=== PATIENT | female | born 1935 | race Caucasian/White ===

== ENCOUNTER → 2018-03-09 10:43 | Outpatient (CLI) | payer MEDICARE, SELFPAY ==
--- NOTE | 2018-03-09 11:34 | VDUE_ITS ---
Reason For Study: placement for dialysis Right Arm Left Arm Right cephalic vein is compressible. Left cephalic vein is compressible. Right Cephalic Vein at the shoulder Left Cephalic Vein at the shoulder measures .329 x .325 cm. measures .238 x .256 cm. Right Cephalic Vein mid bicep measures .266 Left Cephalic Vein at mid bicep x .283 cm. measures .242 x .246 cm. Right Cephalic Vein above antecub Left Cephalic Vein above antecub measures .216 x .229 cm. measures .224 x .212 cm. Right Cephalic Vein below antecub Left Cephalic Vein below antecub measures .304 x .312 cm. measures .116 x .100 cm. Right Cephalic Vein in the forearm Left Cephalic Vein in the forearm measures .233 x .245 cm. measures .104 x .100 cm. Right Cephalic Vein at the wrist Left Cephalic Vein at the wrist measures .133 x .141 cm. measures .104 x .100 cm. Right basilic vein is compressible. Left basilic vein is compressible. Right Basilic Vein at the origin Basilic vein at origin measures .254 x .237 measures .212 x .220 cm. cm. Right Basilic Vein above antecub Basilic vein above antecub measures .158 measures .224 x .241 cm. x .146 cm. Right Basilic Vein below antecub Basilic vein below antecub measures .104 measures .137 x .150 cm. x .100 cm. Right Basilic Vein in the forearm Basilic vein in the forearm measures .087 measures .129 x .150 cm. x .075 cm. Right Basilic Vein at the wrist Basilic V is too small to assess below this measures .104 x .096 cm. level. Brachial A 97.9 cm/s Brachial A 77.4 cm/s Brachial A .358 x .354 cm. Brachial A .316 x .341 cm. Radial A 69.2 cm/s Radial A 79.2 cm/s Radial A.154 x .158 cm. Radial A.141 x .133 cm. Interpretation Summary Patent and compressible bilateral upper extremity cephalic and basilic veins with dimensions as noted. Small left forearm cephalic vein throughout Small bilateral radial arteries Adequate bilateral brachial arteries Basilic veins are unusally small in the upper arms. Ordering Physician: Otf Blanco Performed By: Arnoldo Newsome RVT ???
== END ==
PROVIDERS: Family Provider Internal Medicine; PCP Internal Medicine; Referring Provider Internal Medicine Nephrology; Visit Provider Internal Medicine Nephrology
DX: Z01.818 Encounter for other preprocedural examination (principal); N18.6 End stage renal disease
CPT/HCPCS: G0365; 93970; 93971

== ENCOUNTER 2018-04-12 05:26 | Day surgery (SDC) | payer MEDICARE, SELFPAY ==
--- NOTE | 2018-04-07 08:52 | NURSING ---
TALKED WITH DAUGHTER OF PT. REQUESTS LAB TO BE DONE, CBC, AT [facility] TODAY. ORDER FAXED TO [facility]
[2018-04-12] VITALS (7 sets, daily range): BP systolic 120–143; BP diastolic 58–72; PULSE 65–72; RESP 14–16; TEMP 36.6–37.1; O2SAT 96–99; BMI 41.1
[2018-04-12 06:16] LABS: Bedside Glucose 87 mg/dL (70-110)
--- NOTE | 2018-04-12 07:01 | PCM.DC.FIST ---
Discharge Diet: Renal Diet Discharge Activity: May Not Drive - for 2-3 days or while taking narcotic pain medications., May Shower, May Take a Tub Bath - in 5 days. Lifting Restrictions: 5 pounds Keep extremity elevated above heart level: - - Keep arm elevated above the heart level for 3 days. Additional Activity Instructions:: Exercise hand vigorously with a stress ball. Call your doctor if your incision/area has: Continuous Slow Oozing, Sudden Increased Bleeding - apply pressure and call your doctor., Increased Pain/ Swelling, Increased Redness, Foul Smelling Discharge Call your doctor if you observe: Fever of 101 or Higher Suture Line Care: Avoid Pulling/Pushing, Avoid Pinching/Bending Cleanse incision/area with: Keep Dressing Clean & Dry Additional Dressing/Incision Instructions:: Change or remove dressing in one day. May protect with a gauze bandaid. Allergies/Adverse Reactions: Allergies Penicillins Allergy (Mild, Verified 04/06/18 10:32) Unknown Medications to take at Discharge carvedilol 3.125 mg tablet 3.125 mg PO BID 03/30/18 ergocalciferol (vitamin D2) 50,000 unit capsule 50,000 unit PO QWEEK 03/30/18 levothyroxine 100 mcg capsule 100 mcg PO DAILY 03/30/18 nateglinide 60 mg tablet 60 mg PO TID 03/30/18 paroxetine 40 mg tablet 40 mg PO DAILY 03/30/18 sevelamer carbonate 800 mg tablet 800 mg PO QPC 03/30/18 Aspirin [Aspir-Low] 81 mg PO DAILY 04/06/18 B Complex W-C No.20/Folic Acid [Nephrocaps Softgel] 1 mg PO DAILY 04/06/18 Cyanocobalamin (Vitamin B-12) [Cyanocobalamin Injection] 1,000 mcg IM QMONTH 04/06/18 Omeprazole [Prilosec] 20 mg PO PRN PRN 04/06/18 Rosuvastatin Calcium [Crestor] 40 mg PO QHS 04/06/18 Hydrocodone Bitart/Apap 5-325 [[place] 5MG-325MG] 1 tablet PO Q6H PRN PRN 2 Days #5 tablet 04/12/18 The following prescriptions were given: Hydrocodone Bitart/Apap 5-325 [[place] 5MG-325MG] 1 tablet PO Q6H PRN PRN 2 Days #5 tablet PRN Reason: Pain Primary Care Physician: Warren Cisse [Primary Care Provider] - Test Results: Test results from this visit will be discussed in further detail at your follow-up appointment, if applicable. Please Follow Up With: Francesco Quarles MD - [phone] When: Call to make an appointment for suture removal and follow up in 1 week.
[2018-04-12] MEDS: Heparin Injection (Vial) 5,000 UNIT/ML VIAL 5000 UNIT (08:15)
[2018-04-12] MEDS: Bupivacaine Mpf 0.5% 30 ML VIAL (08:20)
--- NOTE | 2018-04-12 08:36 | PCM.OPRPT ---
Problem List (1) Chronic renal failure, stage 5 Status: Acute Report of Operation Date of Procedure: 04/12/18 Pre-Operative Diagnosis: Stage V chronic renal failure in need of long-term hemodialysis access Post-Operative Diagnosis: Same Surgery/Procedure Performed:: Right upper extremity brachiocephalic arteriovenous fistula creation Description of Surgical Findings:: Timeout and informed consent was obtained. 82-year-old female was taken the operating placement table underwent monitored anesthesia care. 1% lidocaine mixed 50-50 with 0.5% Marcaine was used as local anesthetic. A total of 5 cc was used. Ultrasound been used to identify the course of the cephalic vein at the antecubital space. Local was instilled. A slightly oblique incision was created sharply dissection was used to harvest the cephalic vein side branches were secured with hemoclips and was dissected proximally distally to an adequate length would allow for then transposition over the brachial artery. Sharp blunt dissection was used to identify the brachial artery circumferential control was obtained. The patient received 6000 units of heparin intravenously. Peripheral vascular clamps were placed on the brachial artery 11 blade was used to make the arteriotomy was extended with Capps scissors the vein was ligated distally with 3-0 Vicryl it was spatulated and an end-to-side anastomosis was created with a running 7-0 Prolene. Prior to completion it appeared to be good antegrade and retrograde flow. The anastomosis was completed hemostasis was intact there was a Doppler audible bruit. Skin prep Steri-Strips Telfa tape dressings applied. The hand appeared to be viable. There was audible although lessened Doppler signals at the wrist. Hand appeared to be warm appeared to be viable decision was made to allow the patient to awake and monitor her for signs of a steal rather than immediately placing a restricting cuff on the vein which did not appear to be overly generous. The wound was closed with interrupted 3-0 Vicryl subdermal stitches and a running septic or 4-0 Monocryl. Steri-Strips Telfa tape dressings had been applied. Sponge instrument and needle counts reported the surgery were correct. Blood loss was minimal. She tolerated the procedure well was taken to the recovery area in satisfactory condition without apparent complication. Specimens none drains none blood loss minimal Francesco Quarles M.D., F.A.C.S. Type of Anesthesia:: Local MAC Anesthesiologist: Mauricio Broussard
== END 2018-04-12 10:21 | disposition home or self-care (01) ==
LOC: SDC 05:27 → AC 05:28
PROVIDERS: Family Provider Internal Medicine; PCP Internal Medicine; Referring Provider Surgery; Visit Provider Surgery
PROC: (CPT 36821; principal; 2018-04-12 07:00)
DX: Z45.2 Encounter for adjustment and management of vascular access device (principal); I13.11 Hypertensive heart and chronic kidney disease without heart failure, with stage 5 chronic kidney disease, or end stage renal disease; E11.22 Type 2 diabetes mellitus with diabetic chronic kidney disease; N18.5 Chronic kidney disease, stage 5; D63.1 Anemia in chronic kidney disease; E78.00 Pure hypercholesterolemia, unspecified; K21.9 Gastro-esophageal reflux disease without esophagitis; E06.9 Thyroiditis, unspecified; Z99.2 Dependence on renal dialysis; Z79.84 Long term (current) use of oral hypoglycemic drugs; Z79.82 Long term (current) use of aspirin; Z79.899 Other long term (current) drug therapy
CPT/HCPCS: 01844; 36821; 82962

== ENCOUNTER 2018-12-23 09:10 | Day surgery (SDC) | payer MEDICARE, SELFPAY ==
[2018-11-30 14:27] VITALS: BMI 41.1
--- NOTE | 2018-12-09 03:13 | HP_ITS ---
Intake Vital Signs 11/30/18 Body Mass Index (BMI) 41.1 11/30/18 Height 5 ft 1 in 11/30/18 Weight: 140 lb 11/30/18 Body Mass Index (BMI) 26.4 11/30/18 Blood Pressure 128/71 H 11/30/18 Blood Pressure Location Rt brachial 11/30/18 Respiratory Rate 18 11/30/18 Pulse Rate 66 11/30/18 Pulse Source Monitor 11/30/18 Temperature 98.5 F 11/30/18 Pulse Ox 97 11/30/18 Oxygen Delivery Method room air Intake Visit Reasons: NEEDS FISTULOGRAM/HI VEINOUS PRESSURES Chief Complaint: problem with AV Fistula Cancer Program Consultant Required: No Is patient in pain?: No Allergies Penicillins Allergy (Mild, Verified 11/30/18 14:26) Unknown Medications carvedilol 3.125 mg tablet 3.125 mg PO BID 03/30/18 [History Confirmed 11/30/18] ergocalciferol (vitamin D2) 50,000 unit capsule 50,000 unit PO QWEEK 03/30/18 [History Confirmed 11/30/18] levothyroxine 100 mcg capsule 100 mcg PO DAILY 03/30/18 [History Confirmed 11/30/18] nateglinide 60 mg tablet 60 mg PO TID 03/30/18 [History Confirmed 11/30/18] paroxetine 40 mg tablet 40 mg PO DAILY 03/30/18 [History Confirmed 11/30/18] sevelamer carbonate 800 mg tablet 800 mg PO QPC 03/30/18 [History Confirmed 11/30/18] Aspirin [Aspir-Low] 81 mg PO DAILY 04/06/18 [History Confirmed 11/30/18] B Complex W-C No.20/Folic Acid [Nephrocaps Softgel] 1 mg PO DAILY 04/06/18 [History Confirmed 11/30/18] Cyanocobalamin (Vitamin B-12) [Cyanocobalamin Injection] 1,000 mcg IM QMONTH 04/06/18 [History Confirmed 11/30/18] Omeprazole [Prilosec] 20 mg PO PRN PRN 04/06/18 [History Confirmed 11/30/18] Rosuvastatin Calcium [Crestor] 40 mg PO QHS 04/06/18 [History Confirmed 11/30/18] PFSH Medical History Problem with dialysis access (Acute) Chronic renal failure, stage 5 (Acute) Diabetes (Acute) Heart disease (Acute) Renal failure (Acute) hypercholesterolemia (Acute) HTN (hypertension) (Chronic) Surgical History (Updated 04/19/18 @ 15:00 by Yoselin Gresham) S/P appendectomy (Acute) S/P hysterectomy (Acute) dialysis cath placement (Acute) s/p right a-v fistula (Acute ~04/12/18) Family History Brother Cancer Heart disease Mother Breast cancer Father CVA (cerebral vascular accident) Social History (Updated 12/09/18 @ 15:12 by Janene Munoz PA-C) Smoking Status: Never smoker alcohol intake: never substance use type: does not use HPI HPI HPI: CARINE HODGE, is a 83 F who presents to the office today for HPI HPI Surgical H&P: Yes HPI: CARINE HODGE, is a 83 F who presents to the office today for difficulty with cannulation, decreased flows. Patient has a right upper extremity brachiocephalic arteriovenous fistula creation on 04/12/18. Patient states she started having difficult access approximately 3 weeks ago. She has also noted blood clots have been removed following treatments. Patient has never had a fistulogram previously. ROS General General: No weight change, appetite, fatigue, colon cancer, breast cancer or weakness HEENT HEENT: No difficulty swallowing, eye injury, eye surgery, swollen glands or hoarseness Endo Endocrine: Yes thyroid disease and diabetes mellitus; no thyroid cancer, Hair loss, heat intolerance or cold intolerance Skin Skin: No rash or changing moles Breast Breast: No left breast lump, right breast lump, nipple discharge, breast pain, abnormal mammogram, abnormal US or breast enlargement Musc Musculoskeletal: No back problems, arthritis, rheumatoid arthritis, gout or joint pain Cardio Cardiovascular: No murmur, pacemaker, heart disease, atrial fibrillation, high blood pressure, heart attack, heart stent, palpitations, shortness of breat with exertion or chest pain Psych Psychiatric: Yes depression; no anxiety or hearing voices Resp Respiratory: No shortness of breath, No sleep apnea, No cough, No COPD, No asthma, No emphysema, No wheezing Gastro Gastrointestinal: No abdominal pain, No nausea or vomiting, No diarrhea, No constipation, No blood in stool, No acid reflux, No hemorrhoids, No ulcers, No gallbladder problem, No black,tarry stools Hilario Hematologic: No blood thinners, No blood disorders, No bleeding, No anemia, No blood clots Neuro Neurologic: No system reviewed and no additional complaints, except as docu, No as per HPI, No abnormal walking, No abnormal hearing, No abnormal movements, No abnormal speech, No behavioral changes, No burning sensations, No confusion, No seizure-like activity, No unsteadiness, No dizziness, No localized weakness, No frequent falls, No headache(s), No lack of coordination, No loss of vision, No memory loss, No numbness, No other visual disturbances, No radiating pain, No restless legs, No sensory deficit, No fainting, No tingling, No tremor(s), No weakness, No other Exam Const General: cooperative, healthy appearing, comfortable, no acute distress HENMT Head: normal to inspection Eyes General: appearance normal, both eyes and all related structures Neck Neck: normal visual inspection Neck mass: No Chest Breast Palpation: No nipple discharge Resp Effort & Inspection: normal respiratory effort Cardio Rate: regular rate Rhythm: regular rhythm Heart Sounds: no murmurs GI Inspection: normal to inspection Palpation: soft Auscultation: normal bowel sounds Skin General: no rashes or lesions noted Neuro General: no focal motor deficits, CN's II-XI intact bilaterally Extrem Other: right upper extremity- good pulse, diminished bruit and thrill Psych Appearance: grossly normal Affect: normal affect Assessment & Plan Problems 1. Problem with dialysis access, initial encounter [id number] Plan Dr. Quarles will plan to perform a right upper extremity fistulogram with possible intervention. Procedure details, risks and benefits have been explained. Patient and her daughter have had the opportunity to ask and have questions answered. Patient may continue her daily aspirin. Coding Level of Care Code Off vis,est,level 4 Diagnoses Problem with dialysis access, initial encounter T82.997Q ??Encounter type: initial encounter 12/09/18 1510 <Electronically signed by Janene qiu PA-C> Date _ Janene Munoz PA-C I have re-examined the patient. There are no clinical changes since date of exam.
[2018-12-23 09:33] VITALS: BMI 36.8
--- NOTE | 2018-12-23 11:35 | OP.PCM_ITS ---
Problem List (1) Problem with dialysis access Status: Acute Qualifiers: Encounter type: initial encounter Report of Operation Date of Procedure: 12/23/18 Pre-Operative Diagnosis: Problem with dialysis access with easy bleeding Post-Operative Diagnosis: High-grade mid fistula venous stenosis Surgery/Procedure Performed:: Right upper extremity fistulogram with 7 x 4 [employer] angioplasty Description of Surgical Findings:: Timeout and informed consent was obtained. 83-year-old female was taken to the special procedure lab placed upon the table. The right upper extremity was sterilely prepped and draped. She received 50 mcg of fentanyl and 1/2 mg Versed is intravenous sedation. Under ultrasound guidance close to the antecubital space 2% lidocaine was instilled and a micropuncture needle was inserted antegrade with flow. 6 Croatian short sheath was inserted. Using Isovue contrast a fistulogram was obtained of the upper arm. This demonstrated excellent upper arm and central venous outflow. In the proximal third to mid third of the fistula there is an diffuse area of stenosis with an area of high-grade 90% stenosis. I was able to get an 035 angled Glidewire past this area. I utilized a 7 x 4 conquest balloon. At 2 separate locations making the total distance of the stricturing 7 cm long balloon angioplasty was performed up to 30 tata of p ressure. 2 separate insufflations at each site needed to be performed. During that I did a retrograde view demonstrating wide open patency of the anastomosis and very proximal portion of the fistula. Final fistulogram now demonstrated significant improvement in the areas of high- grade stenosis. There is nice antegrade flow. The sheath was removed and a U suture of 409 was placed. There was a good pulse and thrill and bruit Fistulogram demonstrates a right upper extremity brachiocephalic AV fistula. In the mid to proximal third of the fistula there is a approximately 7 cm area of stenosis with a focal area of 90% high-grade stenosis. Subsequent to the angioplasty there is resolution. There is good central venous outflow. Specimen none. Drains none. Blood loss minimal. Francesco Quarles M.D., F.A.C.S. Type of Anesthesia:: IV Sedation, Local
== END 2018-12-23 12:30 | disposition home or self-care (01) ==
PROVIDERS: Family Provider Internal Medicine; PCP Internal Medicine; Visit Provider Surgery
DX: T82.858A Stenosis of other vascular prosthetic devices, implants and grafts, initial encounter (principal); I13.11 Hypertensive heart and chronic kidney disease without heart failure, with stage 5 chronic kidney disease, or end stage renal disease; E11.22 Type 2 diabetes mellitus with diabetic chronic kidney disease; N18.5 Chronic kidney disease, stage 5; E78.00 Pure hypercholesterolemia, unspecified; Z79.82 Long term (current) use of aspirin; Z79.84 Long term (current) use of oral hypoglycemic drugs; Z79.899 Other long term (current) drug therapy
CPT/HCPCS: 36902; 76937; 99152; 99153; Q9967; C1725; C1769

== ENCOUNTER 2019-05-09 07:31 | Day surgery (SDC) | payer MEDICARE, SELFPAY ==
[2019-04-21 08:34] VITALS: BMI 36.8
[2019-05-09 08:05] VITALS: BP 128/61; PULSE 67; RESP 16; TEMP 36.9; O2SAT 94; BMI 28.7
[2019-05-09 08:05] LABS: Bedside Glucose 96 mg/dL (70-110)
--- NOTE | 2019-05-09 08:52 | PCM.HP.BLA ---
Problem List (1) Problem with dialysis access Status: Acute Qualifiers: Encounter type: initial encounter Qualified Code(s): T82.898A - Other specified complication of vascular prosthetic devices, implants and grafts, initial encounter History and Physical Date of Admission: 05/09/19 MR#:[id number] Name: CARINE HODGE Rep #: [id number] : 1935 Provider: Francesco Quarles MD Age/Sex: 83/F Location: [facility] Status: Signed with Addenda ADDENDUM by Francesco Quarles MD on 04/28/19 at 1528 Addendum entered and electronically signed by Francesco Quarles MD 04/28/19 15:28: April 28, 2019 I have obtained a copy of the patient's fistulogram that was performed April 12, [address] Filipe Slade at the vascular access center [facility]. This demonstrates occlusion of the cephalic vein seemingly from the mid upper arm proximally. There does appear to be generous collateral flow to the right upper arm basilic vein with otherwise good basilic vein central outflow. I believe that it would be a shame not to utilize this vein and possibly consider a transposition up to the cephalic vein which is already currently being utilized. It would likely be hameed to try to avoid PTFE if possible. Depending upon the surgical procedure however I may need to place tunneled dialysis catheters. We will instruct the patient as to how we would like to proceed. Some of the decisions will need to be made intraoperatively pending how the transposition proceeds and the amount of usable fistula at the completion of the procedure. Ultrasound would need to be utilized to help map the basilic vein prior to proceeding with a transposition and revision of the fistula. Francesco Quarles M.D., F.A.C.S. Intake Chief Complaint: problem with AV Fistula Allergies Penicillins Allergy (Mild, Verified 04/21/19 08:33) Unknown Medications carvedilol 3.125 mg tablet 3.125 mg PO BID 03/30/18 [History Confirmed 04/21/19] ergocalciferol (vitamin D2) 50,000 unit capsule 50,000 unit PO QWEEK 03/30/18 [History Confirmed 04/21/19] nateglinide 60 mg tablet 60 mg PO TID 03/30/18 [History Confirmed 04/21/19] paroxetine 40 mg tablet 40 mg PO DAILY 03/30/18 [History Confirmed 04/21/19] sevelamer carbonate 800 mg tablet 800 mg PO QPC 03/30/18 [History Confirmed 04/21/19] Aspirin [Aspir-Low] 81 mg PO DAILY 04/06/18 [History Confirmed 04/21/19] B Complex W-C No.20/Folic Acid [Nephrocaps Softgel] 1 mg PO DAILY 04/06/18 [History Confirmed 04/21/19] Cyanocobalamin (Vitamin B-12) [Cyanocobalamin Injection] 1,000 mcg IM QMONTH 04/06/18 [History Confirmed 04/21/19] Omeprazole [Prilosec] 20 mg PO PRN PRN 04/06/18 [History Confirmed 04/21/19] Rosuvastatin Calcium [Crestor] 40 mg PO QHS 04/06/18 [History Confirmed 04/21/19] cinacalcet 30 mg tablet 30 mg PO DAILY 04/21/19 [History Confirmed 04/21/19] levothyroxine 100 mcg capsule 112 mcg PO DAILY cap 04/21/19 [History Confirmed 04/21/19] Assessment & Plan Problems 1. Problem with dialysis access, initial encounter T82.583F Plan - Francesco Quarles MD 83-year-old female with right upper extremity brachiocephalic AV fistula problems with findings suggesting more proximal upper arm cephalic vein stenosis. She might be a candidate for partial transposition of the basilic vein as a means of salvage and revision. This would then required placement at the same setting tunneled dialysis catheters. She might be a candidate for placement of a immediate access graft as part of her dialysis access. This would ideally then avoid the need for tunneled catheters. The patient presents with her daughter today. I have discussed these issues and findings with them. We will tentatively set a surgery date and we will attempt to obtain the imaging required to proceed. I appreciate the ongoing opportunity of assisting with her surgical care. If her basilic vein is patent then in the perfect world I would utilize this to help revise her current AV fistula. The patient and daughter however are aware that this then will require tunneled dialysis catheters for period of time. CC:Dr Rupesh Quarles M.D., F.A.C.S. 04/28/19 1528 <Electronically signed by Francesco Quarles MD> Date Francesco Quarles MD cc: Shala Goddard MD; Warren Cisse ~* Signed Intake Vital Signs 04/21/19 Body Mass Index (BMI) 36.8 04/21/19 Height 4 ft 5 in 04/21/19 Weight: 140 lb 04/21/19 Body Mass Index (BMI) 35.0 04/21/19 Blood Pressure 110/72 04/21/19 Blood Pressure Location Lt brachial Intake Visit Reasons: recheck fistula/discuss revision Chief Complaint: problem with AV Fistula Griddle Attendant Required: No Is patient in pain?: No Allergies Penicillins Allergy (Mild, Verified 04/21/19 08:33) Unknown Medications carvedilol 3.125 mg tablet 3.125 mg PO BID 03/30/18 [History Confirmed 04/21/19] ergocalciferol (vitamin D2) 50,000 unit capsule 50,000 unit PO QWEEK 03/30/18 [History Confirmed 04/21/19] nateglinide 60 mg tablet 60 mg PO TID 03/30/18 [History Confirmed 04/21/19] paroxetine 40 mg tablet 40 mg PO DAILY 03/30/18 [History Confirmed 04/21/19] sevelamer carbonate 800 mg tablet 800 mg PO QPC 03/30/18 [History Confirmed 04/21/19] Aspirin [Aspir-Low] 81 mg PO DAILY 04/06/18 [History Confirmed 04/21/19] B Complex W-C No.20/Folic Acid [Nephrocaps Softgel] 1 mg PO DAILY 04/06/18 [History Confirmed 04/21/19] Cyanocobalamin (Vitamin B-12) [Cyanocobalamin Injection] 1,000 mcg IM QMONTH 04/06/18 [History Confirmed 04/21/19] Omeprazole [Prilosec] 20 mg PO PRN PRN 04/06/18 [History Confirmed 04/21/19] Rosuvastatin Calcium [Crestor] 40 mg PO QHS 04/06/18 [History Confirmed 04/21/19] cinacalcet 30 mg tablet 30 mg PO DAILY 04/21/19 [History Confirmed 04/21/19] levothyroxine 100 mcg capsule 112 mcg PO DAILY cap 04/21/19 [History Confirmed 04/21/19] [facility] Medical History Problem with dialysis access (Acute) Chronic renal failure, stage 5 (Acute) Diabetes (Acute) Heart disease (Acute) Renal failure (Acute) hypercholesterolemia (Acute) HTN (hypertension) (Chronic) Surgical History S/P appendectomy (Acute) S/P hysterectomy (Acute) dialysis cath placement (Acute) s/p right a-v fistula (Acute ~04/12/18) Family History Brother Cancer Heart disease Mother Breast cancer Father CVA (cerebral vascular accident) Social History (Updated 04/21/19 @ 09:52 by Francesco Quarles MD) Smoking Status: Never smoker alcohol intake: never substance use type: does not use HPI HPI HPI: CARINE HODGE, is a 83 F who presents to the office today for surgical consultation regarding revision of a right upper extremity brachial cephalic arteriovenous hemodialysis fistula. She had her fistulogram performed at the vascular access center in [facility] on April 12, 2019 and we do not have a disc of images available to us at this time. It is of note that scheduling was very tight locally which prompted her referral. My most recent intervention with her was December 23, 2018. I did a right upper extremity fistulogram which demonstrated high-grade mid fistula venous stenosis and I performed a 7 x 4 conquest angioplasty. The stricturing was 7 cm long. There was good results. Apparently at the current fistulogram the degree of stenosis was felt to be near complete occlusion with collateral flow. No intervention was pursued. The patient is felt to require revision. The type and means of revision however not clear obviously being left to me. However from the information available it appears that the more central cephalic vein is either tightly stenotic or occluded. HPI HPI HPI: CARINE HODGE, is a 83 F who presents to the office today for ROS General General: No weight change, appetite, fatigue, colon cancer, breast cancer or weakness HEENT HEENT: No difficulty swallowing, eye injury, eye surgery, swollen glands or hoarseness Endo Endocrine: Yes thyroid disease and diabetes mellitus; no thyroid cancer, Hair loss, heat intolerance or cold intolerance Skin Skin: No rash or changing moles Breast Breast: No left breast lump, right breast lump, nipple discharge, breast pain, abnormal mammogram, abnormal US or breast enlargement Musc Musculoskeletal: No back problems, arthritis, rheumatoid arthritis, gout or joint pain Cardio Cardiovascular: No murmur, pacemaker, heart disease, atrial fibrillation, high blood pressure, heart attack, heart stent, palpitations, shortness of breat with exertion or chest pain Psych Psychiatric: Yes depression; no anxiety or hearing voices Resp Respiratory: No shortness of breath, No sleep apnea, No cough, No COPD, No asthma, No emphysema, No wheezing Gastro Gastrointestinal: No abdominal pain, No nausea or vomiting, No diarrhea, No constipation, No blood in stool, No acid reflux, No hemorrhoids, No ulcers, No gallbladder problem, No black,tarry stools Hilario Hematologic: No blood thinners, No blood disorders, No bleeding, No anemia, No blood clots Neuro Neurologic: No weakness Exam Const General: cooperative, comfortable, no acute distress Nutritional Appearance: average body habitus Orientation: alert, awake Chest Chest palpation & inspection: normal inspection of the chest Rhythm: regular rhythm Heart Sounds: no murmurs GI Palpation: soft, no hepatosplenomegaly Auscultation: normal bowel sounds Skin General: no rashes or lesions noted Neuro Cognition: normal cognition Extrem General: no calf tenderness bilaterally Psych Affect: normal affect Assessment & Plan Problems 1. Problem with dialysis access, initial encounter T82.710S Plan 83-year-old female with right upper extremity brachiocephalic AV fistula problems with findings suggesting more proximal upper arm cephalic vein stenosis. She might be a candidate for partial transposition of the basilic vein as a means of salvage and revision. This would then required placement at the same setting tunneled dialysis catheters. She might be a candidate for placement of a immediate access graft as part of her dialysis access. This would ideally then avoid the need for tunneled catheters. The patient presents with her daughter today. I have discussed these issues and findings with them. We will tentatively set a surgery date and we will attempt to obtain the imaging required to proceed. I appreciate the ongoing opportunity of assisting with her surgical care. If her basilic vein is patent then in the perfect world I would utilize this to help revise her current AV fistula. The patient and daughter however are aware that this then will require tunneled dialysis catheters for period of time. CC:Dr Rupesh Quarles M.D., F.A.C.S. Coding Level of Care Code Off vis,est,level 3 Diagnoses Problem with dialysis access, initial encounter T82.898A ??Encounter type: initial encounter 04/21/19 0953 <Electronically signed by Francesco Quarles MD> Date Francesco Quarles MD Cosigner Signature: Date (if applicable) CC: Shala Goddard MD; Warren Cisse ~ I have re-examined the patient. There are no clinical changes since date of exam.
--- NOTE | 2019-05-09 09:15 | DCINST_ITS ---
Discharge Diet: Renal Diet Discharge Activity: May Not Drive - for 2-3 days or while taking narcotic pain medications., May Not Shower, May Take a Tub Bath - in 5 days. Lifting Restrictions: 5 pounds Keep extremity elevated above heart level: - - Keep arm elevated above the heart level for 3 days. Additional Activity Instructions:: Exercise hand vigorously with a stress ball. Call your doctor if your incision/area has: Continuous Slow Oozing, Sudden Increased Bleeding - apply pressure and call your doctor., Increased Pain/ Swelling, Increased Redness, Foul Smelling Discharge Call your doctor if you observe: Fever of 101 or Higher Suture Line Care: Avoid Pulling/Pushing, Avoid Pinching/Bending Cleanse incision/area with: Keep Dressing Clean & Dry Additional Dressing/Incision Instructions:: Elevate your right arm for comfort. You may apply ice for swelling. Please keep the incision clean and dry for 3 days. You will need to keep your chest catheter site clean and dry throughout its duration. You may remove your arm dressings in 2 days. Allergies/Adverse Reactions: Allergies Penicillins Allergy (Mild, Verified 05/09/19 08:13) Unknown Medications to take at Discharge carvedilol 3.125 mg tablet 3.125 mg PO BID 03/30/18 ergocalciferol (vitamin D2) 50,000 unit capsule 50,000 unit PO .QOWEEK 03/30/18 nateglinide 60 mg tablet 60 mg PO TID 03/30/18 paroxetine HCl 40 mg tablet 40 mg PO DAILY 03/30/18 sevelamer carbonate 800 mg tablet 800 mg PO QPC 03/30/18 Cyanocobalamin (Vitamin B-12) [Cyanocobalamin Injection] 1,000 mcg IM QMONTH 04/06/18 Rosuvastatin Calcium [Crestor] 40 mg PO QHS 04/06/18 cinacalcet 30 mg tablet 30 mg PO DAILY 04/21/19 levothyroxine 100 mcg capsule 112 mcg PO DAILY cap 04/21/19 Folic Acid/Vit B Complex and C [Renal-Tri Tablet] 0.8 mg PO DAILY 05/03/19 Primary Care Physician: Warren Cisse [Primary Care Provider] - Test Results: Test results from this visit will be discussed in further detail at your follow- up appointment, if applicable. Please Follow Up With: Francesco Quarles MD - [phone] When: Call to make an appointment for suture removal and follow up in 10 days.
[2019-05-09] MEDS: Heparin Injection (Vial) 5,000 UNIT/ML VIAL 5000 UNIT (11:08)
[2019-05-09] MEDS: Bupivacaine 0.5% PF 10 ML VIAL (11:58)
[2019-05-09] MEDS: Heparin 10,000 UNITS/10 ML Vial 10000 UNITS (12:04)
--- NOTE | 2019-05-09 12:13 | RAD_ITS ---
STUDY: X-RAY CHEST REASON FOR EXAM: Female, 83 years old. Line placement verification. TECHNIQUE: Single frontal view of the chest. COMPARISON: None. FINDINGS: Right internal jugular catheter present with the tip projected over the mid-SVC. Diffuse interstitial pattern. There is no demonstrated pleural abnormality. Moderate cardiomegaly. Normal mediastinum and rey. Normal visualized pulmonary arteries. Aortic tortuosity with calcification. Normal visualized thoracic spine. Normal visualized ribs, clavicles, and shoulders. There is no demonstrated abnormality of the visualized soft tissue structures of the upper abdomen. RAD/CXR for Line Placement IMPRESSION: Cardiomegaly with diffuse interstitial pattern compatible with mild interstitial edema/congestive failure. Placement of right internal jugular catheter with the tip projected over the mid-SVC. Electronically Signed: Josse Whittaker MD at 12:59 EST , Service support ,
--- NOTE | 2019-05-09 12:15 | OP.PCM_ITS ---
Problem List (1) Problem with dialysis access Status: Acute Qualifiers: Encounter type: initial encounter Qualified Code(s): T82.898A - Other specified complication of vascular prosthetic devices, implants and grafts, initial encounter Report of Operation Date of Procedure: 05/09/19 Pre-Operative Diagnosis: Diffuse stenosis proximal right upper arm cephalic vein complicating brachiocephalic arteriovenous fistula venous outflow Post-Operative Diagnosis: Same Surgery/Procedure Performed:: Transposition right upper arm basilic vein to proximal fistula cephalic vein re-creation of arteriovenous fistula. Right internal jugular tunneled pre-curved 19 cm palindrome catheters. Lot #[id number]. Expiry date 12/14/2023. Reference #[id number] Description of Surgical Findings:: Timeout and informed consent was obtained. 83-year-old female was taken to the operating placed on the table. Because of the complexity of anticipated procedure she underwent general anesthesia. Clindamycin 900 mg was given intravenously preoperatively. The right upper extremity was sterilely prepped and draped. Throughout the procedure 1% lidocaine mixed 50-50 with 0.5% Marcaine was used as a local anesthetic and additional local was used 0.5% lidocaine. I initially used ultrasound to identify the course of the basilic vein. I mapped that out. I then used ultrasound to identify the course of the patent right upper arm cephalic vein in the very proximal portion of the fistula close to the arterial anastomosis. I then instilled local at that area made a longitudinal incision directly over the cephalic vein where it was still patent did sharp and blunt dissection to circumferentially gain access around that portion of the fistula. Having done that then I serially made a longitudinal incision up the medial aspect of the distal left upper arm to identify the basilic vein. Side branches were secured with 3-0 Vicryl ligatures and hemoclips were indicated. I then tunneled a spot between the basilic vein and the mid upper arm cephalic vein. I ligated the basilic vein distally with hemoclips and then I spatulated it at a branch point. I tunneled that vein after marking it from the basilic position and over to the cephalic visit position. Patient received 7000 Hz of heparin. Put peripheral vascular clamps on the cephalic vein made a longitudinal arteriotomy only to find that there was sick significant amount of internal debris which I evacuated. I then transected the cephalic vein in half and secured the more distal stenotic portion with a running 2-0 Vicryl. I spatulated the inflow area and also spatulated the vein and I performed a end-to-end anastomosis with a running 7-0 Prolene. I felt that I had good anastomosis clamps were released there was no leak blood flow was excellent there was a pulse thrill and bruit. The basilic vein appeared to have a good positional lie as it then traveled under the subcutaneous tissue from the cephalic location over into the normal basilic position. The patient now received 20 mg of protamine as reversal. The wounds were closed with deep layers of interrupted 3-0 Vicryl and then running septic or 4-0 Monocryl. Steri-Strips Telfa ABD soft roll Beto wrap applied. The hand was mildly cool but essentially this is reestablishing her previous fistula. [place] that I was able to hear Doppler signals there was capillary refill although mildly diminished. This point I elected to leave the reconstruction as is then taking a conservative approach to her clinical progress. Gowns gloves were changed and radiation garments were applied. The right neck and chest were sterilely prepped and draped. Ultrasound was used to identify the right internal jugular vein it again local was instilled under ultrasound guidance. Under ultrasound guidance a micropuncture needle was inserted into the right internal jugular vein followed by Seldinger wire advancement. Microp uncture sheath was inserted. The 19 cm pre-curved palindrome catheter was tunneled from an appropriate place in the right chest to the neck site. An 035 J-wire was placed through the micropuncture sheath. Serial dilatation was performed. Then the sheath dilator was inserted and the 19 cm catheter was inserted. The sheath was split the catheter appeared to be in excellent position. There is easy aspiration through the catheter and the catheter was then irrigated with 2 cc of heparin solution per channel. The neck site was closed with interrupted 5-0 Vicryl subdermal stitch. Steri- Strip Telfa OpSite dressing applied. Silver impregnated dressing was applied to the catheter exit site and OpSite dressing. This is after 3-0 nylon securement. Sponge and instrument and needle counts reported the surgeon be correct. Blood loss throughout the procedure was approximately 100 cc. There were no apparent complication she was taken to the recovery area in satisfactory condition. Stat portable chest x-ray is pending. Specimens none. Drains none. Blood loss 100 cc Francesco Quarles M.D., F.A.C.S. Type of Anesthesia:: General Anesthesiologist: Alanna Stewart
[2019-05-09 12:18] VITALS: BP 128/61; BP 93/52; PULSE 75; RESP 16; TEMP 36.8; O2SAT 88
[2019-05-09 12:30] VITALS: BP 128/61; BP 89/61; PULSE 72; RESP 16; O2SAT 100
[2019-05-09 12:45] VITALS: BP 103/75; BP 128/61; PULSE 73; RESP 16; O2SAT 93
[2019-05-09 13:00] VITALS: BP 128/61; BP 98/62; PULSE 71; RESP 16; TEMP 36.9; O2SAT 92
[2019-05-09 13:01] LABS: Bedside Glucose 92 mg/dL (70-110)
[2019-05-09] MEDS: Acetaminophen 325 MG Tablet 650 MG PO (14:02)
[2019-05-09 14:05] VITALS: BP 107/51; BP 128/61; PULSE 73; RESP 16; TEMP 37; O2SAT 90
== END 2019-05-09 14:37 | disposition home or self-care (01) ==
LOC: SDC 07:32 → AC 07:34
PROVIDERS: Family Provider Internal Medicine; PCP Internal Medicine; Referring Provider Surgery; Visit Provider Surgery
PROC: (CPT 36558; principal; 2019-05-09 09:15)
DX: T82.858A Stenosis of other vascular prosthetic devices, implants and grafts, initial encounter (principal); I12.0 Hypertensive chronic kidney disease with stage 5 chronic kidney disease or end stage renal disease; E11.22 Type 2 diabetes mellitus with diabetic chronic kidney disease; N18.6 End stage renal disease; Z99.2 Dependence on renal dialysis; E78.00 Pure hypercholesterolemia, unspecified; E07.9 Disorder of thyroid, unspecified; K21.9 Gastro-esophageal reflux disease without esophagitis; F32.9 Major depressive disorder, single episode, unspecified; Z78.0 Asymptomatic menopausal state; Z88.0 Allergy status to penicillin; Z79.82 Long term (current) use of aspirin; Z79.899 Other long term (current) drug therapy; Z86.718 Personal history of other venous thrombosis and embolism
CPT/HCPCS: 01844; 36558; 36819; 76937; 71045; 76000; 82962; C1750; C1757; J2405

== ENCOUNTER → 2019-09-28 14:36 | Outpatient (CLI) | payer MEDICARE, SELFPAY ==
[2019-09-28 13:37] VITALS: BMI 26.4
[2019-09-28 15:07] LABS: Absolute Lymphocyte Count 1.09 X10^3/uL (0.83-4.51); Absolute Neutrophil Count 6.5 X10^3/uL (2.0-7.7); Basophil# 0.09 X10^3/uL; Eosinophil# 0.12 X10^3/uL; Eosinophils% 1.4 % (0-5); Hematocrit 37.4 % (37-47); Hemoglobin 11.7 g/dL (12.0-15.0); Lymphocyte # 1.09 X10^3/ul (4.0); Lymphocyte % 12.7 % (19-41); Mean Corp Hgb Conc 31.3 g/dL (32-36); Mean Corpuscular Hgb 32.1 pg (27.0-32.0); Mean Corpuscular Volume 102.7 fL (81-99); Mean Platelet Vol. 11.2 fl (6.2-12.0); Monocyte# 0.77 X10^3/uL; NRBC Flagged by Analyzer 0 % (0-5); Neutrophil # 6.46 X10^3/uL (2.7-7.7); Neutrophil % 75.3 % (47-70); Platelet Count 201 K/mm3 (150-450); RBC Distribution Width CV 15.2 % (11.6-14.6); RBC Distribution Width SD 57.1 fl (35.1-43.9); Red Blood Count 3.64 M/mm3 (4.2-5.4); White Blood Count 8.6 K/mm3 (4.4-11.0)
[2019-09-28 15:24] LABS: Anion Gap 4 (5-15); BUN 11 mg/dL (7-18); BUN/Creat Ratio 4.2 RATIO (10-20); Calcium,Total 9.1 mg/dL (8.5-10.1); Chloride 103 mmol/L (98-107); EST Glomerular Filtration Rate 19 mL/min (>60); Est Glom Filt Rate - Afr Amer 23 mL/min (>60); Glucose 134 mg/dL (74-106); Potassium 3.5 mmol/L (3.5-5.1); Sodium Level 144 mmol/L (136-145)
[2019-09-28 22:54] LABS: Xtra Tube EP Lab EXTRA TUBE
== END ==
PROVIDERS: PCP Internal Medicine; Referring Provider Physician Assistant; Visit Provider Physician Assistant
DX: N18.5 Chronic kidney disease, stage 5 (principal); T82.898A Other specified complication of vascular prosthetic devices, implants and grafts, initial encounter
CPT/HCPCS: 36415; 80048; 85025

== ENCOUNTER 2019-10-06 08:49 | Day surgery (SDC) | payer MEDICARE, SELFPAY ==
--- NOTE | 2019-09-28 03:11 | HP_ITS ---
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 Is patient in pain?: No Allergies Penicillins Allergy (Mild, Verified 09/28/19 13:27) Unknown Medications carvedilol 3.125 mg tablet 3.125 mg PO BID 03/30/18 [History Confirmed 09/28/19] ergocalciferol (vitamin D2) 1,250 mcg (50,000 unit) capsule 50,000 unit PO .QOWEEK 03/30/18 [History Confirmed 09/28/19] nateglinide 60 mg tablet 60 mg PO TID 03/30/18 [History Confirmed 09/28/19] paroxetine HCl 40 mg tablet 40 mg PO DAILY 03/30/18 [History Confirmed 09/28/19] sevelamer carbonate 800 mg tablet 800 mg PO QPC 03/30/18 [History Confirmed 09/28/19] Cyanocobalamin (Vitamin B-12) [Cyanocobalamin Injection] 1,000 mcg IM QMONTH 04/06/18 [History Confirmed 09/28/19] Rosuvastatin Calcium [Crestor] 40 mg PO QHS 04/06/18 [History Confirmed 09/28/19] levothyroxine 100 mcg capsule 112 mcg PO DAILY cap 04/21/19 [History Confirmed 09/28/19] Folic Acid/Vit B Complex and C [Renal-Tri Tablet] 0.8 mg PO DAILY 05/03/19 [History Confirmed 09/28/19] [facility] Medical History Problem with dialysis access (Acute) Chronic renal failure, stage 5 (Acute) Diabetes (Acute) Heart disease (Acute) Renal failure (Acute) hypercholesterolemia (Acute) HTN (hypertension) (Chronic) Surgical History S/P appendectomy (Acute) S/P hysterectomy (Acute) dialysis cath placement (Acute) s/p right a-v fistula (Acute ~04/12/18) Family History Brother Cancer Heart disease Mother Breast cancer Father CVA (cerebral vascular accident) Social History (Updated 09/28/19 @ 15:22 by Janene Munoz PA-C) alcohol intake: never substance use type: does not use HPI HPI HPI: CARINE HODGE, is a 84 F who presents to the office today for HPI HPI Surgical H&P: Yes HPI: CARINE HODGE, is a 84 F who presents to the office today for increased venous and arterial pressures. Change in bruit and thrill. Patient has a right upper extremity brachiocephalic AV fistula. On 05/09/19, Dr. Quarles performed a transposition of her distal right upper arm basilic vein to her cephalic vein. Patient denies pain/discomfort of the fistula. She denies prolonged bleeding. She is currently on dialysis M, W, and F. Patient denies previous intervention of fistula. ROS General General: No weight change, appetite, fatigue, colon cancer, breast cancer or weakness HEENT HEENT: No difficulty swallowing, eye injury, eye surgery, swollen glands or hoarseness Endo Endocrine: Yes thyroid disease and diabetes mellitus; no thyroid cancer, Hair loss, heat intolerance or cold intolerance Skin Skin: No rash or changing moles Breast Breast: No left breast lump, right breast lump, nipple discharge, breast pain, abnormal mammogram, abnormal US or breast enlargement Musc Musculoskeletal: No back problems, arthritis, rheumatoid arthritis, gout or joint pain Cardio Cardiovascular: No murmur, pacemaker, heart disease, atrial fibrillation, high blood pressure, heart attack, heart stent, palpitations, shortness of breat with exertion or chest pain Psych Psychiatric: Yes depression; no anxiety or hearing voices Resp Respiratory: No shortness of breath, No sleep apnea, No cough, No COPD, No asthma, No emphysema, No wheezing Gastro Gastrointestinal: No abdominal pain, No nausea or vomiting, No diarrhea, No constipation, No blood in stool, No acid reflux, No hemorrhoids, No ulcers, No gallbladder problem, No black,tarry stools Hilario Hematologic: No blood thinners, No blood disorders, No bleeding, No anemia, No blood clots Neuro Neurologic: No weakness Exam Const General: cooperative, healthy appearing, comfortable, no acute distress HENMT Head: normal to inspection Eyes General: appearance normal, both eyes and all related structures Neck Neck: normal visual inspection Neck mass: No Chest Breast Palpation: No nipple discharge Resp Effort & Inspection: normal respiratory effort Auscultation: clear to auscultation bilaterally Cardio Rate: regular rate Rhythm: regular rhythm Heart Sounds: no murmurs GI Inspection: normal to inspection Palpation: soft Auscultation: normal bowel sounds Skin General: no rashes or lesions noted Neuro General: no focal motor deficits, CN's II-XI intact bilaterally Extrem General: normal to inspection Other: transposed right upper extremity AV fistula- good pulse. Diminished bruit and thrill. Psych Appearance: grossly normal Affect: normal affect Assessment & Plan Problems 1. Problem with dialysis access, initial encounter T82.898A Plan Dr. Quarles will plan to perform a right upper extremity fistulogram. Procedure details, risks and benefits have been explained. Patient is aware she will be needing COVID testing the day prior to the procedure. Patient will be obtaining labs today. Patient and her daughter have had the opportunity to ask and have questions answered. She is not currently on any blood thinners. Patient verbally understands and agrees with the plan. Orders Orders: Basic Metabolic Profile (BMP) Today N18.5 CBC W/Diff, Automated Today T82.898A CORONAVIRUS 19, GEOVANI Today Coding Level of Care Code Off vis,est,level 3 Diagnoses Problem with dialysis access, initial encounter T82.898A ??Encounter type: initial encounter 09/28/19 1522 <Electronically signed by Janene qiu PA-C> Date _ Janene Munoz PA-C
[2019-09-28 13:37] VITALS: BMI 26.4
[2019-10-05 11:00] VITALS: BMI 26.4
--- NOTE | 2019-10-06 10:19 | HP.PCM_ITS ---
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 Is patient in pain?: No Allergies Penicillins Allergy (Mild, Verified 09/28/19 13:27) Unknown Medications carvedilol 3.125 mg tablet 3.125 mg PO BID 03/30/18 [History Confirmed 09/28/19] ergocalciferol (vitamin D2) 1,250 mcg (50,000 unit) capsule 50,000 unit PO .QOWEEK 03/30/18 [History Confirmed 09/28/19] nateglinide 60 mg tablet 60 mg PO TID 03/30/18 [History Confirmed 09/28/19] paroxetine HCl 40 mg tablet 40 mg PO DAILY 03/30/18 [History Confirmed 09/28/19] sevelamer carbonate 800 mg tablet 800 mg PO QPC 03/30/18 [History Confirmed 09/28/19] Cyanocobalamin (Vitamin B-12) [Cyanocobalamin Injection] 1,000 mcg IM QMONTH 04/06/18 [History Confirmed 09/28/19] Rosuvastatin Calcium [Crestor] 40 mg PO QHS 04/06/18 [History Confirmed 09/28/19] levothyroxine 100 mcg capsule 112 mcg PO DAILY cap 04/21/19 [History Confirmed 09/28/19] Folic Acid/Vit B Complex and C [Renal-Tri Tablet] 0.8 mg PO DAILY 05/03/19 [History Confirmed 09/28/19] [facility] Medical History Problem with dialysis access (Acute) Chronic renal failure, stage 5 (Acute) Diabetes (Acute) Heart disease (Acute) Renal failure (Acute) hypercholesterolemia (Acute) HTN (hypertension) (Chronic) Surgical History S/P appendectomy (Acute) S/P hysterectomy (Acute) dialysis cath placement (Acute) s/p right a-v fistula (Acute ~04/12/18) Family History Brother Cancer Heart disease Mother Breast cancer Father CVA (cerebral vascular accident) Social History (Updated 09/28/19 @ 15:22 by Janene Munoz PA-C) alcohol intake: never substance use type: does not use HPI HPI HPI: CARINE HODGE is a 84 F who presents to the office today for HPI HPI Surgical H&P: Yes HPI: CARINE HODGE is a 84 F who presents to the office today for increased venous and arterial pressures. Change in bruit and thrill. Patient has a right upper extremity brachiocephalic AV fistula. On 05/09/19, Dr. Quarles performed a transposition of her distal right upper arm basilic vein to her cephalic vein. Patient denies pain/discomfort of the fistula. She denies prolonged bleeding. She is currently on dialysis M, W, and F. Patient denies previous intervention of fistula. ROS General General: No weight change, appetite, fatigue, colon cancer, breast cancer or weakness HEENT HEENT: No difficulty swallowing, eye injury, eye surgery, swollen glands or hoarseness Endo Endocrine: Yes thyroid disease and diabetes mellitus; no thyroid cancer, Hair loss, heat intolerance or cold intolerance Skin Skin: No rash or changing moles Breast Breast: No left breast lump, right breast lump, nipple discharge, breast pain, abnormal mammogram, abnormal US or breast enlargement Musc Musculoskeletal: No back problems, arthritis, rheumatoid arthritis, gout or joint pain Cardio Cardiovascular: No murmur, pacemaker, heart disease, atrial fibrillation, high blood pressure, heart attack, heart stent, palpitations, shortness of breat with exertion or chest pain Psych Psychiatric: Yes depression; no anxiety or hearing voices Resp Respiratory: No shortness of breath, No sleep apnea, No cough, No COPD, No asthma, No emphysema, No wheezing Gastro Gastrointestinal: No abdominal pain, No nausea or vomiting, No diarrhea, No constipation, No blood in stool, No acid reflux, No hemorrhoids, No ulcers, No gallbladder problem, No black,tarry stools Hilario Hematologic: No blood thinners, No blood disorders, No bleeding, No anemia, No blood clots Neuro Neurologic: No weakness Exam Const General: cooperative, healthy appearing, comfortable, no acute distress [facility] Head: normal to inspection Eyes General: appearance normal, both eyes and all related structures Neck Neck: normal visual inspection Neck mass: No Chest Breast Palpation: No nipple discharge Resp Effort & Inspection: normal respiratory effort Auscultation: clear to auscultation bilaterally Cardio Rate: regular rate Rhythm: regular rhythm Heart Sounds: no murmurs GI Inspection: normal to inspection Palpation: soft Auscultation: normal bowel sounds Skin General: no rashes or lesions noted Neuro General: no focal motor deficits, CN's II-XI intact bilaterally Extrem General: normal to inspection Other: transposed right upper extremity AV fistula- good pulse. Diminished bruit and thrill. Psych Appearance: grossly normal Affect: normal affect Assessment & Plan Problems 1. Problem with dialysis access, initial encounter T82.898A Plan Dr. Quarles will plan to perform a right upper extremity fistulogram. Procedure details, risks and benefits have been explained. Patient is aware she will be needing COVID testing the day prior to the procedure. Patient will be obtaining labs today. Patient and her daughter have had the opportunity to ask and have questions answered. She is not currently on any blood thinners. Patient verbally understands and agrees with the plan. Orders Orders: Basic Metabolic Profile (BMP) Today N18.5 CBC W/Diff, Automated Today T82.898A CORONAVIRUS 19, GEOVANI Today Coding Level of Care Code Off vis,est,level 3 Diagnoses Problem with dialysis access, initial encounter T82.898A ??Encounter type: initial encounter 09/28/19 8192 <Electronically signed by Janene qiu PA-C> Date _ Janene Munoz PA-C I have re-examined the patient. There are no clinical changes since date of exam. The patient is aware that there is a COVID-19 pandemic. She is aware that the [facility] administration suggests a low local incidence. It is felt appropriate to proceed with intervention on her AV fistula at this time Francesco Quarles M.D., F.A.C.S.
--- NOTE | 2019-10-06 11:58 | PCM.OPRPT ---
Problem List (1) Problem with dialysis access Status: Acute Qualifiers: Report of Operation Date of Procedure: 10/06/19 Pre-Operative Diagnosis: Problem with right upper extremity arteriovenous hemodialysis fistula bleeding Post-Operative Diagnosis: Right upper extremity transposed basilic vein to distal upper arm cephalic vein arteriovenous fistula with critical central subclavian vein stenosis Surgery/Procedure Performed:: Right upper extremity fistulogram with 10 x 4 Union angioplasty and 7 x 39 vbx Viabahn stent grafting over dilated with a 14 x 4 Head Waters balloon. [id number]. [id number] Description of Surgical Findings:: Timeout and informed consent was obtained. 84-year-old female was taken to the special procedure lab placed upon the table. The right upper extremity was sterilely prepped and draped. She received 1 mg of Versed is intravenous sedation. 2% lidocaine was instilled a local anesthetic at the antecubital space antegrade with flow at the right upper extremity fistula. The patient has a previous history of a right upper extremity brachial to cephalic AV fistula. The mid and proximal upper arm portions of the cephalic vein became stenotic associated transposition of the basilic vein to the distal right upper arm cephalic vein and a bypass. She now has increased bleeding. Local was instilled. Micropuncture needle inserted antegrade with flow. Micropuncture wire inserted. 6 Cymraes short sheath was inserted. Using Isovue contrast a fistulogram was attained of the upper arm and chest area. This demonstrated that the bypass appeared to be generally patent. There appeared to be critical venous stenosis at the subclavian vein jugular vein junction however the jugular vein did not appear to have backflow suggesting potential previous occlusion. I was able to advance an 035 Glidewire. I placed a 10 x 4 Union balloon performed balloon angioplasty of the venous stenosis centrally. I then used the balloon at very low pressure to gently treat the anastomotic area between the cephalic vein and the basilic vein in the transposition bypass. Follow-up fistulogram demonstrated no improvement in the central venous stenosis whatsoever. I re-balloon the area that did not resolve the issue there appeared to be residual tight stenosis. The fistula remained very pulsatile with high pressure. This point I elected to place a VBX Viabahn stent graft. We up sheath to a 7 Cymraes sheath. I placed the stent took several pictures inflated the stent it appeared to be absolutely midportion in the area of disease. I then had plan to over distend the stent however upon advancing the 10 x 4 Union the stent appeared to shift centrally. We then urgently prepped the right groin. Under ultrasound guidance 2% lidocaine was instilled the right groin. Under ultrasound guidance a singlewall needle was advanced in the right common femoral vein followed by Seldinger wire advancement. 7 Cymraes short sheath dilator was inserted. 035 J-wire was inserted rapidly into the superior vena cava. This was followed by a 14 x 4 Head Waters balloon. The balloon was partially inflated and the J-wire were exchanged out for an 035 angled Glidewire I was able to gain access through the stent. I was then able to use the Head Waters balloon to reposition the stent into correct positioning. From the arm I advanced the previous 7 x 39 mm balloon that had been used previously fix the stent and I again reinflated the stent using that balloon. Having then positioned it it was still evident that the stent wanted to shift so I advanced the Head Waters balloon from the groin into the stent. I was able to insufflate the Head Waters balloon to 8 tata of pressure. I then deflated the balloon and slightly repositioned it and insufflated it to 9 tata of pressure. I then took several fistulogram's from the arm. This demonstrated what appeared to be excellent positioning of the stent with complete and total wall apposition throughout. There appeared to be actually advancement of the stent slightly beyond the dawson normal diameter. We then spent approximately 20 minutes in observation. Grant took still film. Took a final follow-up fistulogram. This demonstrated absolutely no movement of the stent graft. The fistula had resumption of normal pulse and palpable thrill. The venous pressure had markedly diminished. After very careful inspection of the stent graft I felt that it was now well opposed and well positioned in correct position resolving the area of high-grade stenosis and resolving the high-pressure venous stenosis. Elected to complete the procedure at this time. Under inspection wires and balloons were removed. U suture of 4-0 nylon was placed in the arm. Direct pressure was held on the groin site. When I achieve the groin access the patient did receive an extra milligram of Versed. She did remain cardiovascular stable throughout. Preintervention she had some cardiac irregularity with slight episodes of mild tachycardia. This did not appear to be related to the wires or balloons. She will be observed postoperatively. I will obtain a portable chest x-ray. At this point I do not perceive that additional intervention is indicated or required. Specimens none. Drains none. Blood loss minimal. Francesco Quarles M.D., F.A.C.S. A cautionary note will be placed in her charting that no attempt through right internal jugular access should never be attempted. Type of Anesthesia:: IV Sedation, Local
--- NOTE | 2019-10-06 12:57 | RAD_ITS ---
STUDY: X-RAY CHEST REASON FOR EXAM: Female, 84 years old. right subclavian stent placement TECHNIQUE: Single AP portable view of the chest. COMPARISON: 05/09/2019. FINDINGS: Diffuse increased interstitial markings are noted in both lungs suggesting mild pulmonary edema or chronic interstitial lung disease. There has been no significant change since the previous study. There is no demonstrated pleural abnormality. There is moderate cardiac enlargement. Normal mediastinum and rey. Normal visualized pulmonary arteries. Normal visualized aortic arch and descending thoracic aorta. Normal visualized thoracic spine. There is degenerative osteoarthritis of the bilateral shoulders. There is no demonstrated abnormality of the visualized soft tissue structures of the upper abdomen. RAD/Chest 1 View (Portable) IMPRESSION: Diffuse increased interstitial markings are noted in both lungs suggesting mild pulmonary edema or chronic interstitial lung disease. There has been no significant change since the previous study. Electronically Signed: Pam Fu, at 13:26 EDT Tel , Service support ,
== END 2019-10-06 14:27 | disposition home or self-care (01) ==
PROVIDERS: PCP Internal Medicine; Referring Provider Surgery; Visit Provider Surgery
DX: T82.898A Other specified complication of vascular prosthetic devices, implants and grafts, initial encounter (principal); T82.858A Stenosis of other vascular prosthetic devices, implants and grafts, initial encounter; I13.11 Hypertensive heart and chronic kidney disease without heart failure, with stage 5 chronic kidney disease, or end stage renal disease; E11.22 Type 2 diabetes mellitus with diabetic chronic kidney disease; N18.5 Chronic kidney disease, stage 5; Z99.2 Dependence on renal dialysis; E78.00 Pure hypercholesterolemia, unspecified; Z79.84 Long term (current) use of oral hypoglycemic drugs; Z79.899 Other long term (current) drug therapy; Z11.59 Encounter for screening for other viral diseases
CPT/HCPCS: 36902; 36908; 71045; 76937; 87635; 99152; 99153; G2023; Q9967; C1725; C1769; C1874; C1894; U0004

== ENCOUNTER → 2019-10-11 17:03 | Outpatient (CLI) | payer MEDICARE, SELFPAY ==
[2019-10-05 11:00] VITALS: BMI 26.4
--- NOTE | 2019-10-11 17:10 | RAD_ITS ---
STUDY: X-RAY CHEST REASON FOR EXAM: Female, 84 years old. Stent placement in the right subclavian. TECHNIQUE: Single AP portable view of the chest. COMPARISON: October 06, 2019. FINDINGS: The lungs are clear and expanded. There is slight clearing of interstitial markings in the upper lobes There is no demonstrated pleural abnormality. There is borderline cardiomegaly. Normal mediastinum and rey. Normal visualized pulmonary arteries. There is atherosclerotic calcification of the aortic arch with tortuosity. Again seen is a stent overlying the left lung apex thought to lie within the expected position of the right innominate/central subclavian vein. This appears unchanged from previous examination. No visualized osseous changes. There is no demonstrated abnormality of the visualized soft tissue structures of the upper abdomen. RAD/Chest 1 View IMPRESSION: Mild clearing in the upper lobes without other interval change. Electronically Signed: Eric Lambert DO at 22:54 EDT Tel [phone], Service support ,
== END ==
PROVIDERS: PCP Internal Medicine; Visit Provider Surgery
DX: Z95.828 Presence of other vascular implants and grafts (principal)
CPT/HCPCS: 71045

== ENCOUNTER 2019-10-18 09:06 | Day surgery (SDC) | payer MEDICARE, SELFPAY ==
--- NOTE | 2019-09-28 03:11 | HP_ITS ---
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 Is patient in pain?: No Allergies Penicillins Allergy (Mild, Verified 09/28/19 13:27) Unknown Medications carvedilol 3.125 mg tablet 3.125 mg PO BID 03/30/18 [History Confirmed 09/28/19] ergocalciferol (vitamin D2) 1,250 mcg (50,000 unit) capsule 50,000 unit PO .QOWEEK 03/30/18 [History Confirmed 09/28/19] nateglinide 60 mg tablet 60 mg PO TID 03/30/18 [History Confirmed 09/28/19] paroxetine HCl 40 mg tablet 40 mg PO DAILY 03/30/18 [History Confirmed 09/28/19] sevelamer carbonate 800 mg tablet 800 mg PO QPC 03/30/18 [History Confirmed 09/28/19] Cyanocobalamin (Vitamin B-12) [Cyanocobalamin Injection] 1,000 mcg IM QMONTH 04/06/18 [History Confirmed 09/28/19] Rosuvastatin Calcium [Crestor] 40 mg PO QHS 04/06/18 [History Confirmed 09/28/19] levothyroxine 100 mcg capsule 112 mcg PO DAILY cap 04/21/19 [History Confirmed 09/28/19] Folic Acid/Vit B Complex and C [Renal-Tri Tablet] 0.8 mg PO DAILY 05/03/19 [History Confirmed 09/28/19] [facility] Medical History Problem with dialysis access (Acute) Chronic renal failure, stage 5 (Acute) Diabetes (Acute) Heart disease (Acute) Renal failure (Acute) hypercholesterolemia (Acute) HTN (hypertension) (Chronic) Surgical History S/P appendectomy (Acute) S/P hysterectomy (Acute) dialysis cath placement (Acute) s/p right a-v fistula (Acute ~04/12/18) Family History Brother Cancer Heart disease Mother Breast cancer Father CVA (cerebral vascular accident) Social History (Updated 09/28/19 @ 15:22 by Janene Munoz PA-C) alcohol intake: never substance use type: does not use HPI HPI HPI: CARINE HODGE, is a 84 F who presents to the office today for HPI HPI Surgical H&P: Yes HPI: CARINE HODGE, is a 84 F who presents to the office today for increased venous and arterial pressures. Change in bruit and thrill. Patient has a right upper extremity brachiocephalic AV fistula. On 05/09/19, Dr. Quarles performed a transposition of her distal right upper arm basilic vein to her cephalic vein. Patient denies pain/discomfort of the fistula. She denies prolonged bleeding. She is currently on dialysis M, W, and F. Patient denies previous intervention of fistula. ROS General General: No weight change, appetite, fatigue, colon cancer, breast cancer or weakness HEENT HEENT: No difficulty swallowing, eye injury, eye surgery, swollen glands or hoarseness Endo Endocrine: Yes thyroid disease and diabetes mellitus; no thyroid cancer, Hair loss, heat intolerance or cold intolerance Skin Skin: No rash or changing moles Breast Breast: No left breast lump, right breast lump, nipple discharge, breast pain, abnormal mammogram, abnormal US or breast enlargement Musc Musculoskeletal: No back problems, arthritis, rheumatoid arthritis, gout or joint pain Cardio Cardiovascular: No murmur, pacemaker, heart disease, atrial fibrillation, high blood pressure, heart attack, heart stent, palpitations, shortness of breat with exertion or chest pain Psych Psychiatric: Yes depression; no anxiety or hearing voices Resp Respiratory: No shortness of breath, No sleep apnea, No cough, No COPD, No asthma, No emphysema, No wheezing Gastro Gastrointestinal: No abdominal pain, No nausea or vomiting, No diarrhea, No constipation, No blood in stool, No acid reflux, No hemorrhoids, No ulcers, No gallbladder problem, No black,tarry stools Hilario Hematologic: No blood thinners, No blood disorders, No bleeding, No anemia, No blood clots Neuro Neurologic: No weakness Exam Const General: cooperative, healthy appearing, comfortable, no acute distress HENMT Head: normal to inspection Eyes General: appearance normal, both eyes and all related structures Neck Neck: normal visual inspection Neck mass: No Chest Breast Palpation: No nipple discharge Resp Effort & Inspection: normal respiratory effort Auscultation: clear to auscultation bilaterally Cardio Rate: regular rate Rhythm: regular rhythm Heart Sounds: no murmurs GI Inspection: normal to inspection Palpation: soft Auscultation: normal bowel sounds Skin General: no rashes or lesions noted Neuro General: no focal motor deficits, CN's II-XI intact bilaterally Extrem General: normal to inspection Other: transposed right upper extremity AV fistula- good pulse. Diminished bruit and thrill. Psych Appearance: grossly normal Affect: normal affect Assessment & Plan Problems 1. Problem with dialysis access, initial encounter T82.898A Plan Dr. Quarles will plan to perform a right upper extremity fistulogram. Procedure details, risks and benefits have been explained. Patient is aware she will be needing COVID testing the day prior to the procedure. Patient will be obtaining labs today. Patient and her daughter have had the opportunity to ask and have questions answered. She is not currently on any blood thinners. Patient verbally understands and agrees with the plan. Orders Orders: Basic Metabolic Profile (BMP) Today N18.5 CBC W/Diff, Automated Today T82.898A CORONAVIRUS 19, GEOVANI Today Coding Level of Care Code Off vis,est,level 3 Diagnoses Problem with dialysis access, initial encounter T82.898A ??Encounter type: initial encounter 09/28/19 1522 <Electronically signed by Janene qiu PA-C> Date _ Janene Munoz PA-C
[2019-10-05 11:00] VITALS: BMI 26.4
[2019-10-17 08:38] VITALS: BMI 26.4
--- NOTE | 2019-10-18 09:29 | HP.PCM_ITS ---
Problem List (1) Problem with dialysis access Status: Acute Qualifiers: Encounter type: subsequent encounter Qualified Code(s): T82.898D - Other specified complication of vascular prosthetic devices, implants and grafts, subsequent encounter History and Physical Date of Admission: 10/18/19 On 10/17/19 @ 06:41 Francesco Quarles Wrote To Francesco Quarles Problem List (1) Problem with dialysis access Status: Acute Qualifiers: History and Physical Date of Admission: 10/06/19 Intake Visit Reasons: Fistulagram/High Arterial & Venous Pressure Chief Complaint: recheck fistula Vice President Quality Assurance Required: No Is patient in pain?: No Allergies Penicillins Allergy (Mild, Verified 09/28/19 13:27) Unknown Medications carvedilol 3.125 mg tablet 3.125 mg PO BID 03/30/18 [History Confirmed 09/28/19] ergocalciferol (vitamin D2) 1,250 mcg (50,000 unit) capsule 50,000 unit PO .QOWEEK 03/30/18 [History Confirmed 09/28/19] nateglinide 60 mg tablet 60 mg PO TID 03/30/18 [History Confirmed 09/28/19] paroxetine HCl 40 mg tablet 40 mg PO DAILY 03/30/18 [History Confirmed 09/28/19] sevelamer carbonate 800 mg tablet 800 mg PO QPC 03/30/18 [History Confirmed 09/28/19] Cyanocobalamin (Vitamin B-12) [Cyanocobalamin Injection] 1,000 mcg IM QMONTH 04/06/18 [History Confirmed 09/28/19] Rosuvastatin Calcium [Crestor] 40 mg PO QHS 04/06/18 [History Confirmed 09/28/19] levothyroxine 100 mcg capsule 112 mcg PO DAILY cap 04/21/19 [History Confirmed 09/28/19] Folic Acid/Vit B Complex and C [Renal-Tri Tablet] 0.8 mg PO DAILY 05/03/19 [History Confirmed 09/28/19] [facility] Medical History Problem with dialysis access (Acute) Chronic renal failure, stage 5 (Acute) Diabetes (Acute) Heart disease (Acute) Renal failure (Acute) hypercholesterolemia (Acute) HTN (hypertension) (Chronic) Surgical History S/P appendectomy (Acute) S/P hysterectomy (Acute) dialysis cath placement (Acute) s/p right a-v fistula (Acute ~04/12/18) Family History Brother Cancer Heart disease Mother Breast cancer Father CVA (cerebral vascular accident) Social History (Updated 09/28/19 @ 15:22 by Janene Munoz PA-C) alcohol intake: never substance use type: does not use HPI HPI HPI: CARINE HODGE, is a 84 F who presents to the office today for HPI HPI Surgical H&P: Yes HPI: CARINE HODGE, is a 84 F who presents to the office today for increased venous and arterial pressures. Change in bruit and thrill. Patient has a right upper extremity brachiocephalic AV fistula. On 05/09/19, Dr. Quarles performed a transposition of her distal right upper arm basilic vein to her cephalic vein. Patient denies pain/discomfort of the fistula. She denies prolonged bleeding. She is currently on dialysis M, W, and F. Patient denies previous intervention of fistula. ROS General General: No weight change, appetite, fatigue, colon cancer, breast cancer or weakness HEENT HEENT: No difficulty swallowing, eye injury, eye surgery, swollen glands or hoarseness Endo Endocrine: Yes thyroid disease and diabetes mellitus; no thyroid cancer, Hair loss, heat intolerance or cold intolerance Skin Skin: No rash or changing moles Breast Breast: No left breast lump, right breast lump, nipple discharge, breast pain, abnormal mammogram, abnormal US or breast enlargement Musc Musculoskeletal: No back problems, arthritis, rheumatoid arthritis, gout or joint pain Cardio Cardiovascular: No murmur, pacemaker, heart disease, atrial fibrillation, high blood pressure, heart attack, heart stent, palpitations, shortness of breat with exertion or chest pain Psych Psychiatric: Yes depression; no anxiety or hearing voices Resp Respiratory: No shortness of breath, No sleep apnea, No cough, No COPD, No asthma, No emphysema, No wheezing Gastro Gastrointestinal: No abdominal pain, No nausea or vomiting, No diarrhea, No constipation, No blood in stool, No acid reflux, No hemorrhoids, No ulcers, No gallbladder problem, No black,tarry stools Hilario Hematologic: No blood thinners, No blood disorders, No bleeding, No anemia, No blood clots Neuro Neurologic: No weakness Exam Const General: cooperative, healthy appearing, comfortable, no acute distress HENKS Head: normal to inspection Eyes General: appearance normal, both eyes and all related structures Neck Neck: normal visual inspection Neck mass: No Chest Breast Palpation: No nipple discharge Resp Effort & Inspection: normal respiratory effort Auscultation: clear to auscultation bilaterally Cardio Rate: regular rate Rhythm: regular rhythm Heart Sounds: no murmurs GI Inspection: normal to inspection Palpation: soft Auscultation: normal bowel sounds Skin General: no rashes or lesions noted Neuro General: no focal motor deficits, CN's II-XI intact bilaterally Extrem General: normal to inspection Other: transposed right upper extremity AV fistula- good pulse. Diminished bruit and thrill. Psych Appearance: grossly normal Affect: normal affect Assessment & Plan Problems 1. Problem with dialysis access, initial encounter T82.898A Plan Dr. Quarles will plan to perform a right upper extremity fistulogram. Procedure details, risks and benefits have been explained. Patient is aware she will be needing COVID testing the day prior to the procedure. Patient will be obtaining labs today. Patient and her daughter have had the opportunity to ask and have questions answered. She is not currently on any blood thinners. Patient verbally understands and agrees with the plan. Orders Orders: Basic Metabolic Profile (BMP) Today N18.5 CBC W/Diff, Automated Today T82.898A CORONAVIRUS 19, GEOVANI Today Coding Level of Care Code Off vis,est,level 3 Diagnoses Problem with dialysis access, initial encounter T82.892T Encounter type: initial encounter 09/28/19 1522<Electronically signed by Janene Munoz PA-C> Date Janene Munoz PA-C I have re-examined the patient. There are no clinical changes since date of exam. The patient is aware that there is a COVID-19 pandemic. She is aware that the [facility] administration suggests a low local incidence. It is felt appropriate to proceed with intervention on her AV fistula at this time Francesco Quarles M.D., F.A.C.S. Subsequently on October 06, 2019 the patient underwent a right upper extremity fistulogram. A critically tight stenosis was identified at the subclavian vein jugular vein innominate junction. A balloon expandable Viabahn stent was placed. There was some shifting of the stent during placement requiring urgent right groin access to reposition the stent. There is currently concern on my part that the stent needs additional fixation especially in light that she might require further intervention through the right upper strongly which could accidentally dislodge the stent. It is for this reason that she is returning. We anticipate a right femoral vein approach. We anticipate placing a large diameter self expanding stent so as to cover and protect the current balloon expandable stent that is present. The patient is aware of this technique benefit risk complications. It will help protect her if she were to incidentally have future right internal jugular intervention which at this point is strongly discouraged and she is aware. This documentation has been placed throughout her charting and nephrology in the dialysis center has been notified as well. Francesco Quarles MD I have re-examined the patient. There are no clinical changes since date of exam. Procedure Criteria Procedure Type: Elective COVID Risk Discussion: The surgeon/proceduralist and patient have discussed in detail the risk of exposure to and/or potential harm posed by the COVID-19 virus with having a surgery/procedure at this time versus the risk of delaying the surgery/procedure. It is not possible to know either the risk of delaying the surgery or procedure or chance of getting an infection with perfect accuracy, but a joint decision was made between the patient and the surgeon/proceduralist to proceed at this time with the scheduled surgery/procedure as indicated on the consent form.
[2019-10-18 09:41] LABS: Anion Gap 8 (5-15); BUN 17 mg/dL (7-18); BUN/Creat Ratio 5.5 RATIO (10-20); Calcium,Total 9.3 mg/dL (8.5-10.1); Chloride 102 mmol/L (98-107); Creatinine, Serum 3.09 mg/dL (0.55-1.02); EST Glomerular Filtration Rate 15 mL/min (>60); Est Glom Filt Rate - Afr Amer 19 mL/min (>60); Estimated Creatinine Clearance 10.41 ml/min; Glucose 112 mg/dL (74-106); Potassium 4.4 mmol/L (3.5-5.1); Sodium Level 142 mmol/L (136-145)
--- NOTE | 2019-10-18 11:22 | OP.PCM_ITS ---
Problem List (1) Problem with dialysis access Status: Acute Qualifiers: Encounter type: subsequent encounter Qualified Code(s): T82.898D - Other specified complication of vascular prosthetic devices, implants and grafts, subsequent encounter Report of Operation Date of Procedure: 10/18/19 Pre-Operative Diagnosis: Proximal right subclavian vein stenosis Post-Operative Diagnosis: Same Surgery/Procedure Performed:: Right subclavian/innominate vein 14 x 60 mm Smart stent placement Description of Surgical Findings:: Timeout and informed consent was obtained. 84-year-old female was taken to the special procedures lab placed upon the table. 1 mg of Versed was given intravenously. The right groin was sterilely prepped draped. Ultrasound was used to identify the right common femoral vein. 2% lidocaine was instilled under ultrasound guidance. Micropuncture needle inserted in the right common femoral vein followed by Seldinger wire advancement. Micropuncture sheath inserted. 035 J-wire was inserted. A 7 [place] short sheath was inserted. An 035 J-wire was advanced using a 4 [place] glide cath into the subclavian vein proximal to a previously placed VBX Viabahn stent. A venous study was obtained with hand-injection of Isovue. This demonstrated the VBX to be foreshortened and appeared to have a reverse taper at the area of stenosis. After measurements I selected a 14 x 60 mm SMART stent. That was advanced over the J- wire. It was carefully deployed so as to completely and trap the Viabahn. I then seated in place with a 12 x 4 [place] balloon with 3 separate insufflations. There was previously a residual degree of in-stent stenosis just at the edge of the previous VBX stent. That now resolved with the repeat stenting. Delivery mechanism and wire and balloon carefully all removed in the appropriate stage. Venous sheath was removed the groin pressure was held for hemostasis no apparent complication she taught a procedure well was taken to the recovery area in satisfactory addition. Findings demonstrate that the patient has a previous Viabahn VBX stent deployed in the proximal right subclavian extending into the innominate vein. There is a reverse taper to it and residual stenosis in the subclavian portion. Subsequent to placement of the SMART stent and repeat balloon dilatation there is now excellent coverage of the VBX with the SMART stent and resolution of the venous stenosis. Specimens none. Drains none. Blood loss minimal. Francesco Quarles M.D., F.A.C.S. Type of Anesthesia:: IV Sedation, Local
== END 2019-10-18 12:55 | disposition home or self-care (01) ==
LOC: CLSP 09:07
PROVIDERS: PCP Internal Medicine; Referring Provider Internal Medicine; Visit Provider Surgery
DX: T82.858A Stenosis of other vascular prosthetic devices, implants and grafts, initial encounter (principal); I12.0 Hypertensive chronic kidney disease with stage 5 chronic kidney disease or end stage renal disease; E11.22 Type 2 diabetes mellitus with diabetic chronic kidney disease; N18.5 Chronic kidney disease, stage 5; E78.00 Pure hypercholesterolemia, unspecified; Z99.2 Dependence on renal dialysis; Z79.84 Long term (current) use of oral hypoglycemic drugs; Z79.899 Other long term (current) drug therapy
CPT/HCPCS: 36415; 37238; 76937; 80048; 99152; 99153; Q9967; C1769; C1876; C1894

== ENCOUNTER 2020-01-17 10:36 | Day surgery (SDC) | payer MEDICARE, SELFPAY ==
[2019-12-27 13:01] VITALS: BMI 26.4
[2020-01-16 13:40] VITALS: BMI 26.4
--- NOTE | 2020-01-17 12:09 | HP.PCM_ITS ---
Problem List (1) Problem with dialysis access Status: Acute Qualifiers: History and Physical Date of Admission: 01/17/20 Intake Visit Reasons: PROBLEMS WITH FISTULA Chief Complaint: recheck fistula Car Porter Required: No Is patient in pain?: No Allergies Penicillins Allergy (Mild, Verified 12/27/19 15:01) Unknown Medications carvedilol 3.125 mg tablet 3.125 mg PO BID 03/30/18 [History Confirmed 12/27/19] ergocalciferol (vitamin D2) 1,250 mcg (50,000 unit) capsule 50,000 unit PO .QOWEEK 03/30/18 [History Confirmed 12/27/19] nateglinide 60 mg tablet 60 mg PO TID 03/30/18 [History Confirmed 12/27/19] paroxetine HCl 40 mg tablet 40 mg PO DAILY 03/30/18 [History Confirmed 12/27/19] sevelamer carbonate 800 mg tablet 800 mg PO QPC 03/30/18 [History Confirmed 12/27/19] Cyanocobalamin (Vitamin B-12) [Cyanocobalamin Injection] 1,000 mcg IM QMONTH 04/06/18 [History Confirmed 12/27/19] Rosuvastatin Calcium [Crestor] 40 mg PO QHS 04/06/18 [History Confirmed 12/27/19] levothyroxine 100 mcg capsule 112 mcg PO DAILY cap 04/21/19 [History Confirmed 12/27/19] Folic Acid/Vit B Complex and C [Renal-Tri Tablet] 0.8 mg PO DAILY 05/03/19 [History Confirmed 12/27/19] Is last menstrual period known: No Post menopausal: Yes Patient : No [facility] Medical History Problem with dialysis access (Acute) Chronic renal failure, stage 5 (Acute) Diabetes (Acute) Heart disease (Acute) Renal failure (Acute) Viabahn Stent to Right Subclavian (Acute) hypercholesterolemia (Acute) HTN (hypertension) (Chronic) Surgical History S/P appendectomy (Acute) S/P hysterectomy (Acute) dialysis cath placement (Acute) s/p right a-v fistula (Acute ~04/12/18) Family History Brother Cancer Heart disease Mother Breast cancer Father CVA (cerebral vascular accident) Social History (Updated 12/27/19 @ 15:[address] Francesco Quarles MD) Smoking Status: Never smoker alcohol intake: never substance use type: does not use HPI HPI HPI: CARINE HODGE, is a 84 F who presents to the office today for surgical consultation regarding increased bleeding right upper extremity AV fistula. The patient has a jump fistula from her cephalic vein to the basilic vein because of proximal cephalic vein stenosis. She also had findings of proximal subclavian vein stenosis for which I placed a VBX Viabahn stent and then subsequently placed a 14 x 60 mm SMART stent. That most recent procedure was October 18, 2019. There now is concerns that she has increased bleeding from her fistula. Report of Operation Date of Procedure: 10/18/19 Pre-Operative Diagnosis: Proximal right subclavian vein stenosis Post-Operative Diagnosis: Same Surgery/Procedure Performed:: Right subclavian/innominate vein 14 x 60 mm Smart stent placement Description of Surgical Findings:: Timeout and informed consent was obtained. 84-year-old female was taken to the special procedures lab placed upon the table. 1 mg of Versed was given intravenously. The right groin was sterilely prepped draped. Ultrasound was used to identify the right common femoral vein. 2% lidocaine was instilled under ultrasound guidance. Micropuncture needle inserted in the right common fe moral vein followed by Seldinger wire advancement. Micropuncture sheath inserted. 035 J-wire was inserted. A 7 Swedish short sheath was inserted. An 035 J-wire was advanced using a 4 Swedish glide cath into the subclavian vein proximal to a previously placed VBX Viabahn stent. A venous study was obtained with hand-injection of Isovue. This demonstrated the VBX to be foreshortened and appeared to have a reverse taper at the area of stenosis. After measurements I selected a 14 x 60 mm SMART stent. That was advanced over the J- wire. It was carefully deployed so as to completely and trap the Viabahn. I then seated in place with a 12 x 4 [place] balloon with 3 separate insufflations. There was previously a residual degree of in-stent stenosis just at the edge of the previous VBX stent. That now resolved with the repeat stenting. Delivery mechanism and wire and balloon carefully all removed in the appropriate stage. Venous sheath was removed the groin pressure was held for hemostasis no apparent complication she taught a procedure well was taken to the recovery area in satisfactory addition. Findings demonstrate that the patient has a previous Viabahn VBX stent deployed in the proximal right subclavian extending into the innominate vein. There is a reverse taper to it and residual stenosis in the subclavian portion. Subsequent to placement of the SMART stent and repeat balloon dilatation there is now excellent coverage of the VBX with the SMART stent and resolution of the venous stenosis. Specimens none. Drains none. Blood loss minimal. Francesco Quarles M.D., F.A.C.S. Type of Anesthesia:: IV Sedation, Local 10/18/19 1126<Electronically signed by Francesco Quarles MD> Date Francesco Quarles MD HPI HPI HPI: CARINE HODGE, is a 84 F who presents to the office today for ROS General General: No weight change, appetite, fatigue, colon cancer, breast cancer or weakness HEENT HEENT: No difficulty swallowing, eye injury, eye surgery, swollen glands or hoarseness Endo Endocrine: Yes thyroid disease and diabetes mellitus; no thyroid cancer, Hair loss, heat intolerance or cold intolerance Skin Skin: No rash or changing moles Breast Breast: No left breast lump, right breast lump, nipple discharge, breast pain, abnormal mammogram, abnormal US or breast enlargement Musc Musculoskeletal: No back problems, arthritis, rheumatoid arthritis, gout or joint pain Cardio Cardiovascular: No murmur, pacemaker, heart disease, atrial fibrillation, high blood pressure, heart attack, heart stent, palpitations, shortness of breat with exertion or chest pain Psych Psychiatric: Yes depression; no anxiety or hearing voices Resp Respiratory: No shortness of breath, No sleep apnea, No cough, No COPD, No asthma, No emphysema, No wheezing Gastro Gastrointestinal: No abdominal pain, No nausea or vomiting, No diarrhea, No constipation, No blood in stool, No acid reflux, No hemorrhoids, No ulcers, No gallbladder problem, No black,tarry stools Hilario Hematologic: No blood thinners, No blood disorders, No bleeding, No anemia, No blood clots Neuro Neurologic: No weakness Exam Const General: comfortable, no acute distress Nutritional Appearance: average body habitus Orientation: alert HENMT Head: normal to inspection Chest Breast Palpation: No nipple discharge Resp Auscultation: clear to auscultation bilaterally Other: Diminished respiratory excursion Cardio Rate: regular rate Rhythm: regular rhythm Heart Sounds: no murmurs GI Palpation: soft Extrem Other: Right upper extremity has the initial part of the brachiocephalic fistula which is now diffusely aneurysmal then an area of relative narrowing prior to the basilic vein jump portion that takes it back to the basilic vein outflow. There is a higher pitch bruit in the middle of that arc. Assessment & Plan Problems 1. Problem with dialysis access, subsequent encounter T82.288D Plan Although her most recent intervention has been central intervention at the p roximal subclavian with placement of the Viabahn and then subsequent securement of that Viabahn with a SMART stent. I have a lesser degree of suspicion that she has recurrent central stenosis low of course she could I suspect however that she has stenosis close to where the basilic vein was used as a jump graft to the cephalic vein. I propose a right upper extremity fistulogram. I would access in the cephalic vein close to the arterial anastomosis antegrade with flow. I suspect that at the venous venous anastomosis are within that curvilinear arc between the cephalic vein and the basilic vein that recurrent stenosis will be identified at that location. Careful inspection of her central venous outflow will also be pursued. By this time the Viabahn and SMART stent should be well seated in place. Francesco Quarles M.D., F.A.C.S. Coding Level of Care Code Off vis,est,level 2 Diagnoses Problem with dialysis access, subsequent encounter T82.432D ??Encounter type: subsequent encounter I have re-examined the patient. There are no clinical changes since date of exam. Procedure Criteria Procedure Type: Elective COVID Risk Discussion: The surgeon/proceduralist and patient have discussed in detail the risk of exposure to and/or potential harm posed by the COVID-19 virus with having a surgery/procedure at this time versus the risk of delaying the surgery/procedure. It is not possible to know either the risk of delaying the surgery or procedure or chance of getting an infection with perfect accuracy, but a joint decision was made between the patient and the surgeon/proceduralist to proceed at this time with the scheduled surgery/procedure as indicated on the consent form.
--- NOTE | 2020-01-17 12:42 | OP.PCM_ITS ---
Problem List (1) Problem with dialysis access Status: Acute Qualifiers: Report of Operation Date of Procedure: 01/17/20 Pre-Operative Diagnosis: Bleeding right upper extremity transposed cephalic vein to basilic vein arteriovenous hemodialysis fistula Post-Operative Diagnosis: Distal right upper arm venous stenosis x2 Surgery/Procedure Performed:: Right upper extremity fistulogram with 6 x 2 [employer] angioplasty Description of Surgical Findings:: Timeout and informed consent was obtained. 84-year-old female was taken to the special procedures lab placed upon the table. The right upper extremity was sterilely prepped draped. Closer to the arterial anastomosis 2% lidocaine was instilled. Micropuncture needle inserted. Micropuncture wire inserted. A 6 Vincent[place] short sheath dilator inserted. A fistulogram was obtained using Isovue contrast of the right upper arm and central venous outflow. There is evidence of a previous Viabahn stent graft and a large self-expanding stent graft in the proximal right subclavian vein extending into the brachial cephalic vein. This is widely patent. The upper arm basilic vein is widely patent. There is evide nce of transposition of the distal right upper arm basilic vein that then is anastomosed to the right upper arm cephalic vein which then is anastomosed to the brachial artery. There is an S-curve present. At 2 spots within that S- curve there are 2 areas for high-grade venous stenosis. 1 is 80%. And that is closer to where the basilic vein occurs back into its nikolai position. The second area is within the anastomotic zone. A 6 x 2 [employer] balloon was inserted. Balloon angioplasty of both spots were performed twice both up to 3 minutes a time. At the completion final views demonstrated marked improvement at both sites. No extravasation. Clinically the fistula has resumption of a palpable thrill. Sheath was removed. A U suture of 4-0 nylon was placed. Images demonstrate a right upper extremity arteriovenous hemodialysis fistula. The previous cephalic vein to brachial artery anastomosis is widely patent as is the proximal about 8 cm of that fistula. Then there is evidence of the basilic vein that has been transposed and anastomosed to the cephalic vein. At the anastomosis and within the curvature of the basilic vein there were 2 areas of clinically significant gnosis. The remainder of the upper arm basilic vein is widely patent as is the central venous outflow. Subsequent to the angioplasty the areas of significant venous stenosis have resolved. Consideration for next intervention might be for a slightly larger [employer] balloon or consideration of a larger [place] Balloon. Francesco Quarles M.D., F.A.C.S. Type of Anesthesia:: Local
== END 2020-01-17 14:00 | disposition home or self-care (01) ==
LOC: CLSP 10:36
PROVIDERS: PCP Internal Medicine; Referring Provider Surgery; Visit Provider Surgery
DX: T82.858A Stenosis of other vascular prosthetic devices, implants and grafts, initial encounter (principal); I13.11 Hypertensive heart and chronic kidney disease without heart failure, with stage 5 chronic kidney disease, or end stage renal disease; E11.22 Type 2 diabetes mellitus with diabetic chronic kidney disease; N18.5 Chronic kidney disease, stage 5; E78.00 Pure hypercholesterolemia, unspecified; Z99.2 Dependence on renal dialysis; Z79.84 Long term (current) use of oral hypoglycemic drugs; Z79.899 Other long term (current) drug therapy
CPT/HCPCS: 36902; Q9967; C1725; C1769

== ENCOUNTER 2021-08-01 10:58 | Day surgery (SDC) | payer MEDICARE, SELFPAY ==
--- NOTE | 2021-08-01 11:11 | HP.PCM_ITS ---
HPI - General HPI Narrative CARINE HODGE, is a 85 F who presents for an urgent fistulogram. Patient recently had a fistulogram in [place] by Dr. Burks on 06/27/21. 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 About 20% stenosis of arterial limb of the fistula. There is approximately 80% stenosis proximal to the stent in the brac hial cephalic vein. Central stenosis was not addressed at the time of the procedure and recommended patient return to see Dr. Quarles. Patient is not currently maintained on anticoagulants. Patient was in [place] ED yesterday. She was sent by the dialysis center following a bleeding episode. The dialysis center was unable to stop the bleeding. A figure 8 suture was placed and the patient was wrapped with gauze, coban and twin wrap. Patient's daughter is present as patient has dementia. Patient's daughter notes she may have had some bleeding, however none that has been significant enough to send her to the ED. Patient's daughter also notes godfrey has been scheduling the patient 3 months to have images completed of the fistula to keep an eye on the fistula. Patient denies any pain today. Patient previous history per Dr. Quarles: CARINE HODGE, is a 84 F who presents to the office today for surgical consultation regarding increased bleeding right upper extremity AV fistula. The patient has a jump fistula from her cephalic vein to the basilic vein because of proximal cephalic vein stenosis. She also had findings of proximal subclavian vein stenosis for which I placed a VBX Viabahn stent and then subsequently placed a 14 x 60 mm SMART stent. That most recent procedure was October 18, 2019. There now is concerns that she has increased bleeding from her fistula. Report of Operation Date of Procedure: 10/18/19 Pre-Operative Diagnosis: Proximal right subclavian vein stenosis Post-Operative Diagnosis: Same Surgery/Procedure Performed:: Right subclavian/innominate vein 14 x 60 mm Smart stent placement Description of Surgical Findings:: Timeout and informed consent was obtained. 84-year-old female was taken to the special procedures lab placed upon the table. 1 mg of Versed was given intravenously. The right groin was sterilely prepped draped. Ultrasound was used to identify the right common femoral vein. 2% lidocaine was instilled under ultrasound guidance. Micropuncture needle inserted in the right common femoral vein followed by Seldinger wire advancement. Micropuncture sheath inserted. 035 J-wire was inserted. A 7 [place] short sheath was inserted. An 035 J-wire was advanced using a 4 [place] glide cath into the subclavian vein proximal to a previously placed VBX Viabahn stent. A venous study was obtained with hand-injection of Isovue. This demonstrated the VBX to be foreshortened and appeared to have a reverse taper at the area of stenosis. After measurements I selected a 14 x 60 mm SMART stent. That was advanced over the J- wire. It was carefully deployed so as to completely and trap the Viabahn. I then seated in place with a 12 x 4 [place] balloon with 3 separate insufflations. There was previously a residual degree of in-stent stenosis just at the edge of the previous VBX stent. That now resolved with the repeat stenting. Delivery mechanism and wire and balloon carefully all removed in the appropriate stage. Venous sheath was removed the groin pressure was held for hemostasis no apparent complication she taught a procedure well was taken to the recovery area in satisfactory addition. Findings demonstrate that the patient has a previous Viabahn VBX stent deployed in the proximal right subclavian extending into the innominate vein. There is a reverse taper to it and residual stenosis in the subclavian portion. Subsequent to placement of the SMART stent and repeat balloon dilatation there is now excellent coverage of the VBX with the SMART stent and resolution of the venous stenosis. Specimens none. Drains none. Blood loss minimal. Francesco Quarles M.D., F.A.C.S. Type of Anesthesia:: IV Sedation, Local 10/18/19 1126<Electronically signed by Francesco Quarles MD> Date Francesco Quarles MD [facility] Medical History (Updated 08/01/21 @ 11:17 by Janene RAMIREZ PA-C) Chronic renal failure, stage 5 Diabetes Heart disease HTN (hypertension) hypercholesterolemia Problem with dialysis access Renal failure Viabahn Stent to Right Subclavian Home Medications carvedilol 3.125 mg tablet 3.125 mg PO BID 03/30/18 [History Last Taken 05/09/19 06:00] ergocalciferol (vitamin D2) 1,250 mcg (50,000 unit) capsule 50,000 unit PO .QOWEEK 03/30/18 [History Last Taken Unknown] nateglinide 60 mg tablet 60 mg PO TID 03/30/18 [History Last Taken Unknown] paroxetine HCl 40 mg tablet 40 mg PO DAILY 03/30/18 [History Last Taken Unknown] sevelamer carbonate 800 mg tablet 800 mg PO QPC 03/30/18 [History Last Taken Unknown] Cyanocobalamin (Vitamin B-12) [Cyanocobalamin Injection] 1,000 mcg IM QMONTH 04/06/18 [History Last Taken Unknown] rosuvastatin 40 mg PO QHS 04/06/18 [History Last Taken Unknown] levothyroxine 100 mcg capsule 112 mcg PO DAILY cap 04/21/19 [History Last Taken 05/09/19 06:00] B complex-vitamin C-folic acid 0.8 mg PO DAILY 05/03/19 [History Last Taken Unknown] Allergy/AdvReac Type Severity Reaction Status Date / Time Penicillins Allergy Mild Unknown Verified 08/01/21 10:52 Family History Brother Cancer Heart disease Mother Breast cancer Father CVA (cerebral vascular accident) Surgical History dialysis cath placement S/P appendectomy S/P hysterectomy s/p right a-v fistula (~04/12/18) Social History (Updated 12/27/19 @ 15:[address] Francesco Quarles MD) Smoking Status: Never smoker alcohol intake: never substance use type: does not use ROS Constitutional Constitutional: Reports systems reviewed and no addt'l complaints, except as documented Eyes Eyes: Reports systems reviewed and no addt'l complaints, except as documented ENT HEENT: Reports systems reviewed and no addt'l complaints, except as documented Cardiovascular Cardiovascular: Reports systems reviewed and no addt'l complaints, except as documented Respiratory/Chest Respiratory/Chest: Reports systems reviewed and no addt'l complaints, except as documented Gastrointestinal Gastrointestinal: Reports systems reviewed and no addt'l complaints, except as documented Genitourinary Genitourinary: Reports systems reviewed and no addt'l complaints, except as documented Musculoskeletal Musculoskeletal: Reports systems reviewed and no addt'l complaints, except as documented Integumentary Integumentary: Reports systems reviewed and no addt'l complaints, except as documented Neurologic Neurologic: Reports systems reviewed and no addt'l complaints, except as documented Psychiatric Psychiatric: Reports systems reviewed and no addt'l complaints, except as documented Endocrine Endocrinology: Reports systems reviewed and no addt'l complaints, except as documented Hematologic/Lymphatic Hematologic/Lymphatic: Reports systems reviewed and no addt'l complaints, except as documented Allergic/Immunologic Allergic/Immunologic: Reports systems reviewed and no addt'l complaints, except as documented Physical Exam Const General Appearance: cooperative, comfortable and well kempt Orientation / Consciousness: confused HEENT normocephalic Eyes PERRL Neck General: normal visual inspection Lymph Lymphatic: no lymphadenopathy noted Chest inspection of chest normal Resp normal respiratory effort, normal air movement and clear to auscultation bilaterally Cardio Rate: regular rate Rhythm: regular rhythm Heart Sounds: murmur GI normal to inspection, nondistended, normoactive bowel sounds no CVA tenderness Back/Spine no CVA tenderness Extremity normal to inspection Extremity Narrative: Right upper extremity- good pulse, slightly diminished bruit and thrill. Figure 8 suture was noted. Dressing was removed. Gauze and coban was left in place. No active bleeding noted currently. Skin no rashes or lesions noted Neuro moves all extremities Psych Speech: normal speech Mood & Affect: euphoric Thought Process: disorganized Results Lab / Micro Data Result Diagrams: 08/01/21 11:02 08/01/21 11:02 Assessment & Plan Assessment/Plan (1) Problem with dialysis access: QUALIFIERS: Encounter type: sequela Qualified Code(s): T82.898S - Other specified complication of vascular prosthetic devices, implants and grafts, sequela PLAN: Dr. Quarles will plan to perform a right upper extremity fistulogram with access at the right antecubital or right common femoral vein. Procedure details, risks and benefits have been explained. Patient and daughter have had the opportunity to ask and have questions answered. Patient verbally understands and agrees with the plan. Charges/Coding Visit Charges Office Visits / Consults: 99049 OV L3 Est
[2021-08-01 11:29] VITALS: BMI 22.7
[2021-08-01 11:31] LABS: Hematocrit 40.2 % (37-47); Hemoglobin 12.4 g/dL (12.0-15.0); Mean Corp Hgb Conc 30.8 g/dL (32-36); Mean Corpuscular Hgb 31.5 pg (27.0-32.0); Platelet Count 264 K/mm3 (150-450); RBC Distribution Width CV 14.6 % (11.6-14.6); RBC Distribution Width SD 54.4 fl (35.1-43.9); Red Blood Count 3.94 M/mm3 (4.2-5.4); White Blood Count 6.4 K/mm3 (4.4-11.0)
[2021-08-01 11:54] LABS: Anion Gap 5 (5-15); BUN 31 mg/dL (7-18); BUN/Creat Ratio 8.7 RATIO (10-20); Calcium,Total 9.9 mg/dL (8.5-10.1); Chloride 100 mmol/L (98-107); Creatinine, Serum 3.55 mg/dL (0.55-1.02); EST Glomerular Filtration Rate 13 mL/min (>60); Est Glom Filt Rate - Afr Amer 16 mL/min (>60); Glucose 92 mg/dL (74-106); Sodium Level 139 mmol/L (136-145)
--- NOTE | 2021-08-01 13:21 | OP.PCM_ITS ---
Problems Associated Problem List Diagnoses (1) Problem with dialysis access: Report of Operation Date of Procedure: 08/01/21 Pre-Operative Diagnosis: Severe bleeding right upper extremity arteriovenous hemodialysis fistula with documented central venous stenosis Post-Operative Diagnosis: Right subclavian 14 x 6 mm SMART stent with in-stent stenosis and edge stenosis Surgery/Procedure Performed:: Right transfemoral fistulogram with 12 x 4 [place] angioplasty central venous stenosis Description of Surgical Findings:: Timeout informed consent was obtained. 85-year-old female was taken to the special procedures lab placed upon the table. In aliquots throughout the procedure she was total of 1 mg Versed is intravenous sedation. The right upper extremity and right groin were sterilely prepped and draped. Under ultrasound guidance 2% lidocaine was instilled in the right groin a total 10 cc. Then a micropuncture needle was inserted into the right common femoral vein micropuncture wire and then a micropuncture sheath an 035 J-wire and then a 45 cm 7 [place] sheath was inserted. Using an 035 angled glide wire access was gained through the brachiocephalic stent and a 4 [place] glide cath was placed into the subclavian vein distal to the stent. Using Isovue contrast fistulogram was obtained. This demonstrated edge stenosis at the subclavian edge of the 14 x 6 SMART stent and mid in-stent stenosis 2 separate areas. A 12 x 4 [place] balloon was placed in both areas was carefully treated with balloon angioplasty. The edge stent stenosis had to be treated twice. The mid in-stent stenosis had to be carefully treated because of the length of the balloon. It was best treated with access balloon toward the subclavian side and lesser amounts of balloon at the site of the critical stenosis. Final fistulogram was obtained through the balloon demonstrating resolution of the edge and mid in-stent stenosis. The fistula itself had markedly decreased pulsatility and return of a palpable thrill. The balloon and sheath were removed. Gentle pressure was held for hemostasis. The patient tolerated the procedure well no apparent complication. The patient has a VBX stent within the right brachiocephalic which is further secured in place by a 14 x 6 SMART stent. There was edge stenosis in the distal portion of the stent within the subclavian vein and there was mid in-stent stenosis. Both of these resolved with angioplasty. There is otherwise good central venous flow. Francesco Quarles M.D., F.A.C.S. Surgeon: Francesco Quarles Type of Anesthesia: IV Sedation and Local
== END 2021-08-01 23:59 | disposition home or self-care (01) ==
LOC: CLSP 10:59
PROVIDERS: PCP Internal Medicine; Visit Provider Surgery
DX: T82.898A Other specified complication of vascular prosthetic devices, implants and grafts, initial encounter (principal); F03.90 Unspecified dementia, unspecified severity, without behavioral disturbance, psychotic disturbance, mood disturbance, and anxiety; E11.59 Type 2 diabetes mellitus with other circulatory complications; E11.22 Type 2 diabetes mellitus with diabetic chronic kidney disease; I12.0 Hypertensive chronic kidney disease with stage 5 chronic kidney disease or end stage renal disease; N18.5 Chronic kidney disease, stage 5; X58.XXXA Exposure to other specified factors, initial encounter; I87.2 Venous insufficiency (chronic) (peripheral); E78.00 Pure hypercholesterolemia, unspecified; Z79.84 Long term (current) use of oral hypoglycemic drugs; Z79.899 Other long term (current) drug therapy
CPT/HCPCS: 36415; 36902; 76937; 80048; 85027; 93005; 99152; 99153; Q9967; C1725; C1769; C1894

== ENCOUNTER 2021-12-10 01:14 | Inpatient (IN) | payer MEDICARE, MEDICAID, SELFPAY ==
[2021-12-10] VITALS (56 sets, daily range): BP systolic 68–139; BP diastolic 39–119; PULSE 53–140; RESP 15–24; TEMP 36.2–36.7; O2SAT 88–118; BMI 21.1
--- NOTE | 2021-12-10 00:59 | HP.PCM_ITS ---
HPI - General General Date of Admission: 12/10/21 Date of Service: 12/10/21 Chief Complaint: C. difficile colitis, end-stage renal disease dialysis dependent HPI Narrative CARINE HODGE, is a 86 F who presents to the emergency room from dialysis where she had emesis x2. She became dizzy, confused after approximately 2 hours of dialysis. Patient has been treated for C. difficile with oral vancomycin 125 mg 4 times daily since last and has had improvement in her symptoms and has had about 2 bowel movements that are still loose daily. She has a history of dementia and her daughter is power of mergers and acquisitions attorney is here to give history and states that the patient wishes to be DNR Comfort [facility] at this time. She will be admitted to progressive care unit and managed for C. difficile colitis and consult nephrology for anticipated need for dialysis. [facility] Medical History (Updated 12/10/21 @ 01:[address] Braden Green MD) Chronic renal failure, stage 5 Diabetes Heart disease HTN (hypertension) hypercholesterolemia Problem with dialysis access Renal failure Viabahn Stent to Right Subclavian Home Medications carvedilol 3.125 mg tablet 3.125 mg PO BID BP 03/30/18 [History Last Taken 05/09/19 06:00] ergocalciferol (vitamin D2) 1,250 mcg (50,000 unit) capsule 50,000 unit PO .QOWEEK 03/30/18 [History Last Taken Unknown] nateglinide 60 mg tablet 60 mg PO TID DIABETES 03/30/18 [History Last Taken Unknown] paroxetine HCl 40 mg tablet (Paxil) 40 mg PO DAILY 03/30/18 [History Last Taken Unknown] sevelamer carbonate 800 mg tablet 800 mg PO QPC 03/30/18 [History Last Taken Unknown] Cyanocobalamin (Vitamin B-12) [Cyanocobalamin Injection] 1,000 mcg IM QMONTH 04/06/18 [History Last Taken Unknown] rosuvastatin 40 mg tablet 40 mg PO QHS CHOLESTEROL 04/06/18 [History Last Taken Unknown] levothyroxine 100 mcg capsule 112 mcg PO DAILY THYROID 04/21/19 [History Last Taken 05/09/19 06:00] vitamin B complex-vitamin C-folic acid 0.8 mg tablet 0.8 mg PO DAILY 05/03/19 [History Last Taken Unknown] Allergy/AdvReac Type Severity Reaction Status Date / Time Penicillins Allergy Mild Unknown Verified 08/01/21 10:52 Family History Brother Cancer Heart disease Mother Breast cancer Father CVA (cerebral vascular accident) Surgical History dialysis cath placement S/P appendectomy S/P hysterectomy s/p right a-v fistula (~04/12/18) Social History (Updated 12/27/19 @ 15:[address] Francesco Quarles MD) Smoking Status: Never smoker alcohol intake: never substance use type: does not use ROS Constitutional Constitutional: Reports malaise and weakness; Denies chills or fever(s) Eyes Eyes: Denies change in vision ENT HEENT: Denies abnormal hearing Cardiovascular Cardiovascular: Denies chest pain Respiratory/Chest Respiratory/Chest: Denies shortness of breath at rest Gastrointestinal Gastrointestinal: Reports diarrhea, nausea and vomiting Genitourinary Genitourinary: Denies dysuria Musculoskeletal Musculoskeletal: Denies back pain Integumentary Integumentary: Denies dry skin Neurologic Neurologic: Reports abnormal gait Psychiatric Psychiatric: Reports anxiety Physical Exam Const Orientation / Consciousness: confused HEENT normocephalic and head/scalp atraumatic Eyes PERRL Neck supple Resp normal respiratory effort and normal air movement Cardio regular rate, regular rhythm, S1 normal heart sound and S2 normal heart sound GI soft to palpation and non-tender Extremity no clubbing, cyanosis or edema Skin General Skin Exam: no breakdown Neuro no focal motor deficits and no sensory deficits noted Psych Attitude: agitated Mood & Affect: anxious Assessment & Plan Assessment/Plan (1) Chronic renal failure, stage 5: (2) Clostridioides difficile diarrhea: (3) Diabetes: (4) HTN (hypertension): (5) Heart disease: (6) Elevated troponin: PLAN: Plan 1. C. difficile infection?admit patient to progressive care unit, placed on isolation continue vancomycin 1.5 mg p.o. 4 times daily 2. Elevated troponin?cycle cardiac markers patient is not denies any chest pain at present time and it is felt the elevation is due to her renal disease 3. Hypertension?continue home medication 4. Diabetes?continue routine home medications 5. End-stage renal disease?consult nephrology for anticipated need for dialysis 6. DVT prophylaxis?SCDs In talking with patient's power of mergers and acquisitions attorney who is her daughter she wishes patient to be DNR [facility] Charges/Coding Visit Charges Inpatient E&M: 78076 Init Hosp L3
[2021-12-10 01:56] LABS: Absolute Lymphocyte Count 1.09 X10^3/uL (0.83-4.51); Absolute Neutrophil Count 14.7 X10^3/uL (2.0-7.7); Basophil# 0.07 X10^3/uL; Basophil% 0.4 % (0-1); Hematocrit 25.7 % (37-47); Hemoglobin 7.9 g/dL (12.0-15.0); Lymphocyte # 1.09 X10^3/ul (0.83-4.51); Lymphocyte % 6.1 % (19-41); Mean Corp Hgb Conc 30.7 g/dL (32-36); Mean Corpuscular Hgb 35.3 pg (27.0-32.0); Mean Corpuscular Volume 114.7 fL (81-99); Mean Platelet Vol. 10.2 fl (6.2-12.0); Monocyte# 1.88 X10^3/uL; Monocyte% 10.5 % (0-10); NRBC Flagged by Analyzer 0 % (0-5); Neutrophil # 14.71 X10^3/uL (2.7-7.7); Neutrophil % 82.2 % (47-70); POSITIVE DIFFERENTIAL YES; Platelet Count 325 K/mm3 (150-450); RBC Distribution Width CV 14.9 % (11.6-14.6); RBC Distribution Width SD 61.6 fl (35.1-43.9); Red Blood Count 2.24 M/mm3 (4.2-5.4); White Blood Count 17.9 K/mm3 (4.4-11.0)
[2021-12-10 01:58] LABS: Differential Indicated SCAN CRITERIA MET
[2021-12-10] MEDS: 0.9% Normal Saline 1,000 ML 75 ML IV (02:01)
[2021-12-10 02:14] LABS: ALB/GLOB Ratio 0.4 RATIO (0.9-2.4); AST(SGOT) 22 U/L (15-37); Alanine Aminotransfer ALT/SGPT 22 U/L (13-56); Albumin, Serum 1.8 g/dL (3.2-5.0); Alkaline Phosphatase 74 U/L (45-117); Anion Gap 6 (5-15); BUN 36 mg/dL (7-18); BUN/Creat Ratio 8.2 RATIO (10-20); Chloride 104 mmol/L (98-107); Creatinine, Serum 4.41 mg/dL (0.55-1.02); EST Glomerular Filtration Rate 10 mL/min (>60); Est Glom Filt Rate - Afr Amer 12 mL/min (>60); Estimated Creatinine Clearance 7.04 ml/min; Globulin 4.4 g/dL (2.2-4.2); Glucose 84 mg/dL (74-106); Magnesium 2.4 mg/dL (1.6-2.6); Potassium 4.2 mmol/L (3.5-5.1); Protein, Total 6.2 g/dL (6.4-8.2); Sodium Level 138 mmol/L (136-145)
[2021-12-10 02:21] LABS: Macrocytosis 3+
[2021-12-10 02:22] LABS: Anisocytosis 1+
[2021-12-10 02:28] LABS: Troponin-I HS 151 pg/mL (3.0-54.0)
--- NOTE | 2021-12-10 02:47 | EKG12_ITS ---
Test Reason : Rythm change Blood Pressure : / mmHG Vent. Rate : 121 BPM Atrial Rate : 000 BPM P-R Int : 000 ms QRS Dur : 104 ms QT Int : 304 ms P-R-T Axes : 000 037 043 degrees QTc Int : 431 ms Atrial fibrillation with rapid ventricular response Septal infarct , age undetermined Possible Lateral infarct , age undetermined Abnormal ECG When compared with ECG of 01-AUG-2021 11:26, MANUAL COMPARISON REQUIRED, DATA IS UNCONFIRMED Confirmed by CARYN RIZVI, SIN ([id number]), industrial editor NYA THAYER ([id number]) on 12/11/2021 12:49:25 PM Referred By: Norma Confirmed By:SIN RUBIN MD
--- NOTE | 2021-12-10 03:42 | NURSING ---
Patient sp02 88% on RA applied oxygen 2L spo2 100%.
--- NOTE | 2021-12-10 04:10 | NURSING ---
See VSA. Rapid response called. Dr. Huizar responded to patient's bedside. Verbal orders taken and read back during rapid response. Will continue to monitor patient here on PCU.
[2021-12-10] MEDS: 0.9% Normal Saline 1,000 ML 125 ML IV (04:18)
[2021-12-10] MEDS: Vancomycin 125 MG/5 ML Susp PO.SYRINGE PO ×4 (06:00→23:51)
[2021-12-10] MEDS: 0.9% Normal Saline 1,000 ML 999 ML IV (07:36)
--- NOTE | 2021-12-10 08:01 | ECHOD_ITS ---
Reason For Study: ATRIA FIB-FLUTTER Procedure This was a 2D Doppler, Color Flow transthoracic echocardiogram. The exam was of adequate technical quality. Exam performed in department. Left Ventricle Normal LV size. Left ventricular systolic function is normal. The estimated ejection fraction is 55 %. Unable to assess diastolic dysfunction. No regional wall motion abnormalities noted. Right Ventricle Normal RV size. Normal systolic function. Atria The left atrium is mildly enlarged. Normal right atrium. No doppler evidence for ASD. Mitral Valve There is moderate mitral annular calcification. Extension of the mitral annular calcification on the base the posterior mitral valve leaflet. Anterior leaflet diffuse mitral valve thickening. Mild focal mitral valve calcification of the anterior leaflet. Moderately severe (3+) eccentric mitral valve insufficiency. Tricuspid Valve Normal tricuspid valve. Moderately severe (3+) tricuspid valve insufficiency. Right ventricular systolic pressure estimated to be 97 mmHg. Severe pulmonary hypertension. Aortic Valve Trisinus/trileaflet aortic valve. Mild diffuse aortic valve thickening. Mild focal aortic valve calcification. Moderate aortic stenosis. Pulmonic Valve The pulmonic valve is not well visualized. Trivial pulmonic valve insufficiency. Great Vessels Normal sized aortic root. Pericardium/Pleural Small to moderate pericardial effusion. There are no echocardiographic indications of cardiac tamponade. MMode/2D Measurements & Calculations LVIDd: 3.9 cm IVSd: 1.2 cm LVOT diam: 1.9 cm LVIDs: 2.9 cm LVPWd: 1.6 cm LVOT area: 2.8 cm2 RVDd: 3.9 cm FS: 26.6 % Ao root diam: 3.2 cm LVAd ap4: 15.7 cm2 SV(MOD-sp4): 14.4 ml LVLd ap4: 5.8 cm EDV(MOD-sp4): 36.0 ml EDV(sp4-el): 35.9 ml LVAs ap4: 11.4 cm2 LVLs ap4: 5.2 cm ESV(MOD-sp4): 21.5 ml ESV(sp4-el): 21.3 ml EF(MOD-sp4): 40.1 % EF(sp4-el): 40.7 % SV(sp4-el): 14.6 ml LA dimension(2D): 4.2 cm RA A4 area: 14.6 cm2 Doppler Measurements & Calculations MV E max joe: 207.5 cm/sec MV V2 max: 216.1 cm/sec Ao V2 max: 245.9 cm/sec MV max P.7 mmHg Ao max P.7 mmHg MV V2 mean: 138.1 cm/sec Ao V2 mean: 178.0 cm/sec MV mean P.1 mmHg Ao mean P.4 mmHg MV V2 VTI: 32.9 cm Ao V2 VTI: 40.9 cm MVA(VTI): 1.4 cm2 ISIAH(I,D): 1.1 cm2 ISIAH(V,D): 0.95 cm2 AI max joe: 347.9 cm/sec LV V1 max: 82.5 cm/sec MR max joe: 580.4 cm/sec AI max P.5 mmHg LV V1 max P.7 mmHg MR max P.1 mmHg AI dec slope: 436.9 cm/sec2 LV V1 mean P.6 mmHg AI P1/2t: 233.2 msec LV V1 mean: 61.1 cm/sec LV V1 VTI: 16.5 cm SV(LVOT): 46.9 ml PA V2 max: 80.7 cm/sec TR max joe: 453.0 cm/sec TR max P.1 mmHg ECHO/Echo Complete Interpretation Summary Left ventricular systolic function is normal. The estimated ejection fraction is 55 %. The left atrium is mildly enlarged. There is moderate mitral annular calcification. Extension of the mitral annular calcification on the base the posterior mitral valve leaflet. Anterior leaflet diffuse mitral valve thickening. Mild focal mitral valve calcification of the anterior leaflet. Moderately severe (3+) eccentric mitral valve insufficiency. Moderately severe (3+) tricuspid valve insufficiency. Moderate aortic stenosis. Trivial pulmonic valve insufficiency. Small to moderate pericardial effusion. There are no echocardiographic indications of cardiac tamponade. Right ventricular systolic pressure estimated to be 97 mmHg. Severe pulmonary hypertension. Unable to assess diastolic dysfunction. Ordering Physician: Salma Barrett Performed By: Bela Ruiz RCS
[2021-12-10 08:20] LABS: Bedside Glucose 83 mg/dL (74-106)
--- NOTE | 2021-12-10 08:39 | NURSING ---
This RN called and gave report to DULSEROlamide.
--- NOTE | 2021-12-10 09:01 | CON.PCM.CA_ITS ---
Assessment & Plan Assessment/Plan (1) Elevated troponin: PLAN: The patient has an elevated high-sensitivity troponin I level. This may b e a type II event. The etiology may be multifactorial. There are concerns this could be related to her underlying chronic renal insufficiency as she is on chronic hemodialysis. There are concerns this could be related to an underlying infectious disease issue with respect to her C. difficile toxin and concerns of a sepsis syndrome. There are concerns this could be related to her underlying heart disease which is unclear with respect to the exact etiology based upon information from the patient and her daughter. There are concerns as to whether or not her atrial fibrillation may be exace rbating her underlying conditions. At the present time she does not have any acute changes on her ECG. She has hypotensive which may also be multifactorial between concerns of her underlying noncardiac and cardiac issues. Thus at the moment she is going to be transferred to the ICU for further ev aluation and care. She will have follow-up of her cardiac enzyme levels and ECGs. An echocardiogram has been requested to evaluate her ventricular size, wall motion, and systolic function. In the interim she has received IV volume support. She may also need IV vasopressor support. (2) Atrial fibrillation: PLAN: She was noted to be in sinus rhythm originally. She subsequently had alteration in atrial fibrillation with RVR. Her atrial fibrillation may be multifactorial in etiology. This can be based upon a combination of her age, history of hypertension, history of heart disease , as well as being exacerbated by her underlying infectious disease issues, etc. At the moment she will continue to be monitored. She will receive an attempt at rate limiting therapy with IV digitalis as she may not tolerate other agents such as beta-blockers or calcium channel a ntagonist based upon her low blood pressure. She can also receive an attempt at assisting with rate control and potentially regaining sinus rhythm with IV amiodarone. Depending upon her response and overall clinical condition she may or may not need to be considered for synchronized biphasic DC cardioversion. However, if her atrial dysrhythmia is being driven by her noncardiac issues including underlying infectious disease issues, it may be challenging to regain and maintain sinus rhythm until her noncardiac issues come under better control. She will also continue noninvasive cardiac evaluation at this time. (3) Hypotension: PLAN: Her blood pressure has been low. She has been receiving IV fluids. She will continue fluid resuscitation. She may also need IV vasopressor support. She will continue her cardiac evaluation as noted. Pulmonology/critical care medicine has also been consulted to assist in evaluating and caring for the patient. (4) Clostridioides difficile diarrhea: PLAN: The patient will need to continue her C. difficile precautions. She will continue antibiotic therapy as deemed appropriate. (5) Chronic renal failure, stage 5: PLAN: The patient has a long standing history of chronic renal failure. The etiology is unclear. She will need to continue to be followed by nephrology. (6) Hemodialysis status: PLAN: The patient was reported as being unable to complete her hemodialysis yesterday based upon concerns of her noncardiac issues. Nephrology will be needed to assist in her ongoing renal function, etc. Addt'l Comments The patient's case was discussed and reviewed with the patient, her daughter, and Dr. Barrett. This note was generated using a voice recognition system and there may be incorrect words, spelling or punctuation that were not noted when reviewing the office note prior to saving. HPI Consult Data Date of Consult: 12/10/21 HPI Narrative HPI Narrative: CARINE HODGE, is a 86 year old white female who presents for cardiovascular consultation based upon concerns of the development of atrial fibrillation with RVR superimposed upon ongoing hypotension, C. difficile colitis, end-stage renal disease on chronic hemodialysis, hyperlipidemia, hypertension, and a previous cardiac history-Per the patient's daughter-of a leaky valve and some form of intermittent elevated heart rate-all superimposed upon a diagnosis of dementia. According to the patient's daughter, the patient had been living alone caring for herself until recently. Recently she is demonstrated a decline in her overall mental status, has developed C. difficile colitis, and has been undergoing continued end-stage renal disease/chronic hemodialysis. The patient was unable to complete dialysis yesterday based upon a combination of issues potentially related to diminished volume status and hypotension. The patient's daughter requested that she be transferred to the [facility] for further evaluation and care as it is closer to her home. She states she has received previous care at [facility] in [place], [place] and cardiovascular care there as well as at [facility] in [place], [place]. According to the patient she denies any ongoing chest discomfort or difficulty breathing. She does not appear to sense her elevated heart rate. There has been no report of loss of consciousness. There has been no report of lower extremity peripheral pitting edema. The patient was brought to the [facility] and placed in the PCU. She was noted to be in sinus rhythm with an original ECG demonstrating sinus rhythm with concerns of LVH and a septal AK of indeterminate age cannot be excluded. She was noted to be hypotensive and was requiring IV fluid supplements. She was subsequently noted to develop atrial fibrillation with a rapid ventricular response. A follow-up ECG demonstrated atrial fibrillation with a rapid ventricular response with a continued septal AK pattern of indeterminate age. She continued to require IV fluid boluses. An CHECK SCALER was called based upon the above. The patient's case was discussed between the [facility] staff and the patient's daughter regarding her multiple medical issues and a previous request to be a DNR CC patient. After discussion the patient had a change in her DNR status to being a full code . Thus plans were then made to have the patient transferred to the ICU for further evaluation care with consults to cardiology and pulmonology/critical care medicine. As part of the patient's evaluation she has had cardiac enzymes performed. Her high-sensitivity troponin I level was elevated. Repeat levels are pending. The aforementioned ECGs are noted. There are no previous cardiovascular records available for review at this time. Dr. Barrett of the [facility] hospital staff has stated she has requested the outside cardiovascular records for continuity of care. [facility] Medical History (Updated 12/10/21 @ 11:[address] Braden Armas MD) Chronic renal failure, stage 5 Diabetes Heart disease HTN (hypertension) hypercholesterolemia Problem with dialysis access Renal failure Viabahn Stent to Right Subclavian Home Medications carvedilol 3.125 mg tablet 3.125 mg PO BID BP 03/30/18 [History Last Taken 12/09/21] ergocalciferol (vitamin D2) 1,250 mcg (50,000 unit) capsule 50,000 unit PO .QOWEEK Check with primary doctor 03/30/18 [History Last Taken 12/09/21] nateglinide 60 mg tablet 60 mg PO TID DIABETES 03/30/18 [History Last Taken 12/09/21] paroxetine HCl 40 mg tablet (Paxil) 40 mg PO DAILY Check with primary doctor 03/30/18 [History Last Taken 12/09/21] sevelamer carbonate 800 mg tablet 800 mg PO QPC Check with primary doctor 03/30/18 [History Last Taken 12/09/21] Cyanocobalamin (Vitamin B-12) [Cyanocobalamin Injection] 1,000 mcg IM QMONTH Check with primary doctor 04/06/18 [History Last Taken 12/09/21] rosuvastatin 40 mg tablet 40 mg PO QHS CHOLESTEROL 04/06/18 [History Last Taken 12/09/21] vitamin B complex-vitamin C-folic acid 0.8 mg tablet 0.8 mg PO DAILY 05/03/19 [History Last Taken Unknown] levothyroxine 112 mcg tablet (Synthroid) 112 mcg PO DAILY THYROID 12/10/21 [History Last Taken 12/09/21] Allergy/AdvReac Type Severity Reaction Status Date / Time Penicillins Allergy Mild Unknown Verified 08/01/21 10:52 Family History Brother Cancer Heart disease Mother Breast cancer Father CVA (cerebral vascular accident) Surgical History dialysis cath placement S/P appendectomy S/P hysterectomy s/p right a-v fistula (~04/12/18) Social History (Updated 12/27/19 @ 15:[address] Francesco Quarles MD) Smoking Status: Never smoker alcohol intake: never substance use type: does not use ROS Constitutional Constitutional: Reports as per HPI Eyes Eyes: Reports as per HPI ENT HEENT: Reports as per HPI Cardiovascular Cardiovascular: Reports as per HPI Respiratory/Chest Respiratory/Chest: Reports as per HPI Gastrointestinal Gastrointestinal: Reports as per HPI Genitourinary Genitourinary: Reports as per HPI Musculoskeletal Musculoskeletal: Reports as per HPI Integumentary Integumentary: Reports as per HPI Neurologic Neurologic: Reports as per HPI Psychiatric Psychiatric: Reports as per HPI Physical Exam Const no apparent distress Orientation / Consciousness: awake HEENT normocephalic, head/scalp atraumatic and hearing grossly normal bilaterally Eyes PERRL, EOMs intact bilaterally, conjunctivae normal and no scleral icterus Neck full ROM, supple and no JVD Carotids: normal carotid upstroke Resp normal respiratory effort and clear to auscultation bilaterally Cardio Rate: tachycardic Rhythm: abnormal rhythm irregularly irregular Heart Sounds: S1 normal and S2 normal GI normal to inspection, nondistended, normoactive bowel sounds Extremity no pedal edema Skin no rashes or lesions noted Risk Stratification Risk Stratification Applicable: Yes Age >/= 65: Yes >/= 3 CAD Risk Factors (HTN, HLD, DM, family hx of CAD, or current smoker): Yes Aspirin Use in the Past 7 Days: No Severe Angina (>/= episodes in 24 hours): No EKG ST Changes >/= 0.5mm: No Positive Cardiac Marker: Yes BONY Risk Stratification Score: 3 BONY % Risk: 13% Risk Procedure Criteria Type of Procedure Procedure Type: Elective Elective Risks - COVID COVID Risk Discussion: The surgeon/proceduralist and patient have discussed in detail the risk of exposure to and/or potential harm posed by the COVID-19 virus with having a surgery/procedure at this time versus the risk of delaying the surgery/procedure. It is not possible to know either the risk of delaying the surgery or procedure or chance of getting an infection with perfect accuracy, but a joint decision was made between the patient and the surgeon/proceduralist to proceed at this time with the scheduled surgery/procedure as indicated on the consent form. Objective Data Vital Signs: Vital Signs Temp Pulse Resp BP Pulse Ox O2 Del Method O2 Flow Rate 97.1 F L 112 H 18 96/68 118 Nasal Cannula 2 12/10/21 08:00 12/10/21 08:00 12/10/21 08:00 12/10/21 08:00 12/10/21 08:00 12/10/21 08:00 12/10/21 08:00 Oxygen Flow Rate (L/min) 2 Oxygen Delivery Method Nasal Cannula Weight: 111 lb 12.39 oz Body Mass Index (BMI) 21.1 Intake & Output: Intake and Output for Last 24 Hours 12/08/21 12/09/21 12/10/21 23:59 23:59 23:59 Intake Total 2427.5 / 2427.5 Balance 2427.5 / 2427.5 Lab / Micro Data Result Diagrams: 12/10/21 01:48 12/10/21 01:48 Labs: Laboratory Results - last 24 hr 12/10/21 01:48: Troponin I High Sens 151 H* 12/10/21 01:48: WBC 17.9 H, RBC 2.24 L, Hgb 7.9 L, Hct 25.7 L, MCV 114.7 H, MCH 35.3 H, MCHC 30.7 L, RDW Std Deviation 61.6 H, RDW Coeff of Keri 14.9 H, Plt Count 325, MPV 10.2, Immature Gran % (Auto) 0.800, Neut % (Auto) 82.2 H, Lymph % (Auto) 6.1 L, [place] % (Auto) 10.5 H, Eos % (Auto) 0.0, Baso % (Auto) 0.4, Absolute Neuts (auto) 14.7 H, Absolute Lymphs (auto) 1.09, Nucleated RBC % 0, Diff Path Review September, Anisocytosis 1+, Macrocytosis 3+ 12/10/21 01:48: Sodium 138, Potassium 4.2, Chloride 104, Carbon Dioxide 28.0, Anion Gap 6, BUN 36 H, Creatinine 4.41 H, Estim Creat Clear Calc 7.04, Est GFR (MDRD) Af Amer 12 L, Est GFR (MDRD) Non-Af 10 L, BUN/Creatinine Ratio 8.2 L, Glucose 84, Calcium 9.0, Magnesium 2.4, Total Bilirubin 1.00, AST 22, ALT 22, Alkaline Phosphatase 74, Total Protein 6.2 L, Albumin 1.8 L, Globulin 4.4 H, Albumin/Globulin Ratio 0.4 L 12/10/21 07:45: POC Glucose 83 Cardiology Labs/Tests 12/10/21 01:48: WBC 17.9 H, RBC 2.24 L, Hgb 7.9 L, Hct 25.7 L, MCV 114.7 H, MCH 35.3 H, MCHC 30.7 L, Plt Count 325, MPV 10.2, Immature Gran % (Auto) 0.800, Neut % (Auto) 82.2 H, Lymph % (Auto) 6.1 L, Lake % (Auto) 10.5 H, Eos % (Auto) 0.0, Baso % (Auto) 0.4, Absolute Neuts (auto) 14.7 H, Nucleated RBC % 0 12/10/21 01:48: Sodium 138, Potassium 4.2, Chloride 104, Carbon Dioxide 28.0, Anion Gap 6, BUN 36 H, Creatinine 4.41 H, Est GFR (MDRD) Af Amer 12 L, Est GFR (MDRD) Non-Af 10 L, BUN/Creatinine Ratio 8.2 L, Glucose 84, Calcium 9.0, Magnesium 2.4, Total Bilirubin 1.00 Rhythm: Atrial fibrillation EKG: As noted above
[2021-12-10] MEDS: Digoxin 250 MCG/ML Ampul 500 MCG IV (09:39)
[2021-12-10] MEDS: 0.9% Saline Lock 10 ML Syringe IV ×3 (09:39→21:22)
[2021-12-10 09:43] LABS: Troponin-I HS 103 pg/mL (3.0-54.0)
[2021-12-10] MEDS: Amiodarone 360 MG in Dextrose 5% Viaflo Bag 192.8 ML 33.3 MG CONT INF (09:44)
--- NOTE | 2021-12-10 09:47 | EX.PCM.CONCC ---
Documented by User: Dr. Lambert Pelayo, 12/10/21 14:50 Assessment & Plan Assessment/Plan (1) Paroxysmal atrial fibrillation with RVR: (2) ESRD (end stage renal disease) on dialysis: (3) Hypotension: PLAN: Plan RECOMMENDATIONS: 1. Stop continuous IV fluids. 2. Start Levophed to maintain a mean arterial pressure at or above 65 mmHg. 3. Obtain echocardiogram. 4. Continue amiodarone as ordered. 5. Check TSH and free T4. 6. Obtain nephrology consultation to assist with hemodialysis needs. 7. Send type and screen. IMPRESSIONS: 1. Hypovolemic versus distributive shock Likely secondary to GI losses in the setting of C. difficile colitis. Fluid management has been conservative in light of her hypoalbuminemia and end-stage renal disease. In light of her ongoing hypotension, recommend initiation of vasopressor support to maintain a mean arterial pressure at or above 65 mmHg. Continue p.o. vancomycin to address previously established diagnosis of C. difficile colitis. Obtain blood cultures as well along with plain film chest x-ray. The patient's atrial fibrillation with RVR is also likely contributing to her current hemodynamic status. Cardiology is following to assist with medical management. 2. Anemia of unclear etiology The patient presented to the hospital with a hemoglobin of 7.9 g/dL. Plan to send type and screen and transfuse if hemoglobin drops below 7 g/dL. The patient will be started on twice daily PPI therapy as well. Check stool for occult blood. 3. Troponin elevation/atrial fibrillation Likely secondary to demand ischemia. Cardiology is currently following. Echocardiogram is pending. Continue amiodarone as ordered. 4. End-stage renal disease on hemodialysis Nephrology consultation is pending to assist with ongoing hemodialysis needs. 5. Advanced age/dementia/hypothyroidism/hyperlipidemia Complicates care, management, recovery and prognosis. Continue home medications as indicated. Check TSH and free T4. TIME: 35 minutes of critical care time, independent of procedures, was spent addressing the patient's shock, anemia, troponin elevation, atrial fibrillation, review of all data and collaboration with the care team. HPI Consult Data Date of Consult: 12/10/21 HPI Narrative HPI Narrative: The patient is an 86-year-old female, with a history as outlined below, who presented as a transfer of care due to altered mentation and hypotension. The patient has been under treatment for C. difficile colitis with oral vancomycin. She has end-stage renal disease on hemodialysis. On presentation to the hospital, the patient was noted to be afebrile but was hypotensive with a blood pressure of 88/39 mmHg. Throughout the night, the patient became progressively tachycardic with persistent hypotension. She was initially treated by the overnight hospitalist with IV fluids, without any improvement in her hemodynamic status. During the senior solutions engineer hours of December 10, a rapid response team was called due to hemodynamic instability and continued altered mentation. That provider ordered hetastarch to be administered. Again, this did not correct the patient's hemodynamic instability. Ultimately, the patient had to be transferred to the medical intensive care unit to be started on vasopressor support. In addition to the aforementioned, the patient developed atrial fibrillation with RVR. Initial laboratory evaluation revealed an elevated white blood cell count to 18,000. Hemoglobin was noted to be 7.9 g/dL, down from 12.4 g/dL in July 2021. Chemistry profile was notable for a BUN of 36 and creatinine of 4.41. Total bilirubin was normal at 1.0. Troponins were increased at 151. [facility] Medical History (Updated 12/10/21 @ 14:[address] Salma Barrett MD) Chronic renal failure, stage 5 Diabetes Heart disease HTN (hypertension) hypercholesterolemia Problem with dialysis access Renal failure Viabahn Stent to Right Subclavian Home Medications carvedilol 3.125 mg tablet 3.125 mg PO BID BP 03/30/18 [History Last Taken 12/09/21] ergocalciferol (vitamin D2) 1,250 mcg (50,000 unit) capsule 50,000 unit PO .QOWEEK Check with primary doctor 03/30/18 [History Last Taken 12/09/21] nateglinide 60 mg tablet 60 mg PO TID DIABETES 03/30/18 [History Last Taken 12/09/21] paroxetine HCl 40 mg tablet (Paxil) 40 mg PO DAILY Check with primary doctor 03/30/18 [History Last Taken 12/09/21] sevelamer carbonate 800 mg tablet 800 mg PO QPC Check with primary doctor 03/30/18 [History Last Taken 12/09/21] Cyanocobalamin (Vitamin B-12) [Cyanocobalamin Injection] 1,000 mcg IM QMONTH Check with primary doctor 04/06/18 [History Last Taken 12/09/21] rosuvastatin 40 mg tablet 40 mg PO QHS CHOLESTEROL 04/06/18 [History Last Taken 12/09/21] vitamin B complex-vitamin C-folic acid 0.8 mg tablet 0.8 mg PO DAILY 05/03/19 [History Last Taken Unknown] levothyroxine 112 mcg tablet (Synthroid) 112 mcg PO DAILY THYROID 12/10/21 [History Last Taken 12/09/21] Allergy/AdvReac Type Severity Reaction Status Date / Time Penicillins Allergy Mild Unknown Verified 08/01/21 10:52 Family History Brother Cancer Heart disease Mother Breast cancer Father CVA (cerebral vascular accident) Surgical History dialysis cath placement S/P appendectomy S/P hysterectomy s/p right a-v fistula (~04/12/18) Social History (Updated 12/27/19 @ 15:[address] Francesco Quarles MD) Smoking Status: Never smoker alcohol intake: never substance use type: does not use ROS Review of Systems ROS Unobtainable: due to mental status Physical Exam Const alert and no apparent distress General Appearance: cooperative Orientation / Consciousness: confused and disoriented HEENT normocephalic and head/scalp atraumatic Eyes PERRL and EOMs intact bilaterally Neck supple General: trachea midline Chest inspection of chest normal Resp normal respiratory effort Auscultation: Negative for rales, rhonchi or wheezes Cardio S1 normal heart sound and S2 normal heart sound Rate: tachycardic Rhythm: abnormal rhythm GI normal to inspection, nondistended, normoactive bowel sounds Extremity no clubbing, cyanosis or edema Skin no rashes or lesions noted Neuro no focal motor deficits Psych cooperative Lab / Micro Data Result Diagrams: 12/10/21 01:48 12/10/21 01:48 Labs: Laboratory Results - last 24 hr 12/10/21 01:48: Troponin I High Sens 151 H* 12/10/21 01:48: WBC 17.9 H, RBC 2.24 L, Hgb 7.9 L, Hct 25.7 L, MCV 114.7 H, MCH 35.3 H, MCHC 30.7 L, RDW Std Deviation 61.6 H, RDW Coeff of Keri 14.9 H, Plt Count 325, MPV 10.2, Immature Gran % (Auto) 0.800, Neut % (Auto) 82.2 H, Lymph % (Auto) 6.1 L, [place] % (Auto) 10.5 H, Eos % (Auto) 0.0, Baso % (Auto) 0.4, Absolute Neuts (auto) 14.7 H, Absolute Lymphs (auto) 1.09, Nucleated RBC % 0, Diff Path Review September, Anisocytosis 1+, Macrocytosis 3+ 12/10/21 01:48: Sodium 138, Potassium 4.2, Chloride 104, Carbon Dioxide 28.0, Anion Gap 6, BUN 36 H, Creatinine 4.41 H, Estim Creat Clear Calc 7.04, Est GFR (MDRD) Af Amer 12 L, Est GFR (MDRD) Non-Af 10 L, BUN/Creatinine Ratio 8.2 L, Glucose 84, Calcium 9.0, Magnesium 2.4, Total Bilirubin 1.00, AST 22, ALT 22, Alkaline Phosphatase 74, Total Protein 6.2 L, Albumin 1.8 L, Globulin 4.4 H, Albumin/Globulin Ratio 0.4 L 12/10/21 07:45: POC Glucose 83 12/10/21 08:19: Troponin I High Sens 103 H Charges/Coding Procedures Hospitalists Procedures: 52748 Critial Care 1st Hr Documented by User: Dr. Braden Armas MD 12/10/21 10:22 Assessment & Plan Assessment/Plan (1) Paroxysmal atrial fibrillation with RVR: (2) ESRD (end stage renal disease) on dialysis: (3) Hypotension: HPI Consult Data Date of Consult: 12/10/21 [facility] Medical History (Updated 12/10/21 @ 14:[address] Salma Barrett MD) Chronic renal failure, stage 5 Diabetes Heart disease HTN (hypertension) hypercholesterolemia Problem with dialysis access Renal failure Viabahn Stent to Right Subclavian Home Medications carvedilol 3.125 mg tablet 3.125 mg PO BID BP 03/30/18 [History Last Taken 12/09/21] ergocalciferol (vitamin D2) 1,250 mcg (50,000 unit) capsule 50,000 unit PO .QOWEEK Check with primary doctor 03/30/18 [History Last Taken 12/09/21] nateglinide 60 mg tablet 60 mg PO TID DIABETES 03/30/18 [History Last Taken 12/09/21] paroxetine HCl 40 mg tablet (Paxil) 40 mg PO DAILY Check with primary doctor 03/30/18 [History Last Taken 12/09/21] sevelamer carbonate 800 mg tablet 800 mg PO QPC Check with primary doctor 03/30/18 [History Last Taken 12/09/21] Cyanocobalamin (Vitamin B-12) [Cyanocobalamin Injection] 1,000 mcg IM QMONTH Check with primary doctor 04/06/18 [History Last Taken 12/09/21] rosuvastatin 40 mg tablet 40 mg PO QHS CHOLESTEROL 04/06/18 [History Last Taken 12/09/21] vitamin B complex-vitamin C-folic acid 0.8 mg tablet 0.8 mg PO DAILY 05/03/19 [History Last Taken Unknown] levothyroxine 112 mcg tablet (Synthroid) 112 mcg PO DAILY THYROID 12/10/21 [History Last Taken 12/09/21] Allergy/AdvReac Type Severity Reaction Status Date / Time Penicillins Allergy Mild Unknown Verified 08/01/21 10:52 Family History Brother Cancer Heart disease Mother Breast cancer Father CVA (cerebral vascular accident) Surgical History dialysis cath placement S/P appendectomy S/P hysterectomy s/p right a-v fistula (~04/12/18) Social History (Updated 12/27/19 @ 15:[address] Francesco Quarles MD) Smoking Status: Never smoker alcohol intake: never substance use type: does not use Lab / Micro Data Result Diagrams: 12/10/21 01:48 12/10/21 01:48
[2021-12-10 09:59] LABS: Pathologist Review Reviewed
[2021-12-10 10:46] LABS: Thyroid Stim Hormone (TSH) 0.19 uIU/mL (0.358-3.74)
[2021-12-10] MEDS: TITRATION PARAMETER CHANGE 1 EACH IV (11:13)
[2021-12-10] MEDS: Vitamin B Comp W-C Capsule 1 CAP PO (11:14)
[2021-12-10] MEDS: Levothyroxine 112 MCG Tablet PO (11:14)
[2021-12-10] MEDS: SEVELAMER CARBONATE 800 MG TABLET PO ×2 (11:14→17:08)
[2021-12-10 11:38] LABS: Troponin-I HS 127 pg/mL (3.0-54.0)
[2021-12-10 11:43] LABS: Lactic Acid 0.9 mmol/L (0.4-1.9)
--- NOTE | 2021-12-10 12:00 | PCM.CONS.R ---
Assessment & Plan Assessment/Plan (1) ESRD (end stage renal disease) on dialysis: PLAN: dialysis MWF with AVF right upper arm. Will call Asuncion rojas and arrange dialysis tomorrow and MWF. primary medical and scientific illustrator Dr Ramirez (2) Hypotension: PLAN: likely from dehydration, afib with rvr (3) Atrial fibrillation: PLAN: tachycardia,m on amiodarone, digoxin. (4) Clostridioides difficile diarrhea: PLAN: leukocytosis, vanco po (5) Elevated troponin: (6) Diabetes: (7) HTN (hypertension): (8) Heart disease: (9) Dehydration: PLAN: iv fluids (10) Anemia: HPI Consult Data Date of Consult: 12/10/21 HPI Narrative Reason for Consultation: esrd dialysis mgmt HPI Narrative: CARINE HODGE, is a 86 F who presents to [facility] for dehydration, diarrhea with cdiff treated with vanco since , dizziness, emesis with confusion after dialysis. Pt agitated, yelling to stop asking questions.She has a history of dementia. Daughter with POA. Transferred to ICU today for hypotension, tachycardia, cdiff positive. Denied falling. Unreliable historian. AVG right upper arm. ESRD on HD MWF Dr Ramirez primary medical and scientific illustrator. [facility] Medical History (Updated 12/10/21 @ 12:[address] Kelsi Queen DO) Chronic renal failure, stage 5 Diabetes Heart disease HTN (hypertension) hypercholesterolemia Problem with dialysis access Renal failure Viabahn Stent to Right Subclavian Home Medications carvedilol 3.125 mg tablet 3.125 mg PO BID BP 03/30/18 [History Last Taken 12/09/21] ergocalciferol (vitamin D2) 1,250 mcg (50,000 unit) capsule 50,000 unit PO .QOWEEK Check with primary doctor 03/30/18 [History Last Taken 12/09/21] nateglinide 60 mg tablet 60 mg PO TID DIABETES 03/30/18 [History Last Taken 12/09/21] paroxetine HCl 40 mg tablet (Paxil) 40 mg PO DAILY Check with primary doctor 03/30/18 [History Last Taken 12/09/21] sevelamer carbonate 800 mg tablet 800 mg PO QPC Check with primary doctor 03/30/18 [History Last Taken 12/09/21] Cyanocobalamin (Vitamin B-12) [Cyanocobalamin Injection] 1,000 mcg IM QMONTH Check with primary doctor 04/06/18 [History Last Taken 12/09/21] rosuvastatin 40 mg tablet 40 mg PO QHS CHOLESTEROL 04/06/18 [History Last Taken 12/09/21] vitamin B complex-vitamin C-folic acid 0.8 mg tablet 0.8 mg PO DAILY 05/03/19 [History Last Taken Unknown] levothyroxine 112 mcg tablet (Synthroid) 112 mcg PO DAILY THYROID 12/10/21 [History Last Taken 12/09/21] Allergy/AdvReac Type Severity Reaction Status Date / Time Penicillins Allergy Mild Unknown Verified 08/01/21 10:52 Family History Brother Cancer Heart disease Mother Breast cancer Father CVA (cerebral vascular accident) Surgical History dialysis cath placement S/P appendectomy S/P hysterectomy s/p right a-v fistula (~04/12/18) Social History (Updated 12/27/19 @ 15:[address] Francesco Quarles MD) Smoking Status: Never smoker alcohol intake: never substance use type: does not use ROS ROS Narrative poor historian, limited history, confused. Chart reviewed Constitutional Constitutional: Denies chills, fever(s) or weakness ENT HEENT: Reports dry mouth Respiratory/Chest Respiratory/Chest: Denies dyspnea on exertion Gastrointestinal Gastrointestinal: Denies abdominal pain or anorexia Psychiatric Psychiatric: Reports other Details: belligerent, agitated, confused Physical Exam Const Constitutional Narrative: disoriented to time and place in the hospital but does not know city Orientation / Consciousness: confused Nutritional Appearance: thin HEENT HEENT Narrative: dry mucus membranes Cardio Cardio Narrative: tachycardic GI non-tender and non-distended Auscultation: normoactive bowel sounds Palpation: soft Extremity no clubbing, cyanosis or edema General Extremity: AV fistula Psych Attitude: uncooperative and belligerent Memory / Cognition: cognition impaired Lab / Micro Data Result Diagrams: 12/10/21 01:48 12/10/21 01:48 Labs: Laboratory Results - last 24 hr 12/10/21 01:48: Troponin I High Sens 151 H* 12/10/21 01:48: WBC 17.9 H, RBC 2.24 L, Hgb 7.9 L, Hct 25.7 L, MCV 114.7 H, MCH 35.3 H, MCHC 30.7 L, RDW Std Deviation 61.6 H, RDW Coeff of Keri 14.9 H, Plt Count 325, MPV 10.2, Immature Gran % (Auto) 0.800, Neut % (Auto) 82.2 H, Lymph % (Auto) 6.1 L, [place] % (Auto) 10.5 H, Eos % (Auto) 0.0, Baso % (Auto) 0.4, Absolute Neuts (auto) 14.7 H, Absolute Lymphs (auto) 1.09, Nucleated RBC % 0, Diff Path Review Reviewed, Anisocytosis 1+, Macrocytosis 3+ 12/10/21 01:48: Sodium 138, Potassium 4.2, Chloride 104, Carbon Dioxide 28.0, Anion Gap 6, BUN 36 H, Creatinine 4.41 H, Estim Creat Clear Calc 7.04, Est GFR (MDRD) Af Amer 12 L, Est GFR (MDRD) Non-Af 10 L, BUN/Creatinine Ratio 8.2 L, Glucose 84, Calcium 9.0, Magnesium 2.4, Total Bilirubin 1.00, AST 22, ALT 22, Alkaline Phosphatase 74, Total Protein 6.2 L, Albumin 1.8 L, Globulin 4.4 H, Albumin/Globulin Ratio 0.4 L 12/10/21 01:48: TSH 0.19 L 12/10/21 07:45: POC Glucose 83 12/10/21 08:19: Troponin I High Sens 103 H 12/10/21 10:50: Lactic Acid 0.9 12/10/21 10:50: Blood Type Cancelled, Antibody Screen Cancelled 12/10/21 11:10: Troponin I High Sens 127 H*
--- NOTE | 2021-12-10 13:30 | RAD_ITS ---
STUDY: X-RAY CHEST REASON FOR EXAM: Female, 86 years old. ? Sepsis TECHNIQUE: Single AP portable view of the chest. COMPARISON: Comparison is made with prior study dated 10/11/2019. FINDINGS: EKG electrodes are seen. Vascular stent is seen in the right subclavian artery. Small left pleural effusion and left basilar infiltration and/or atelectasis. Calcification of the mitral valve annulus. Normal mediastinum and rey. Normal visualized pulmonary arteries. There is atherosclerotic calcification of the aortic arch with tortuosity. There are diffuse degenerative changes of the visualized thoracic spine. Mild dextroscoliosis. Normal visualized ribs, clavicles, and shoulders. There is no demonstrated abnormality of the visualized soft tissue structures of the upper abdomen. RAD/Chest 1 View (Portable) IMPRESSION: Small left pleural effusion with left basilar infiltration and/or atelectasis. Electronically Signed: Ridge Luciano MD at 14:00 EDT ,
[2021-12-10 14:04] LABS: Troponin-I HS 164 pg/mL (3.0-54.0)
--- NOTE | 2021-12-10 14:20 | EKG12_ITS ---
Test Reason : RHYTHM CHANGE Blood Pressure : / mmHG Vent. Rate : 054 BPM Atrial Rate : 054 BPM P-R Int : 134 ms QRS Dur : 098 ms QT Int : 406 ms P-R-T Axes : 060 007 068 degrees QTc Int : 385 ms Sinus bradycardia Septal infarct (cited on or before 01-AUG-2021) Abnormal ECG When compared with ECG of 10-DEC-2021 02:39, Sinus rhythm has replaced Atrial fibrillation Vent. rate has decreased BY 67 BPM Borderline criteria for Lateral infarct are no longer Present T wave amplitude has decreased in Anterior leads Confirmed by CARYN RIZVI, SIN ([id number]), graphic editor NYA THAYER ([id number]) on 12/17/2021 10:20:18 AM Referred By: JOSAFAT Confirmed By:SIN RUBIN MD
--- NOTE | 2021-12-10 14:22 | PN.HOSP_ITS ---
Subjective Subjective Patient seen and examined. I was called by the nurse early this morning that patient was very hypotensive with BP in the 60s systolic,and was tachycardic, in afib. Code status was DNRCCA no intubation. On review of the patient, she was alert. She denied any lightheadedness, dizziness, palpitations,nausea, vomiting or diarrhea. She had been started on a bolus of normal saline 1L; BP had come up to 80s systolic. She was still tachycardic with HR being in the 130s; she was in afib with RVR. On review of her records, patient had been tachycardic from ~ 3am on 12/10/2021. BP was 88/39 on admission; BP had gone as low as 68/53 during the night. Patient was started on normal saline 75cc/hr. A rapid response was called at ~ 4am o/a of patient being in afib with RVR and being hypotensive. Patient was given hetastarch then and her fluid rate was increased to 125cc/hr. Objective Data Objective Data Vital Signs: Vital Signs Temp Pulse Resp BP Pulse Ox O2 Del Method O2 Flow Rate 97.7 F L 102 H 21 H 100/60 100 Nasal Cannula 1 12/10/21 14:00 12/10/21 14:00 12/10/21 14:00 12/10/21 14:00 12/10/21 14:00 12/10/21 14:00 12/10/21 14:00 Oxygen Flow Rate (L/min) 1 Oxygen Delivery Method Nasal Cannula Weight: 111 lb 12.39 oz Body Mass Index (BMI) 21.1 Intake & Output: Intake and Output for Last 24 Hours 12/08/21 12/09/21 12/10/21 23:59 23:59 23:59 Intake Total 3533.84 / 3533.84 Balance 3533.84 / 3533.84 Lab / Micro Data Result Diagrams: 12/10/21 01:48 12/10/21 01:48 Labs: Laboratory Results - last 24 hr 12/10/21 01:48: Troponin I High Sens 151 H* 12/10/21 01:48: WBC 17.9 H, RBC 2.24 L, Hgb 7.9 L, Hct 25.7 L, MCV 114.7 H, MCH 35.3 H, MCHC 30.7 L, RDW Std Deviation 61.6 H, RDW Coeff of Keri 14.9 H, Plt Count 325, MPV 10.2, Immature Gran % (Auto) 0.800, Neut % (Auto) 82.2 H, Lymph % (Auto) 6.1 L, [place] % (Auto) 10.5 H, Eos % (Auto) 0.0, Baso % (Auto) 0.4, Absolute Neuts (auto) 14.7 H, Absolute Lymphs (auto) 1.09, Nucleated RBC % 0, Diff Path Review Reviewed, Anisocytosis 1+, Macrocytosis 3+ 12/10/21 01:48: Sodium 138, Potassium 4.2, Chloride 104, Carbon Dioxide 28.0, Anion Gap 6, BUN 36 H, Creatinine 4.41 H, Estim Creat Clear Calc 7.04, Est GFR (MDRD) Af Amer 12 L, Est GFR (MDRD) Non-Af 10 L, BUN/Creatinine Ratio 8.2 L, Glucose 84, Calcium 9.0, Magnesium 2.4, Total Bilirubin 1.00, AST 22, ALT 22, Alkaline Phosphatase 74, Total Protein 6.2 L, Albumin 1.8 L, Globulin 4.4 H, Albumin/Globulin Ratio 0.4 L 12/10/21 01:48: TSH 0.19 L 12/10/21 07:45: POC Glucose 83 12/10/21 08:19: Troponin I High Sens 103 H 12/10/21 10:50: Lactic Acid 0.9 12/10/21 10:50: Blood Type Cancelled, Antibody Screen Cancelled 12/10/21 11:10: Troponin I High Sens 127 H* 12/10/21 11:57: Blood Type Cancelled, Antibody Screen Cancelled 12/10/21 12:25: Blood Type Cancelled, Antibody Screen Cancelled 12/10/21 13:22: Troponin I High Sens 164 H* Radiography Diagnostic Testing: Radiology Impression Echocardiogram 12/10/21 08:01 Interpretation Summary Left ventricular systolic function is normal. The estimated ejection fraction is 55 %. The left atrium is mildly enlarged. There is moderate mitral annular calcification. Extension of the mitral annular calcification on the base the posterior mitral valve leaflet. Anterior leaflet diffuse mitral valve thickening. Mild focal mitral valve calcification of the anterior leaflet. Moderately severe (3+) eccentric mitral valve insufficiency. Moderately severe (3+) tricuspid valve insufficiency. Moderate aortic stenosis. Trivial pulmonic valve insufficiency. Small to moderate pericardial effusion. There are no echocardiographic indications of cardiac tamponade. Right ventricular systolic pressure estimated to be 97 mmHg. Severe pulmonary hypertension. Unable to assess diastolic dysfunction. Ordering Physician: Salma Barrett Performed By: Bela Ruiz RCS Chest X-Ray 12/10/21 13:30 IMPRESSION: Small left pleural effusion with left basilar infiltration and/or atelectasis. Electronically Signed: Ridge Luciano MD at 14:00 EDT , Physical Exam Const alert, oriented x3 and no apparent distress HEENT head/scalp atraumatic HEENT Narrative: dry mucosal membanes Head and Scalp: normocephalic Mouth: dry mucous membranes Eyes PERRL, EOMs intact bilaterally and conjunctivae normal Neck no lymphadenopathy and supple Resp normal respiratory effort, no retractions, no use of accessory muscles and clear to auscultation bilaterally Cardio S1 normal heart sound, S2 normal heart sound and no murmurs Cardio Narrative: tachcyardic, Afib with RVR GI normal to inspection, nondistended, normoactive bowel sounds, soft to palpation, non-tender and non-distended Extremity normal to inspection, full ROM and no clubbing, cyanosis or edema Neuro oriented x3, CN's II-XII intact bilaterally, moves all extremities and no focal motor deficits Sensorium / Orientation: awake, alert, oriented to person, oriented to place and oriented to time Motor Exam: strength 5/5 throughout Assessment & Plan Assessment/Plan (1) Hypotension: (2) Paroxysmal atrial fibrillation with RVR: PLAN: Plan #Afib with RVR * doesnt have a known history of afib with RVR * daughter says patient had had frequent episodes of palpitations. Her supply chain generalist who she was seeing for a leaky valve had planned workup for afib with an event monitor * 2D echo ordered * being hydrated with IVF * initial troponin was also elevated. * cardiology consulted * CHADVASC score: at least 5 * started on amiodarone drip and also give a dose of digoxin by cardiology * hold off on anticoagulation now as patient is significantly anemic * cardiology on board * #shock, likely septic * patient has been hypotensive since admission. Recieved IVF * unable to aggressively hydrate with IVF as she has ESRD and is on dialysis * transferred emergently to ICU * she hasnt had any more diarrhea overnight * she does meet sepsis criteria also with her tachycardia and tachypnea * will get blood cultures * wbc was also elevated * will likely need initiation of vasopressors- levophed * start broad spectrum antibiotics #C Diff * diarrhea has resolved. * on oral vancomycin * hasn't had any diarrhea since admission * #ELevated troponin * initial troponin was elevated, at 157; troponins werent cycled * will get troponin series * 2D echo ordered * cardiology consulted * Anemia * Hb is 7.9 * reason for anemia is unclear * last Hb in record on 08/01/21 is 12.4 * will check iron profile with ferritin * pantoprazole drip ordered * check for stool with occult blood * #ESRD * nephrology consulted for dialysis * on sevelamer * #Hypothyroidism: * on synthroid. TSH is 0.19. * Will check free T4, though this may not be very reliable in light of critical illness * #Hyperlipidemia: on statin DVT prophylaxis; SCDs Code status: full code * I called patient's daughter Lorenza and clarified patient's code status. Daughter had stated that patient's code status was DNRCCA no intubation on admission. However, I spoke to patient today and she said she wanted to have CPR and intubation if needed. Daughter stated that she would comply with her mother's wishes, as patient is alert and oriented x 3. * code status therefore switched to full code. * Total face to face time: 18 mins Charges/Coding Visit Charges Inpatient E&M: 62320 Subs Hosp L3 Procedures Hospitalists Procedures: [id number] Advncd Care Plan 30 Min
--- NOTE | 2021-12-10 14:33 | EKG12_ITS ---
Test Reason : AM EKG Blood Pressure : / mmHG Vent. Rate : 065 BPM Atrial Rate : 065 BPM P-R Int : 152 ms QRS Dur : 098 ms QT Int : 448 ms P-R-T Axes : 061 049 098 degrees QTc Int : 465 ms Normal sinus rhythm Nonspecific T wave abnormality Abnormal ECG When compared with ECG of 14-DEC-2021 03:11, MANUAL COMPARISON REQUIRED, DATA IS UNCONFIRMED Confirmed by CARYN RIZVI, SIN ([id number]), editor news NYA THAYER ([id number]) on 12/17/2021 10:12:36 AM Referred By: Confirmed By:SIN RUBIN MD
[2021-12-10] MEDS: Ondansetron 4 MG/2 ML Vial IV (14:47)
--- NOTE | 2021-12-10 14:50 | CON.PCM.CC_ITS ---
Assessment & Plan Assessment/Plan (1) Paroxysmal atrial fibrillation with RVR: PLAN: Plan RECOMMENDATIONS: 1. Stop continuous IV fluids. 2. Start Levophed to maintain a mean arterial pressure at or above 65 mmHg. 3. Obtain echocardiogram. 4. Continue amiodarone as ordered. 5. Check TSH and free T4. 6. Obtain nephrology consultation to assist with hemodialysis needs. 7. Send type and screen. IMPRESSIONS: 1. Hypovolemic versus distributive shock Likely secondary to GI losses in the setting of C. difficile colitis. Fluid management has been conservative in light of her hypoalbuminemia and end-stage renal disease. In light of her ongoing hypotension, recommend initiation of vasopressor support to maintain a mean arterial pressure at or above 65 mmHg. Continue p.o. vancomycin to address previously established diagnosis of C. difficile colitis. Obtain blood cultures as well along with plain film chest x- ray. The patient's atrial fibrillation with RVR is also likely contributing to her current hemodynamic status. Cardiology is following to assist with medical management. 2. Anemia of unclear etiology The patient presented to the hospital with a hemoglobin of 7.9 g/dL. Plan to send type and screen and transfuse if hemoglobin drops below 7 g/dL. The patient will be started on twice daily PPI therapy as well. Check stool for occult blood. 3. Troponin elevation/atrial fibrillation Likely secondary to demand ischemia. Cardiology is currently following. Echocardiogram is pending. Continue amiodarone as ordered. 4. End-stage renal disease on hemodialysis Nephrology consultation is pending to assist with ongoing hemodialysis needs. 5. Advanced age/dementia/hypothyroidism/hyperlipidemia Complicates care, management, recovery and prognosis. Continue home medications as indicated. Check TSH and free T4. TIME: 35 minutes of critical care time, independent of procedures, was spent addressing the patient's shock, anemia, troponin elevation, atrial fibrillation, review of all data and collaboration with the care team. HPI Consult Data Date of Consult: 12/10/21 HPI Narrative Reason for Consultation: Shock HPI Narrative: The patient is an 86-year-old female, with a history as outlined below, who presented as a transfer of care due to altered mentation and hypotension.? The patient has been under treatment for C. difficile colitis with oral vancomycin.? She has end-stage renal disease on hemodialysis. On presentation to the hospital, the patient was noted to be afebrile but was hypotensive with a blood pressure of 88/39 mmHg.? Throughout the night, the patient became progressively tachycardic with persistent hypotension.? She was initially treated by the overnight hospitalist with IV fluids, without any improvement in her hemodynamic status.? During the beamer operator hours of December 10, a rapid response team was called due to hemodynamic instability and continued altered mentation.? That provider ordered hetastarch to be administered.? Again, this did not correct the patient's hemodynamic instability.? Ultimately, [facility] started on vasopressor support.? In addition to the aforementioned, the patient developed atrial fibrillation with RVR. Initial laboratory evaluation revealed an elevated white blood cell count to 18,000.? Hemoglobin was noted to be 7.9 g/dL, down from 12.4 g/dL in July 2021 .? Chemistry profile was notable for a BUN of 36 and creatinine of 4.41.? Total bilirubin was normal at 1.0.? Troponins were increased at 151. [facility] Medical History (Updated 12/10/21 @ 14:[address] Salma Barrett MD) Chronic renal failure, stage 5 Diabetes Heart disease HTN (hypertension) hypercholesterolemia Problem with dialysis access Renal failure Viabahn Stent to Right Subclavian Home Medications carvedilol 3.125 mg tablet 3.125 mg PO BID BP 03/30/18 [History Last Taken 12/09/21] ergocalciferol (vitamin D2) 1,250 mcg (50,000 unit) capsule 50,000 unit PO .QOWEEK Check with primary doctor 03/30/18 [History Last Taken 12/09/21] nateglinide 60 mg tablet 60 mg PO TID DIABETES 03/30/18 [History Last Taken 12/09/21] paroxetine HCl 40 mg tablet (Paxil) 40 mg PO DAILY Check with primary doctor 03/30/18 [History Last Taken 12/09/21] sevelamer carbonate 800 mg tablet 800 mg PO QPC Check with primary doctor 03/30/18 [History Last Taken 12/09/21] Cyanocobalamin (Vitamin B-12) [Cyanocobalamin Injection] 1,000 mcg IM QMONTH Check with primary doctor 04/06/18 [History Last Taken 12/09/21] rosuvastatin 40 mg tablet 40 mg PO QHS CHOLESTEROL 04/06/18 [History Last Taken 12/09/21] vitamin B complex-vitamin C-folic acid 0.8 mg tablet 0.8 mg PO DAILY 05/03/19 [History Last Taken Unknown] levothyroxine 112 mcg tablet (Synthroid) 112 mcg PO DAILY THYROID 12/10/21 [History Last Taken 12/09/21] Allergy/AdvReac Type Severity Reaction Status Date / Time Penicillins Allergy Mild Unknown Verified 08/01/21 10:52 Family History Brother Cancer Heart disease Mother Breast cancer Father CVA (cerebral vascular accident) Surgical History dialysis cath placement S/P appendectomy S/P hysterectomy s/p right a-v fistula (~04/12/18) Social History (Updated 12/27/19 @ 15:[address] Francesco Quarles MD) Smoking Status: Never smoker alcohol intake: never substance use type: does not use ROS Review of Systems ROS Unobtainable: due to mental status Physical Exam Const alert and no apparent distress General Appearance: cooperative Orientation / Consciousness: confused and disoriented HEENT normocephalic and head/scalp atraumatic Eyes PERRL and EOMs intact bilaterally Neck supple General: trachea midline Chest inspection of chest normal Resp normal respiratory effort Auscultation: Negative for rales, rhonchi or wheezes Cardio S1 normal heart sound and S2 normal heart sound Rate: tachycardic Rhythm: abnormal rhythm GI normal to inspection, nondistended, normoactive bowel sounds Extremity no clubbing, cyanosis or edema Skin no rashes or lesions noted Neuro no focal motor deficits Psych cooperative Lab / Micro Data Result Diagrams: 12/10/21 01:48 12/10/21 01:48 Labs: Laboratory Results - last 24 hr 12/10/21 01:48: Troponin I High Sens 151 H* 12/10/21 01:48: WBC 17.9 H, RBC 2.24 L, Hgb 7.9 L, Hct 25.7 L, MCV 114.7 H, MCH 35.3 H, MCHC 30.7 L, RDW Std Deviation 61.6 H, RDW Coeff of Keri 14.9 H, Plt Count 325, MPV 10.2, Immature Gran % (Auto) 0.800, Neut % (Auto) 82.2 H, Lymph % (Auto) 6.1 L, [place] % (Auto) 10.5 H, Eos % (Auto) 0.0, Baso % (Auto) 0.4, Absolute Neuts (auto) 14.7 H, Absolute Lymphs (auto) 1.09, Nucleated RBC % 0, Diff Path Review Reviewed, Anisocytosis 1+, Macrocytosis 3+ 12/10/21 01:48: Sodium 138, Potassium 4.2, Chloride 104, Carbon Dioxide 28.0, Anion Gap 6, BUN 36 H, Creatinine 4.41 H, Estim Creat Clear Calc 7.04, Est GFR (MDRD) Af Amer 12 L, Est GFR (MDRD) Non-Af 10 L, BUN/Creatinine Ratio 8.2 L, Glucose 84, Calcium 9.0, Magnesium 2.4, Total Bilirubin 1.00, AST 22, ALT 22, Alkaline Phosphatase 74, Total Protein 6.2 L, Albumin 1.8 L, Globulin 4.4 H, Albumin/Globulin Ratio 0.4 L 12/10/21 01:48: TSH 0.19 L 12/10/21 07:45: POC Glucose 83 12/10/21 08:19: Troponin I High Sens 103 H 12/10/21 10:50: Lactic Acid 0.9 12/10/21 10:50: Blood Type Cancelled, Antibody Screen Cancelled 12/10/21 11:10: Troponin I High Sens 127 H* 12/10/21 11:57: Blood Type Cancelled, Antibody Screen Cancelled 12/10/21 12:25: Blood Type Cancelled, Antibody Screen Cancelled 12/10/21 13:22: Troponin I High Sens 164 H* Radiology Impression Echocardiogram 12/10/21 08:01 Interpretation Summary Left ventricular systolic function is normal. The estimated ejection fraction is 55 %. The left atrium is mildly enlarged. There is moderate mitral annular calcification. Extension of the mitral annular calcification on the base the posterior mitral valve leaflet. Anterior leaflet diffuse mitral valve thickening. Mild focal mitral valve calcification of the anterior leaflet. Moderately severe (3+) eccentric mitral valve insufficiency. Moderately severe (3+) tricuspid valve insufficiency. Moderate aortic stenosis. Trivial pulmonic valve insufficiency. Small to moderate pericardial effusion. There are no echocardiographic indications of cardiac tamponade. Right ventricular systolic pressure estimated to be 97 mmHg. Severe pulmonary hypertension. Unable to assess diastolic dysfunction. Ordering Physician: Salma Barrett Performed By: Bela Ruiz RCS Chest X-Ray 12/10/21 13:30 IMPRESSION: Small left pleural effusion with left basilar infiltration and/or atelectasis. Electronically Signed: Ridge Luciano MD at 14:00 EDT , Charges/Coding Procedures Hospitalists Procedures: [id number] Critial Care 1st Hr
--- NOTE | 2021-12-10 15:29 | CASEMGMT ---
JORGE YU called daughter JENA Britt, for initial transition planning/care coordination assessment as patient has dementia. JORGE YU introduced self and role at [facility]. Lorenza willing to participate in assessment and is able to answer all questions appropriately. Care providers, pharmacy, and demographics verified. Daughter states that it is getting more difficult to care for patient with her demenia and wishes for patient to go to SNF at discharge. Lroenza states he preferred provider for SNF is [facility]. JORGE YU explained that this CM will provide list of SNF providers including quality and resource use data and consistent with the patient?s preferred geographic region, medical needs, and insurance network on patient's bedside table. Daughter voiced understanding. Daughter states she has no further needs or concerns at this time. SW updated regarding request for SNF at discharge. CM to follow for discharge planning needs that may arise. PCP: [facility] Specialists: Gissel, circle beveler, Yoly; Dr Ramirez, Docking Pilot; [facility] in [place] Preferred Pharmacy: [facility] Insurance: [employer] Prescription Benefit: yes Living Will/HPOA: yes, daughter Lorenza Jack LNOK: daughters Living Arrangements: Patient was living alone at home and has been more confused in the last month or two. Daughter take turns checking on patient and providing meals and care. Patient has [facility] aide that sees patient 2-3 days per week. Daughter states patient was able to toilet and dress self, daughter was assisting with bathing. Transportation: daughters, [facility] DME/HHC: Patient has shower chair, cane, grab bars, walker, and cpap but has not been wearing due to dementia. Patient attend HD at [facility] in [facility] at 7am, daughter would drop [facility] off [facility] and assist patient with lunch. Per daughter patient has been to [facility] in the past. Patient had HHC 5 years ago but could not recall agency. Daughter states that if patient goes to SNF in [place] she could assist with transport to HD. Disposition Plan: SNF pending acceptance and precert. Arlyn MCCONNELL, RN, CM
[2021-12-10] MEDS: Amiodarone 360 MG in Dextrose 5% Viaflo Bag 192.8 ML 16.7 MG CONT INF (15:39)
[2021-12-10 17:18] LABS: T4 Free Direct 1.67 ng/dL (0.76-1.46)
[2021-12-10 17:19] LABS: Ferritin 1974 ng/mL (8-252); Iron 69 ug/dL (50-170); Iron Binding Capacity,Total 307 ug/dL (250-450); PERCENT IRON SATURATION 22.5 % (15.0-55.0)
[2021-12-10] MEDS: Acetaminophen 325 MG Tablet 650 MG PO (18:26)
[2021-12-10] MEDS: Atorvastatin Calcium 80 MG Tablet PO (21:20)
[2021-12-11] VITALS (30 sets, daily range): BP systolic 80–146; BP diastolic 38–68; PULSE 50–110; RESP 15–25; TEMP 36.3–37.3; O2SAT 84–100
[2021-12-11] MEDS: Amiodarone 360 MG in Dextrose 5% Viaflo Bag 192.8 ML 16.7 MG CONT INF ×2 (03:38→20:42)
[2021-12-11 04:28] LABS: Absolute Lymphocyte Count 0.85 X10^3/uL (0.83-4.51); Absolute Neutrophil Count 12.3 X10^3/uL (2.0-7.7); Basophil# 0.05 X10^3/uL; Basophil% 0.3 % (0-1); Eosinophil# 0.07 X10^3/uL; Eosinophils% 0.5 % (0-5); Hematocrit 26.5 % (37-47); Hemoglobin 8.1 g/dL (12.0-15.0); Lymphocyte # 0.85 X10^3/ul (0.83-4.51); Lymphocyte % 5.9 % (19-41); Mean Corp Hgb Conc 30.6 g/dL (32-36); Mean Corpuscular Hgb 35.5 pg (27.0-32.0); Mean Corpuscular Volume 116.2 fL (81-99); Mean Platelet Vol. 10.2 fl (6.2-12.0); Monocyte# 1.12 X10^3/uL; Monocyte% 7.7 % (0-10); NRBC Flagged by Analyzer 0 % (0-5); Neutrophil # 12.27 X10^3/uL (2.7-7.7); Neutrophil % 84.8 % (47-70); Platelet Count 329 K/mm3 (150-450); RBC Distribution Width CV 14.7 % (11.6-14.6); RBC Distribution Width SD 62.3 fl (35.1-43.9); Red Blood Count 2.28 M/mm3 (4.2-5.4); White Blood Count 14.5 K/mm3 (4.4-11.0)
[2021-12-11 05:11] LABS: Bedside Glucose 103 mg/dL (74-106)
[2021-12-11 05:24] LABS: ALB/GLOB Ratio 0.4 RATIO (0.9-2.4); AST(SGOT) 21 U/L (15-37); Alanine Aminotransfer ALT/SGPT 21 U/L (13-56); Albumin, Serum 1.8 g/dL (3.2-5.0); Alkaline Phosphatase 111 U/L (45-117); Anion Gap 6 (5-15); BUN 45 mg/dL (7-18); BUN/Creat Ratio 8.5 RATIO (10-20); Calcium,Total 9.1 mg/dL (8.5-10.1); Chloride 105 mmol/L (98-107); Creatinine, Serum 5.27 mg/dL (0.55-1.02); EST Glomerular Filtration Rate 8 mL/min (>60); Est Glom Filt Rate - Afr Amer 10 mL/min (>60); Estimated Creatinine Clearance 5.89 ml/min; Globulin 4.3 g/dL (2.2-4.2); Glucose 137 mg/dL (74-106); Potassium 4.9 mmol/L (3.5-5.1); Protein, Total 6.1 g/dL (6.4-8.2); Sodium Level 137 mmol/L (136-145)
--- NOTE | 2021-12-11 06:06 | PN.CC_ITS ---
Assessment & Plan Assessment/Plan (1) Paroxysmal atrial fibrillation with RVR: PLAN: Plan RECOMMENDATIONS: 1. Continue empiric antimicrobials, pending culture results. 2. Continue p.o. vancomycin, given recent history of C. difficile colitis. 3. Rate/rhythm control strategy per cardiology. 4. Wean supplemental oxygen for saturations greater than 90%. 5. Ongoing dialysis support per nephrology recommendations. 6. Encourage incentive spirometer use. IMPRESSIONS: 1. Hypovolemic versus distributive shock Likely secondary to GI losses in the setting of C. difficile colitis. Fluid management has been conservative in light of her hypoalbuminemia and end-stage renal disease. Regardless, the patient has been weaned from vasopressor support and remains hemodynamically stable. Plan to continue empiric antimicrobials pen ding finalized culture results. Continue p.o. vancomycin to address previously established diagnosis of C. difficile colitis. 2. Anemia of unclear etiology The patient presented to the hospital with worsened anemia from baseline. However, her counts have remained stable without the need for transfusion of blood products. Plan to continue to monitor H&H daily and transfuse if hemoglobin drops below 7 g/dL. Continue PPI therapy as ordered. 3. Troponin elevation/atrial fibrillation Likely secondary to demand ischemia. Cardiology is currently following. Echocardiogram was unrevealing. Continue amiodarone per recommendations. 4. End-stage renal disease on hemodialysis Nephrology is following to assist with hemodialysis needs. 5. Advanced age/dementia/hypothyroidism/hyperlipidemia Complicates care, management, recovery and prognosis. Continue home medications as indicated. This note was generated with [employer] dictation software. It may contain incorrect words, spelling, and punctuation that were not noted in checking the note before signing. Subjective Subjective The patient was seen and examined at the bedside this morning. Events from the last 24 hours have been reviewed. The patient is currently afebrile, hemodynamically stable and maintaining appropriate oxygen saturations on 1 L/min via nasal cannula. The patient was able to be weaned successfully off of Levophed yesterday evening. She is currently documented to be overall net +4.3 L for the hospitalization. Hemoglobin is stable this morning at 8.1 g/dL. There are plans for hemodialysis this morning. Objective Data Objective Data The patient's most recent lab work, culture data and imaging studies have all been personally reviewed. Surface echocardiogram demonstrated normal LV size with an ejection fraction of 55%. Moderately severe mitral valve insufficiency was noted along with moderately severe tricuspid valve insufficiency. Right ventricular systolic pressure was estimated to be 97 mmHg. Moderate aortic stenosis was also noted. Blood cultures are currently pending. Vital Signs: Vital Signs Temp Pulse Resp BP Pulse Ox O2 Del Method O2 Flow Rate 97.8 F 63 20 H 115/46 L 99 Nasal Cannula 1 12/11/21 04:00 12/11/21 06:00 12/11/21 06:00 12/11/21 06:00 12/11/21 06:00 12/11/21 06:00 12/11/21 06:00 Oxygen Flow Rate (L/min) 1 Oxygen Delivery Method Nasal Cannula Weight: 122 lb 5.705 oz Body Mass Index (BMI) 21.1 Intake & Output: Intake and Output for Last 24 Hours 12/09/21 12/10/21 12/11/21 23:59 23:59 23:59 Intake Total 4101.35 / 4101.35 200 / 200 Output Total 0 / 0 Balance 4101.35 / 4101.35 200 / 200 Lab / Micro Data Attestation: I reviewed the patient's lab results. Result Diagrams: 12/11/21 04:10 12/11/21 05:02 Labs: Laboratory Results - last 24 hr 12/10/21 01:48: Diff Path Review Reviewed 12/10/21 01:48: TSH 0.19 L 12/10/21 01:48: Free T4 1.67 H 12/10/21 01:48: Iron 69, TIBC 307, Iron Saturation 22.5, Ferritin 1974 H 12/10/21 07:45: POC Glucose 83 12/10/21 08:19: Troponin I High Sens 103 H 12/10/21 10:50: Lactic Acid 0.9 12/10/21 10:50: Blood Type Cancelled, Antibody Screen Cancelled 12/10/21 11:10: Troponin I High Sens 127 H* 12/10/21 11:57: Blood Type Cancelled, Antibody Screen Cancelled 12/10/21 12:25: Blood Type Cancelled, Antibody Screen Cancelled 12/10/21 13:22: Troponin I High Sens 164 H* 12/10/21 13:22: Blood Type A NEGATIVE, Antibody Screen NEGATIVE 12/11/21 04:10: WBC 14.5 H, RBC 2.28 L, Hgb 8.1 L, Hct 26.5 L, MCV 116.2 H, MCH 35.5 H, MCHC 30.6 L, RDW Std Deviation 62.3 H, RDW Coeff of Keri 14.7 H, Plt Count 329, MPV 10.2, Immature Gran % (Auto) 0.800, Neut % (Auto) 84.8 H, Lymph % (Auto) 5.9 L, [place] % (Auto) 7.7, Eos % (Auto) 0.5, Baso % (Auto) 0.3, Absolute Neuts (auto) 12.3 H, Absolute Lymphs (auto) 0.85, Nucleated RBC % 0 12/11/21 04:10: Sodium Cancelled, Potassium Cancelled, Chloride Cancelled, Carbon Dioxide Cancelled, Anion Gap Cancelled, BUN Cancelled, Creatinine Cancelled, Estim Creat Clear Calc Cancelled, Est GFR (MDRD) Af Amer Cancelled, Est GFR (MDRD) Non-Af Cancelled, BUN/Creatinine Ratio Cancelled, Glucose Cancelled, Calcium Cancelled, Total Bilirubin Cancelled, AST Cancelled, ALT Cancelled, Alkaline Phosphatase Cancelled, Total Protein Cancelled, Albumin Cancelled, Globulin Cancelled, Albumin/Globulin Ratio Cancelled 12/11/21 04:53: POC Glucose 103 12/11/21 05:02: Sodium 137, Potassium 4.9, Chloride 105, Carbon Dioxide 26.0, Anion Gap 6, BUN 45 H, Creatinine 5.27 H, Estim Creat Clear Calc 5.89, Est GFR (MDRD) Af Amer 10 L, Est GFR (MDRD) Non-Af 8 L, BUN/Creatinine Ratio 8.5 L, Glucose 137 H, Calcium 9.1, Total Bilirubin 0.70, AST 21, ALT 21, Alkaline Phosphatase 111, Total Protein 6.1 L, Albumin 1.8 L, Globulin 4.3 H, Albumin/Gl obulin Ratio 0.4 L Radiography Diagnostic Testing: Radiology Impression Echocardiogram 12/10/21 08:01 Interpretation Summary Left ventricular systolic function is normal. The estimated ejection fraction is 55 %. The left atrium is mildly enlarged. There is moderate mitral annular calcification. Extension of the mitral annular calcification on the base the posterior mitral valve leaflet. Anterior leaflet diffuse mitral valve thickening. Mild focal mitral valve calcification of the anterior leaflet. Moderately severe (3+) eccentric mitral valve insufficiency. Moderately severe (3+) tricuspid valve insufficiency. Moderate aortic stenosis. Trivial pulmonic valve insufficiency. Small to moderate pericardial effusion. There are no echocardiographic indications of cardiac tamponade. Right ventricular systolic pressure estimated to be 97 mmHg. Severe pulmonary hypertension. Unable to assess diastolic dysfunction. _ Ordering Physician: Salma Barrett Performed By: Bela Ruiz RCS Chest X-Ray 12/10/21 13:30 IMPRESSION: Small left pleural effusion with left basilar infiltration and/or atelectasis. Electronically Signed: Ridge Luciano MD at 14:00 EDT , Physical Exam Const alert and no apparent distress General Appearance: cooperative Orientation / Consciousness: confused and disoriented HEENT normocephalic and head/scalp atraumatic Eyes PERRL and EOMs intact bilaterally Neck supple General: trachea midline Chest inspection of chest normal Resp normal respiratory effort Auscultation: Negative for rales, rhonchi or wheezes Cardio regular rate, regular rhythm, S1 normal heart sound and S2 normal heart sound GI normal to inspection, nondistended, normoactive bowel sounds Extremity no clubbing, cyanosis or edema Skin no rashes or lesions noted Neuro no focal motor deficits Psych cooperative Charges/Coding Visit Charges Inpatient E&M: 29960 Subs Hosp L3
[2021-12-11] MEDS: Vancomycin 125 MG/5 ML Susp PO.SYRINGE PO ×3 (06:19→17:12)
[2021-12-11] MEDS: Levothyroxine 112 MCG Tablet PO (06:22)
[2021-12-11] MEDS: Vitamin B Comp W-C Capsule 1 CAP PO (07:57)
[2021-12-11] MEDS: SEVELAMER CARBONATE 800 MG TABLET PO ×2 (07:57→17:12)
[2021-12-11] MEDS: 0.9% Saline Lock 10 ML Syringe IV ×2 (09:46→21:15)
[2021-12-11] MEDS: Ondansetron 4 MG/2 ML Vial IV (09:46)
[2021-12-11] MEDS: Nepro with Carbsteady 237 ML Liquid 120 ML PO ×3 (10:28→21:16)
--- NOTE | 2021-12-11 10:32 | PN.HOSP_ITS ---
Subjective Subjective Patient seen and examined. She was undergoing dialysis at time of review. She complained of pain all over. She denied any fever, chills, nausea, vomiting, diarrhea, chest pain, abdominal pain or palpitations. SHe converted to spontaneous sinus rhythm yesterday. She remains on cardizem drip. She was weaned off levophed drip overnight. Objective Data Objective Data Vital Signs: Vital Signs Temp Pulse Resp BP Pulse Ox O2 Del Method O2 Flow Rate 97.5 F L 67 21 H 141/52 H 100 Nasal Cannula 1 12/11/21 10:00 12/11/21 10:00 12/11/21 10:00 12/11/21 10:00 12/11/21 10:00 12/11/21 10:00 12/11/21 10:00 Oxygen Flow Rate (L/min) 1 Oxygen Delivery Method Nasal Cannula Weight: 122 lb 5.705 oz Body Mass Index (BMI) 21.1 Intake & Output: Intake and Output for Last 24 Hours 12/09/21 12/10/21 12/11/21 23:59 23:59 23:59 Intake Total 4101.35 / 4101.35 200 / 200 Output Total 0 / 0 Balance 4101.35 / 4101.35 200 / 200 Lab / Micro Data Result Diagrams: 12/11/21 04:10 12/11/21 05:02 Labs: Laboratory Results - last 24 hr 12/10/21 01:48: TSH 0.19 L 12/10/21 01:48: Free T4 1.67 H 12/10/21 01:48: Iron 69, TIBC 307, Iron Saturation 22.5, Ferritin 1974 H 12/10/21 10:50: Lactic Acid 0.9 12/10/21 10:50: Blood Type Cancelled, Antibody Screen Cancelled 12/10/21 11:10: Troponin I High Sens 127 H* 12/10/21 11:57: Blood Type Cancelled, Antibody Screen Cancelled 12/10/21 12:25: Blood Type Cancelled, Antibody Screen Cancelled 12/10/21 13:22: Troponin I High Sens 164 H* 12/10/21 13:22: Blood Type A NEGATIVE, Antibody Screen NEGATIVE 12/11/21 04:10: WBC 14.5 H, RBC 2.28 L, Hgb 8.1 L, Hct 26.5 L, MCV 116.2 H, MCH 35.5 H, MCHC 30.6 L, RDW Std Deviation 62.3 H, RDW Coeff of Keri 14.7 H, Plt Count 329, MPV 10.2, Immature Gran % (Auto) 0.800, Neut % (Auto) 84.8 H, Lymph % (Auto) 5.9 L, [place] % (Auto) 7.7, Eos % (Auto) 0.5, Baso % (Auto) 0.3, Absolute Neuts (auto) 12.3 H, Absolute Lymphs (auto) 0.85, Nucleated RBC % 0 12/11/21 04:10: Sodium Cancelled, Potassium Cancelled, Chloride Cancelled, Carbon Dioxide Cancelled, Anion Gap Cancelled, BUN Cancelled, Creatinine Cancelled, Estim Creat Clear Calc Cancelled, Est GFR (MDRD) Af Amer Cancelled, Est GFR (MDRD) Non-Af Cancelled, BUN/Creatinine Ratio Cancelled, Glucose Cancelled, Calcium Cancelled, Total Bilirubin Cancelled, AST Cancelled, ALT Cancelled, Alkaline Phosphatase Cancelled, Total Protein Cancelled, Albumin Cancelled, Globulin Cancelled, Albumin/Globulin Ratio Cancelled 12/11/21 04:53: POC Glucose 103 12/11/21 05:02: Sodium 137, Potassium 4.9, Chloride 105, Carbon Dioxide 26.0, Anion Gap 6, BUN 45 H, Creatinine 5.27 H, Estim Creat Clear Calc 5.89, Est GFR (MDRD) Af Amer 10 L, Est GFR (MDRD) Non-Af 8 L, BUN/Creatinine Ratio 8.5 L, Glucose 137 H, Calcium 9.1, Total Bilirubin 0.70, AST 21, ALT 21, Alkaline Phos phatase 111, Total Protein 6.1 L, Albumin 1.8 L, Globulin 4.3 H, Albumin/Globulin Ratio 0.4 L Radiography Diagnostic Testing: Radiology Impression Echocardiogram 12/10/21 08:01 Interpretation Summary Left ventricular systolic function is normal. The estimated ejection fraction is 55 %. The left atrium is mildly enlarged. There is moderate mitral annular calcification. Extension of the mitral annular calcification on the base the posterior mitral valve leaflet. Anterior leaflet diffuse mitral valve thickening. Mild focal mitral valve calcification of the anterior leaflet. Moderately severe (3+) eccentric mitral valve insufficiency. Moderately severe (3+) tricuspid valve insufficiency. Moderate aortic stenosis. Trivial pulmonic valve insufficiency. Small to moderate pericardial effusion. There are no echocardiographic indications of cardiac tamponade. Right ventricular systolic pressure estimated to be 97 mmHg. Severe pulmonary hypertension. Unable to assess diastolic dysfunction. Ordering Physician: Salma Barrett Performed By: Bela Ruiz RCS Chest X-Ray 12/10/21 13:30 IMPRESSION: Small left pleural effusion with left basilar infiltration and/or atelectasis. Electronically Signed: Ridge Luciano MD at 14:00 EDT , Physical Exam Const alert, oriented x3 and no apparent distress HEENT normocephalic and head/scalp atraumatic Mouth: dry mucous membranes Eyes PERRL, EOMs intact bilaterally and conjunctivae normal Neck no lymphadenopathy and supple Resp normal respiratory effort, normal air movement, no retractions, no use of accessory muscles and clear to auscultation bilaterally Cardio regular rate, regular rhythm, S1 normal heart sound, S2 normal heart sound and no murmurs Cardio Narrative: converted to normal sinus rhythm GI normal to inspection, nondistended, normoactive bowel sounds, soft to palpation, non-tender and non-distended Extremity normal to inspection, full ROM and no clubbing, cyanosis or edema Skin General Skin Exam: no breakdown Neuro oriented x3, CN's II-XII intact bilaterally, moves all extremities, no focal motor deficits and no sensory deficits noted Sensorium / Orientation: awake, alert, oriented to person, oriented to place and oriented to time Motor Exam: strength 5/5 throughout Psych affect normal Assessment & Plan Assessment/Plan (1) Hypotension: (2) Paroxysmal atrial fibrillation with RVR: PLAN: Plan #Afib with RVR * on cardizem drip * also given a dose of digoxin by cardiology * converted to normal sinus rhythm * 2D echo: EF of 55%, with moderate aortic stenosis and moderately severe tricuspid valve and eccentric mitral valve insufficiency, as well as RVSP of 97mmHg. * not anticoagulated o/a of anemia * cardiology on board * #shock, likely septic * resolved. NOw off levophed * started on IV cefepime yesterday to provide broad spectrum coverage * blood cultures pending * critical care on board * #C Diff * diarrhea has resolved. * on oral vancomycin * hasn't had any diarrhea since admission * #ELevated troponin * initial troponin was elevated, at 157; trended up to a peak of 164 * 2D echo as above * cardiology on board * Anemia * Hb is 8.1 * reason for anemia is unclear * last Hb in record on 08/01/21 is 12.4 * iron profile showed iron of 69, with iron saturation of 22% and ferritin of 1974. This seems to be an anemia of chronic disease * on pantoprazole drip * #ESRD * nephrology on board for dialysis * on sevelamer * #Hypothyroidism: * on synthroid. TSH is 0.19. free T4 is 1.67 which is high * will repeat on outpatient basis once critical illness has resolved * #Hyperlipidemia: on statin DVT prophylaxis; SCDs Code status: full code * Charges/Coding Visit Charges Inpatient E&M: 80553 Subs Hosp L3
--- NOTE | 2021-12-11 10:36 | CASEMGMT ---
RONAL met with patient's daughter Nancie in patient's room. Nancie confirmed they would like [facility] for patient. RONAL let Nancie know RONAL will work on referral. Jacque Caballero NUT AND BOLT ASSEMBLER MACKENZIE
--- NOTE | 2021-12-11 10:44 | CASEMGMT ---
RONAL called [facility] and spoke with Leatha regarding referral. RONAL told Leatha about the dialysis schedule. Leatha said they would not be able to transport patient every day so they would need family to help. RONAL explained that normally patient's daughter drops her off and [facility]. Leatha said they can look at referral and if family and/or senior center can help with transportation then it would be more likely they could take patient. Leatha told RONAL to please send the referral. RONAL let Leatha know that patient is in ICU so she is not ready yet, but SW will send the referral. RONAL asked Delaney d/c strategy planning consultant to please send referral. SW will also have to monitor patient's therapy notes to make sure patient will be able to get in and out of a vehicle. Jacque Caballero TALENT COORDINATOR MACKENZIE
--- NOTE | 2021-12-11 10:50 | CASEMGMT ---
Discharge Drier And Evaporator Operator Delaney shannon/shahram sales support assistant faxed a referral over to [facility]. Will follow up. Plan: [facility], Waiting Acceptance. Dleaney Johnston Discharge Drier And Evaporator Operator
--- NOTE | 2021-12-11 10:57 | PN.RENAL_ITS ---
Subjective Subjective currently on dialysis,. BP stable. Rate controlled Objective Data Objective Data Vital Signs: Vital Signs Temp Pulse Resp BP Pulse Ox O2 Del Method O2 Flow Rate 97.5 F L 67 21 H 141/52 H 100 Nasal Cannula 1 12/11/21 10:00 12/11/21 10:00 12/11/21 10:00 12/11/21 10:00 12/11/21 10:00 12/11/21 10:00 12/11/21 10:00 Oxygen Flow Rate (L/min) 1 Oxygen Delivery Method Nasal Cannula Weight: 55.5 kg Body Mass Index (BMI) 21.1 Intake & Output: Intake and Output for Last 24 Hours 12/09/21 12/10/21 12/11/21 23:59 23:59 23:59 Intake Total 4101.35 / 4101.35 200 / 200 Output Total 0 / 0 Balance 4101.35 / 4101.35 200 / 200 Lab / Micro Data Result Diagrams: 12/11/21 04:10 12/11/21 05:02 Labs: Laboratory Results - last 24 hr 12/10/21 01:48: Free T4 1.67 H 12/10/21 01:48: Iron 69, TIBC 307, Iron Saturation 22.5, Ferritin 1974 H 12/10/21 10:50: Lactic Acid 0.9 12/10/21 10:50: Blood Type Cancelled, Antibody Screen Cancelled 12/10/21 11:10: Troponin I High Sens 127 H* 12/10/21 11:57: Blood Type Cancelled, Antibody Screen Cancelled 12/10/21 12:25: Blood Type Cancelled, Antibody Screen Cancelled 12/10/21 13:22: Troponin I High Sens 164 H* 12/10/21 13:22: Blood Type A NEGATIVE, Antibody Screen NEGATIVE 12/11/21 04:10: WBC 14.5 H, RBC 2.28 L, Hgb 8.1 L, Hct 26.5 L, MCV 116.2 H, MCH 35.5 H, MCHC 30.6 L, RDW Std Deviation 62.3 H, RDW Coeff of Keri 14.7 H, Plt Count 329, MPV 10.2, Immature Gran % (Auto) 0.800, Neut % (Auto) 84.8 H, Lymph % (Auto) 5.9 L, [place] % (Auto) 7.7, Eos % (Auto) 0.5, Baso % (Auto) 0.3, Absolute Neuts (auto) 12.3 H, Absolute Lymphs (auto) 0.85, Nucleated RBC % 0 12/11/21 04:10: Sodium Cancelled, Potassium Cancelled, Chloride Cancelled, Carbon Dioxide Cancelled, Anion Gap Cancelled, BUN Cancelled, Creatinine Cancelled, Estim Creat Clear Calc Cancelled, Est GFR (MDRD) Af Amer Cancelled, Est GFR (MDRD) Non-Af Cancelled, BUN/Creatinine Ratio Cancelled, Glucose Can celled, Calcium Cancelled, Total Bilirubin Cancelled, AST Cancelled, ALT Cancelled, Alkaline Phosphatase Cancelled, Total Protein Cancelled, Albumin Cancelled, Globulin Cancelled, Albumin/Globulin Ratio Cancelled 12/11/21 04:53: POC Glucose 103 12/11/21 05:02: Sodium 137, Potassium 4.9, Chloride 105, Carbon Dioxide 26.0, Anion Gap 6, BUN 45 H, Creatinine 5.27 H, Estim Creat Clear Calc 5.89, Est GFR (MDRD) Af Amer 10 L, Est GFR (MDRD) Non-Af 8 L, BUN/Creatinine Ratio 8.5 L, Glucose 137 H, Calcium 9.1, Total Bilirubin 0.70, AST 21, ALT 21, Alkaline Phosphatase 111, Total Protein 6.1 L, Albumin 1.8 L, Globulin 4.3 H, Albumin/Globulin Ratio 0.4 L Radiography Diagnostic Testing: Radiology Impression Echocardiogram 12/10/21 08:01 Interpretation Summary Left ventricular systolic function is normal. The estimated ejection fraction is 55 %. The left atrium is mildly enlarged. There is moderate mitral annular calcification. Extension of the mitral annular calcification on the base the posterior mitral valve leaflet. Anterior leaflet diffuse mitral valve thickening. Mild focal mitral valve calcification of the anterior leaflet. Moderately severe (3+) eccentric mitral valve insufficiency. Moderately severe (3+) tricuspid valve insufficiency. Moderate aortic stenosis. Trivial pulmonic valve insufficiency. Small to moderate pericardial effusion. There are no echocardiographic indications of cardiac tamponade. Right ventricular systolic pressure estimated to be 97 mmHg. Severe pulmonary hypertension. Unable to assess diastolic dysfunction. Ordering Physician: Salma Barrett Performed By: Bela Ruiz RCS Chest X-Ray 12/10/21 13:30 IMPRESSION: Small left pleural effusion with left basilar infiltration and/or atelectasis. Electronically Signed: Ridge Luciano MD at 14:00 EDT , Physical Exam Const Orientation / Consciousness: confused Resp clear to auscultation bilaterally Cardio regular rate GI non-tender and non-distended Palpation: soft Extremity no clubbing, cyanosis or edema General Extremity: AV fistula Assessment & Plan Assessment/Plan (1) ESRD (end stage renal disease) on dialysis: PLAN: dialysis MWF with AVF right upper arm. Currently on dialysis, proceeding w/o incident (2) Hypotension: PLAN: resolvedr (3) Atrial fibrillation: PLAN: rate controlled, cardio following (4) Clostridioides difficile diarrhea: PLAN: leukocytosis improving, vanco po (5) Diabetes: (6) HTN (hypertension): (7) Heart disease: (8) Dehydration: PLAN: iv fluids (9) Anemia: PLAN: epo on dialysis
--- NOTE | 2021-12-11 11:16 | PN.CARD_ITS ---
Subjective Subjective The patient remains in the ICU. She denies ongoing chest discomfort or difficulty breathing. She does appear to be very sensitive to movement in her bed as demonstrated by her verbal moaning and groaning sounds. Objective Data Vital Signs: Vital Signs Temp Pulse Resp BP Pulse Ox O2 Del Method O2 Flow Rate 97.5 F L 64 23 H 146/47 H 100 Nasal Cannula 1 12/11/21 10:00 12/11/21 11:08 12/11/21 11:00 12/11/21 11:00 12/11/21 11:00 12/11/21 11:00 12/11/21 11:00 Oxygen Flow Rate (L/min) 1 Oxygen Delivery Method Nasal Cannula Weight: 122 lb 5.705 oz Body Mass Index (BMI) 21.1 Intake & Output: Intake and Output for Last 24 Hours 12/09/21 12/10/21 12/11/21 23:59 23:59 23:59 Intake Total 4101.35 / 4101.35 200 / 200 Output Total 0 / 0 Balance 4101.35 / 4101.35 200 / 200 Lab / Micro Data Result Diagrams: 12/11/21 04:10 12/11/21 05:02 Labs: Laboratory Results - last 24 hr 12/10/21 01:48: Free T4 1.67 H 12/10/21 01:48: Iron 69, TIBC 307, Iron Saturation 22.5, Ferritin 1974 H 12/10/21 10:50: Lactic Acid 0.9 12/10/21 10:50: Blood Type Cancelled, Antibody Screen Cancelled 12/10/21 11:10: Troponin I High Sens 127 H* 12/10/21 11:57: Blood Type Cancelled, Antibody Screen Cancelled 12/10/21 12:25: Blood Type Cancelled, Antibody Screen Cancelled 12/10/21 13:22: Troponin I High Sens 164 H* 12/10/21 13:22: Blood Type A NEGATIVE, Antibody Screen NEGATIVE 12/11/21 04:10: WBC 14.5 H, RBC 2.28 L, Hgb 8.1 L, Hct 26.5 L, MCV 116.2 H, MCH 35.5 H, MCHC 30.6 L, RDW Std Deviation 62.3 H, RDW Coeff of Keri 14.7 H, Plt Count 329, MPV 10.2, Immature Gran % (Auto) 0.800, Neut % (Auto) 84.8 H, Lymph % (Auto) 5.9 L, Owen % (Auto) 7.7, Eos % (Auto) 0.5, Baso % (Auto) 0.3, Absolute Neuts (auto) 12.3 H, Absolute Lymphs (auto) 0.85, Nucleated RBC % 0 12/11/21 04:10: Sodium Cancelled, Potassium Cancelled, Chloride Cancelled, Carbo n Dioxide Cancelled, Anion Gap Cancelled, BUN Cancelled, Creatinine Cancelled, Estim Creat Clear Calc Cancelled, Est GFR (MDRD) Af Amer Cancelled, Est GFR (MDRD) Non-Af Cancelled, BUN/Creatinine Ratio Cancelled, Glucose Cancelled, Calcium Cancelled, Total Bilirubin Cancelled, AST Cancelled, ALT Cancelled, Alkaline Phosphatase Cancelled, Total Protein Cancelled, Albumin Cancelled, Globulin Cancelled, Albumin/Globulin Ratio Cancelled 12/11/21 04:53: POC Glucose 103 12/11/21 05:02: Sodium 137, Potassium 4.9, Chloride 105, Carbon Dioxide 26.0, Anion Gap 6, BUN 45 H, Creatinine 5.27 H, Estim Creat Clear Calc 5.89, Est GFR (MDRD) Af Amer 10 L, Est GFR (MDRD) Non-Af 8 L, BUN/Creatinine Ratio 8.5 L, Glucose 137 H, Calcium 9.1, Total Bilirubin 0.70, AST 21, ALT 21, Alkaline Phosphatase 111, Total Protein 6.1 L, Albumin 1.8 L, Globulin 4.3 H, Albumin/Globulin Ratio 0.4 L Cardiology Labs/Tests 12/10/21 01:48: Iron 69, TIBC 307, Iron Saturation 22.5, Ferritin 1974 H 12/10/21 10:50: Lactic Acid 0.9 12/11/21 04:10: WBC 14.5 H, RBC 2.28 L, Hgb 8.1 L, Hct 26.5 L, MCV 116.2 H, MCH 35.5 H, MCHC 30.6 L, Plt Count 329, MPV 10.2, Immature Gran % (Auto) 0.800, Neut % (Auto) 84.8 H, Lymph % (Auto) 5.9 L, Owen % (Auto) 7.7, Eos % (Auto) 0.5, Baso % (Auto) 0.3, Absolute Neuts (auto) 12.3 H, Nucleated RBC % 0 12/11/21 04:10: Sodium Cancelled, Potassium Cancelled, Chloride Cancelled, Carbon Dioxide Cancelled, Anion Gap Cancelled, BUN Cancelled, Creatinine Cance lled, Est GFR (MDRD) Af Amer Cancelled, Est GFR (MDRD) Non-Af Cancelled, BUN/Creatinine Ratio Cancelled, Glucose Cancelled, Calcium Cancelled, Total Bilirubin Cancelled 12/11/21 05:02: Sodium 137, Potassium 4.9, Chloride 105, Carbon Dioxide 26.0, Anion Gap 6, BUN 45 H, Creatinine 5.27 H, Est GFR (MDRD) Af Amer 10 L, Est GFR (MDRD) Non-Af 8 L, BUN/Creatinine Ratio 8.5 L, Glucose 137 H, Calcium 9.1, Total Bilirubin 0.70 Rhythm: Sinus rhythm Radiography Diagnostic Testing: Radiology Impression Echocardiogram 12/10/21 08:01 Interpretation Summary Left ventricular systolic function is normal. The estimated ejection fraction is 55 %. The left atrium is mildly enlarged. There is moderate mitral annular calcification. Extension of the mitral annular calcification on the base the posterior mitral valve leaflet. Anterior leaflet diffuse mitral valve thickening. Mild focal mitral valve calcification of the anterior leaflet. Moderately severe (3+) eccentric mitral valve insufficiency. Moderately severe (3+) tricuspid valve insufficiency. Moderate aortic stenosis. Trivial pulmonic valve insufficiency. Small to moderate pericardial effusion. There are no echocardiographic indications of cardiac tamponade. Right ventricular systolic pressure estimated to be 97 mmHg. Severe pulmonary hypertension. Unable to assess diastolic dysfunction. __ Ordering Physician: Salma Barrett Performed By: Bela Ruiz RCS Chest X-Ray 12/10/21 13:30 IMPRESSION: Small left pleural effusion with left basilar infiltration and/or atelectasis. Electronically Signed: Ridge Luciano MD at 14:00 EDT , Physical Exam Const no apparent distress Orientation / Consciousness: awake HEENT normocephalic, head/scalp atraumatic and hearing grossly normal bilaterally Eyes PERRL, EOMs intact bilaterally, conjunctivae normal and no scleral icterus Neck full ROM, supple and no JVD Carotids: normal carotid upstroke Resp normal respiratory effort and clear to auscultation bilaterally Cardio Rate: regular rate Rhythm: regular rhythm Heart Sounds: S1 normal, S2 normal and murmur systolic III/ soft mid left sternal border and apex GI normal to inspection, nondistended, normoactive bowel sounds Extremity no pedal edema Skin no rashes or lesions noted Assessment & Plan Assessment/Plan (1) Elevated troponin: PLAN: The patient has an elevated high-sensitivity troponin I level. This may be a type II event. The etiology may be multifactorial. There are concerns this could be related to her underlying chronic renal insufficiency as she is on chronic hemodialysis. There are concerns this could be related to an underlying infectious disease issue with respect to her C. difficile toxin and concerns of a sepsis syndrome. There are concerns this could be related to her underlying heart disease which is unclear with respect to the exact etiology based upon information from the patient and her daughter. There are concerns as to whether or not her atrial fibrillation may be exacerbating her underlying conditions. At the present time she does not have any acute changes on her ECG. She was evaluated in the ICU. She did receive temporary IV vasopressor support. That has now been discontinued. She has undergone noninvasive cardiovascular evaluation with a transthoracic echocardiogram with the results as noted. At the present time she will continue to be monitored. She will continue medical management/support as deemed appropriate. From a cardiovascular standpoint she does not appear to be an ideal candidate for any additional cardiovascular diagnostic studies/intervention. (2) Atrial fibrillation: PLAN: She was noted to be in sinus rhythm originally. She subsequently had alteration in atrial fibrillation with RVR. Her atrial fibrillation may be multifactorial in etiology. This can be based upon a combination of her age, history of hypertension, history of heart di sease , as well as being exacerbated by her underlying infectious disease issues, etc. She did receive 1 dose of digitalis and subsequently IV amiodarone. She has been noted to have spontaneous conversion to sinus rhythm. The tentative plan will be to change her IV amiodarone to oral amiodarone to hopefully maintain sinus rhythm. She has undergone transthoracic echocardiogram as noted. She will continue conservative cardiovascular medical therapy. (3) Valvular heart disease: PLAN: She has been found to have evidence on examination of a cardiac murmur. Her transthoracic echocardiogram is noted. It does demonstrates the appearance of significant MR/TR. These findings may be contributing factors to her atrial dysrhythmia. At the moment based upon her age, her mental status/dementia, and her multiple comorbidities she does not appear to be an ideal candidate for further cardiovascular diagnostic studies/intervention. (4) Hypotension: PLAN: Her blood pressure appears to be improved at this time. She will continue medical management/support. (5) Clostridioides difficile diarrhea: PLAN: The patient will need to continue her C. difficile precautions. She will continue antibiotic therapy as deemed appropriate. (6) Chronic renal failure, stage 5: PLAN: The patient has a long standing history of chronic renal failure. The etiology is unclear. She will need to continue to be followed by nephrology. (7) Hemodialysis status: PLAN: The patient was reported as being unable to complete her hemodialysis yesterday based upon concerns of her noncardiac issues. Nephrology will be needed to assist in her ongoing renal function, etc. Addt'l Comments The aforementioned information was conveyed to Dr. Barrett of the [facility] hospitalist group. This note was generated using a voice recognition system and there may be incorrect words, spelling or punctuation that were not noted when reviewing the office note prior to saving.
[2021-12-11] MEDS: Epoetin Alfa epbx 10,000 UNITS/ML 2000 UNIT IV (11:29)
[2021-12-11 12:00] LABS: Phosphorus 6.4 mg/dL (2.5-4.9)
[2021-12-11] MEDS: Acetaminophen 325 MG Tablet 650 MG PO (12:07)
--- NOTE | 2021-12-11 12:30 | DIALYSIS ---
HD x 3.25 hours complete. Tolerated tx well. No fluid removed. Used right arm access. Hawthorn removed post tx and pressure applied x 10 minutes. Hemostasis achieved. Fresh gauze and tape applied. See tx sheet for more details. Report was given to JORGE Quiñonez.
--- NOTE | 2021-12-11 12:57 | CASEMGMT ---
RN GIGI received message from ICU nurse regard Carestar e learning manager Debra Barron for discharge planning needs. Number for Debra is [phone]
--- NOTE | 2021-12-11 14:29 | CASEMGMT ---
Discharge Nurse Staff [facility] Delaney dtammy graduate research assistant called [facility]. Admissions stepped out. Research Computing Specialist asked Delaney to call back in a half an hour. Will follow up. Plan: [facility], Waiting Acceptance. Delaney Johnston Discharge Nurse Staff [facility]
[2021-12-11] MEDS: Amiodarone 360 MG in Dextrose 5% Viaflo Bag 192.8 ML 33.3 MG CONT INF (14:41)
--- NOTE | 2021-12-11 15:07 | CASEMGMT ---
Discharge Oriental Rug Stretcher Delaney talked to [facility] at [facility]. Le[facility] can accept patient. [facility] and Delaney and RONAL Santillan will work on Dialysis transportation. Patient has a chair time of 0700. Will follow up. Plan: [facility], Accepted. Delaney Johnston Discharge [employer]
[2021-12-11] MEDS: Atorvastatin Calcium 80 MG Tablet PO (21:15)
[2021-12-12] VITALS (24 sets, daily range): BP systolic 88–124; BP diastolic 43–76; PULSE 59–119; RESP 16–27; TEMP 37–37.8; O2SAT 90–99
--- NOTE | 2021-12-12 06:48 | PCM.PN.INT ---
Assessment & Plan Assessment/Plan (1) Paroxysmal atrial fibrillation with RVR: PLAN: Plan RECOMMENDATIONS: 1. Cefepime can be discontinued from my perspective. 2. Continue p.o. vancomycin, given recent history of C. difficile colitis. 3. Rate/rhythm control strategy per cardiology. 4. Wean supplemental oxygen for saturations greater than 90%. 5. Ongoing dialysis support per nephrology recommendations. 6. Encourage incentive spirometer use. 7. The patient is medically stable for transfer out of the intensive care unit. IMPRESSIONS: 1. Hypovolemic versus distributive shock Likely secondary to GI losses in the setting of C. difficile colitis. Fluid management has been conservative in light of her hypoalbuminemia and end-stage renal disease. Regardless, the patient has been weaned from vasopressor support and remains hemodynamically stable. Given negative blood cultures and lack of alternative infectious etiology, cefepime can be discontinued from my perspective. Continue p.o. vancomycin to address previously established diagnosis of C. difficile colitis. 2. Anemia of unclear etiology The patient presented to the hospital with worsened anemia from baseline. However, her counts have remained stable without the need for transfusion of blood products. Plan to continue to monitor H&H daily and transfuse if hemoglobin drops below 7 g/dL. Continue PPI therapy as ordered. 3. Troponin elevation/atrial fibrillation Likely secondary to demand ischemia. Cardiology is currently following. Echocardiogram was unrevealing. Continue amiodarone per recommendations. 4. End-stage renal disease on hemodialysis Nephrology is following to assist with hemodialysis needs. 5. Advanced age/dementia/hypothyroidism/hyperlipidemia Complicates care, management, recovery and prognosis. Continue home medications as indicated. This note was generated with [employer] dictation software. It may contain incorrect words, spelling, and punctuation that were not noted in checking the note before signing. Subjective Subjective The patient was seen and examined at the bedside this morning. Events from the last 24 hours have been reviewed. The patient is currently afebrile, hemodynamically stable and maintaining appropriate oxygen saturations on 1 L/min via nasal cannula. The patient is documented to be overall net +5.5 L for the hospitalization. The patient remains confused, yelling out this morning. Objective Data Objective Data The patient's most recent lab work, culture data and imaging studies have all been personally reviewed. Surface echocardiogram demonstrated normal LV size with an ejection fraction of 55%. Moderately severe mitral valve insufficiency was noted along with moderately severe tricuspid valve insufficiency. Right ventricular systolic pressure was estimated to be 97 mmHg. Moderate aortic stenosis was also noted. Blood cultures are currently pending. Vital Signs: Vital Signs Temp Pulse Resp BP Pulse Ox O2 Del Method O2 Flow Rate 98.6 F 100 23 H 121/65 H 92 Nasal Cannula 1 12/12/21 00:00 12/12/21 06:00 12/12/21 06:00 12/12/21 06:00 12/12/21 06:00 12/12/21 06:00 12/12/21 06:00 Oxygen Flow Rate (L/min) 1 Oxygen Delivery Method Nasal Cannula Weight: 122 lb 5.705 oz Body Mass Index (BMI) 21.1 Intake & Output: Intake and Output for Last 24 Hours 12/10/21 12/11/21 12/12/21 23:59 23:59 23:59 Intake Total 4101.35 / 4101.35 1429.62 / 1429.62 Output Total 0 / 0 Balance 4101.35 / 4101.35 1429.62 / 1429.62 Lab / Micro Data Attestation: I reviewed the patient's lab results. Result Diagrams: 12/12/21 07:57 12/12/21 07:57 Labs: Laboratory Results - last 24 hr 12/11/21 05:02: Phosphorus 6.4 H Radiography Diagnostic Testing: Radiology Impression Echocardiogram 12/10/21 08:01 Interpretation Summary Left ventricular systolic function is normal. The estimated ejection fraction is 55 %. The left atrium is mildly enlarged. There is moderate mitral annular calcification. Extension of the mitral annular calcification on the base the posterior mitral valve leaflet. Anterior leaflet diffuse mitral valve thickening. Mild focal mitral valve calcification of the anterior leaflet. Moderately severe (3+) eccentric mitral valve insufficiency. Moderately severe (3+) tricuspid valve insufficiency. Moderate aortic stenosis. Trivial pulmonic valve insufficiency. Small to moderate pericardial effusion. There are no echocardiographic indications of cardiac tamponade. Right ventricular systolic pressure estimated to be 97 mmHg. Severe pulmonary hypertension. Unable to assess diastolic dysfunction. Ordering Physician: Salma Barrett Performed By: Bela Ruiz RCS Chest X-Ray 12/10/21 13:30 IMPRESSION: Small left pleural effusion with left basilar infiltration and/or atelectasis. Electronically Signed: Rideg Luciano MD at 14:00 EDT , Physical Exam Const alert and no apparent distress Constitutional Narrative: Frequently yelling out for help. Orientation / Consciousness: confused and disoriented HEENT normocephalic and head/scalp atraumatic Eyes PERRL and EOMs intact bilaterally Neck supple General: trachea midline Chest inspection of chest normal Resp normal respiratory effort Auscultation: Negative for rales, rhonchi or wheezes Cardio regular rate, regular rhythm, S1 normal heart sound and S2 normal heart sound GI normal to inspection, nondistended, normoactive bowel sounds Extremity no clubbing, cyanosis or edema Skin no rashes or lesions noted Neuro moves all extremities and no focal motor deficits Psych Activity / Motor Behavior: restless Charges/Coding Visit Charges Inpatient E&M: 59793 Subs Hosp L2
[2021-12-12] MEDS: Levothyroxine 112 MCG Tablet PO (07:28)
[2021-12-12] MEDS: Vancomycin 125 MG/5 ML Susp PO.SYRINGE PO ×3 (07:28→16:54)
[2021-12-12 08:12] LABS: Absolute Lymphocyte Count 0.75 X10^3/uL (0.83-4.51); Absolute Neutrophil Count 14.6 X10^3/uL (2.0-7.7); Basophil# 0.05 X10^3/uL; Basophil% 0.3 % (0-1); Eosinophil# 0.06 X10^3/uL; Eosinophils% 0.4 % (0-5); Hematocrit 24.3 % (37-47); Hemoglobin 8.1 g/dL (12.0-15.0); Lymphocyte # 0.75 X10^3/ul (0.83-4.51); Lymphocyte % 4.5 % (19-41); Mean Corp Hgb Conc 33.3 g/dL (32-36); Mean Corpuscular Hgb 36.7 pg (27.0-32.0); Mean Platelet Vol. 9.9 fl (6.2-12.0); Monocyte# 1.24 X10^3/uL; Monocyte% 7.4 % (0-10); NRBC Flagged by Analyzer 0 % (0-5); Neutrophil # 14.62 X10^3/uL (2.7-7.7); Platelet Count 357 K/mm3 (150-450); RBC Distribution Width CV 15.1 % (11.6-14.6); RBC Distribution Width SD 59.7 fl (35.1-43.9); Red Blood Count 2.21 M/mm3 (4.2-5.4); White Blood Count 16.8 K/mm3 (4.4-11.0)
--- NOTE | 2021-12-12 08:18 | PN.CARD_ITS ---
Subjective Subjective The patient is awake this morning. She denies any ongoing chest discomfort or difficulty breathing or obvious sensation of her atrial fibrillation/elevated heart rate. Objective Data Vital Signs: Vital Signs Temp Pulse Resp BP Pulse Ox O2 Del Method O2 Flow Rate 98.6 F 108 H 26 H 116/59 L 90 Nasal Cannula 1 12/12/21 00:00 12/12/21 07:00 12/12/21 07:00 12/12/21 07:00 12/12/21 07:00 12/12/21 07:00 12/12/21 07:00 Oxygen Flow Rate (L/min) 1 Oxygen Delivery Method Nasal Cannula Weight: 124 lb 12.506 oz Body Mass Index (BMI) 21.1 Intake & Output: Intake and Output for Last 24 Hours 12/10/21 12/11/21 12/12/21 23:59 23:59 23:59 Intake Total 4101.35 / 4101.35 1429.62 / 1429.62 0 / 0 Output Total 0 / 0 Balance 4101.35 / 4101.35 1429.62 / 1429.62 0 / 0 Lab / Micro Data Result Diagrams: 12/11/21 04:10 12/11/21 05:02 Labs: Laboratory Results - last 24 hr 12/11/21 05:02: Phosphorus 6.4 H Micro: Microbiology 12/10/21 11:10 Blood Culture (Wb) - Left Hand Blood Culture - Preliminary No growth in 48 hours. 12/10/21 10:50 Blood Culture (Wb) - Left Wrist Blood Culture - Preliminary No growth in 48 hours. Cardiology Labs/Tests 12/11/21 05:02: Phosphorus 6.4 H Rhythm: Atrial fibrillation Physical Exam Const no apparent distress Orientation / Consciousness: awake HEENT normocephalic, head/scalp atraumatic and hearing grossly normal bilaterally Eyes PERRL, EOMs intact bilaterally, conjunctivae normal and no scleral icterus Neck full ROM, supple and no JVD Carotids: normal carotid upstroke Resp normal respiratory effort and clear to auscultation bilaterally Cardio Rate: regular rate Rhythm: regular rhythm Heart Sounds: S1 normal, S2 normal and murmur systolic III/ soft mid left sternal border and apex GI normal to inspection, nondistended, normoactive bowel sounds Extremity no pedal edema Skin no rashes or lesions noted Assessment & Plan Assessment/Plan (1) Elevated troponin: PLAN: The patient has an elevated high-sensitivity troponin I level. This may be a type II event. The etiology may be multifactorial. There are concerns this could be related to her underlying chronic renal insufficiency as she is on chronic hemodialysis. There are concerns this could be related to an underlying infectious disease issue with respect to her C. difficile toxin and concerns of a sepsis syndrome. There are concerns this could be related to her underlying heart disease which is unclear with respect to the exact etiology based upon information from the patient and her daughter. There are concerns as to whether or not her atrial fibrillation may be exacerbating her underlying conditions. At the present time she does not have any acute changes on her ECG. She was evaluated in the ICU. She did receive temporary IV vasopressor support. That has now been discontinued. She has undergone noninvasive cardiovascular evaluation with a transthoracic echocardiogram with the results as noted. At the present time she will continue to be monitored. She will continue medical management/support as deemed appropriate. From a cardiovascular standpoint she does not appear to be an ideal candidate for any additional cardiovascular diagnostic studies/intervention. (2) Atrial fibrillation: PLAN: She was noted to be in sinus rhythm originally. She subsequently had alteration in atrial fibrillation with RVR. Her atrial fibrillation may be multifactorial in etiology. This can be based upon a combination of her age, history of hypertension, history of heart disease , as well as being exacerbated by her underlying infectious disease issues, etc. She did receive 1 dose of digitalis and subsequently IV amiodarone. She has been noted to have spontaneous conversion to sinus rhythm. However, she subsequently returned to atrial fibrillation. She has remained on IV amiodarone. As she remains in atrial fibrillation an attempt will be made to change her IV amiodarone to oral amiodarone and to add a rate limiting agent as long as her heart rate and blood pressure tolerates and continue to follow her rhythm. She has undergone transthoracic echocardiogram as noted. She will continue conservative cardiovascular medical therapy. (3) Valvular heart disease: PLAN: She has been found to have evidence on examination of a cardiac murmur. Her transthoracic echocardiogram is noted. It does demonstrates the appearance of significant MR/TR. These findings may be contributing factors to her atrial dysrhythmia. At the moment based upon her age, her mental status/dementia, and her multiple comorbidities she does not appear to be an ideal candidate for further c ardiovascular diagnostic studies/intervention. (4) Hypotension: PLAN: Her blood pressure appears to be improved at this time. She will continue medical management/support. (5) Clostridioides difficile diarrhea: PLAN: The patient will need to continue her C. difficile precautions. She will continue antibiotic therapy as deemed appropriate. (6) Chronic renal failure, stage 5: PLAN: The patient has a long standing history of chronic renal failure. The etiology is unclear. She will need to continue to be followed by nephrology. (7) Hemodialysis status: PLAN: The patient was reported as being unable to complete her hemodialysis yesterday based upon concerns of her noncardiac issues. Nephrology will be needed to assist in her ongoing renal function, etc. Addt'l Comments This note was generated using a voice recognition system and there may be incorrect words, spelling or punctuation that were not noted when reviewing the office note prior to saving.
[2021-12-12] MEDS: Amiodarone 200 MG Tablet PO ×3 (08:36→21:31)
[2021-12-12] MEDS: Metoprolol Tartrate 25 MG Tablet 12.5 MG PO (08:37)
[2021-12-12] MEDS: Vitamin B Comp W-C Capsule 1 CAP PO (08:40)
[2021-12-12] MEDS: SEVELAMER CARBONATE 800 MG TABLET PO ×2 (08:40→16:54)
[2021-12-12] MEDS: Nepro with Carbsteady 237 ML Liquid 120 ML PO ×3 (08:42→22:14)
[2021-12-12 08:50] LABS: ALB/GLOB Ratio 0.4 RATIO (0.9-2.4); AST(SGOT) 20 U/L (15-37); Alanine Aminotransfer ALT/SGPT 21 U/L (13-56); Albumin, Serum 1.7 g/dL (3.2-5.0); Alkaline Phosphatase 142 U/L (45-117); Anion Gap 6 (5-15); BUN 24 mg/dL (7-18); BUN/Creat Ratio 7.1 RATIO (10-20); Calcium,Total 8.7 mg/dL (8.5-10.1); Chloride 103 mmol/L (98-107); Creatinine, Serum 3.39 mg/dL (0.55-1.02); EST Glomerular Filtration Rate 14 mL/min (>60); Est Glom Filt Rate - Afr Amer 17 mL/min (>60); Estimated Creatinine Clearance 9.16 ml/min; Globulin 4.3 g/dL (2.2-4.2); Glucose 159 mg/dL (74-106); Potassium 3.8 mmol/L (3.5-5.1); Sodium Level 138 mmol/L (136-145)
--- NOTE | 2021-12-12 10:27 | CASEMGMT ---
RONAL called [facility] and they would not be able to transport patient from dialysis anymore if patient goes to a [facility]. Jacque MANN
--- NOTE | 2021-12-12 11:55 | PN.HOSP_ITS ---
Subjective Subjective Patient seen and examined. She had no active complaints and had an uneventful night. She did go into afib again overnight, but had converted to normal sinus rhythm this morning. She is off the amiodarone drip. Objective Data Objective Data Vital Signs: Vital Signs Temp Pulse Resp BP Pulse Ox O2 Del Method O2 Flow Rate 99.1 F 61 22 H 108/43 L 96 Nasal Cannula 1 12/12/21 10:00 12/12/21 10:00 12/12/21 10:00 12/12/21 10:00 12/12/21 10:00 12/12/21 10:00 12/12/21 10:00 Oxygen Flow Rate (L/min) 1 Oxygen Delivery Method Nasal Cannula Weight: 124 lb 12.506 oz Body Mass Index (BMI) 21.1 Intake & Output: Intake and Output for Last 24 Hours 12/10/21 12/11/21 12/12/21 23:59 23:59 23:59 Intake Total 4101.35 / 4101.35 1429.62 / 1429.62 790 / 790 Output Total 0 / 0 Balance 4101.35 / 4101.35 1429.62 / 1429.62 790 / 790 Lab / Micro Data Result Diagrams: 12/12/21 07:57 12/12/21 07:57 Labs: Laboratory Results - last 24 hr 12/11/21 05:02: Phosphorus 6.4 H 12/12/21 07:57: WBC 16.8 H, RBC 2.21 L, Hgb 8.1 L, Hct 24.3 L, MCV 110.0 H D, MCH 36.7 H, MCHC 33.3 D, RDW Std Deviation 59.7 H, RDW Coeff of Keri 15.1 H, Plt Count 357, MPV 9.9, Immature Gran % (Auto) 0.400, Neut % (Auto) 87.0 H, Lymph % (Auto) 4.5 L, [place] % (Auto) 7.4, Eos % (Auto) 0.4, Baso % (Auto) 0.3, Absolute Neuts (auto) 14.6 H, Absolute Lymphs (auto) 0.75 L, Nucleated RBC % 0 12/12/21 07:57: Sodium 138, Potassium 3.8, Chloride 103, Carbon Dioxide 29.0, Anion Gap 6, BUN 24 H, Creatinine 3.39 H, Estim Creat Clear Calc 9.16, Est GFR (MDRD) Af Amer 17 L, Est GFR (MDRD) Non-Af 14 L, BUN/Creatinine Ratio 7.1 L, Glucose 159 H, Calcium 8.7, Total Bilirubin 0.80, AST 20, ALT 21, Alkaline Phosphatase 142 H, Total Protein 6.0 L, Albumin 1.7 L, Globulin 4.3 H, Albumin/Globulin Ratio 0.4 L Micro: Microbiology 12/10/21 11:10 Blood Culture (Wb) - Left Hand Blood Culture - Preliminary No growth in 48 hours. 12/10/21 10:50 Blood Culture (Wb) - Left Wrist Blood Culture - Preliminary No growth in 48 hours. Physical Exam Const alert, oriented x3 and no apparent distress HEENT normocephalic, head/scalp atraumatic and moist oral mucous membranes Head and Scalp: normocephalic Mouth: oral and palatal mucosa normal Eyes PERRL, EOMs intact bilaterally and conjunctivae normal Neck no lymphadenopathy and supple Resp normal respiratory effort, normal air movement, no retractions, no use of accessory muscles and clear to auscultation bilaterally Cardio regular rate, regular rhythm, S1 normal heart sound, S2 normal heart sound and no murmurs GI normal to inspection, nondistended, normoactive bowel sounds, soft to palpation, non-tender and non-distended Extremity normal to inspection, full ROM and no clubbing, cyanosis or edema Skin General Skin Exam: no breakdown Neuro oriented x3, CN's II-XII intact bilaterally, moves all extremities, no focal motor deficits and no sensory deficits noted Sensorium / Orientation: awake, alert, oriented to person, oriented to place and oriented to time Coordination / Balance: [id number] test normal Motor Exam: strength 5/5 throughout Psych affect normal Assessment & Plan Assessment/Plan (1) Hypotension: (2) Paroxysmal atrial fibrillation with RVR: PLAN: Plan #Afib with RVR * off amiodarone drip and now on oral amiodarone as well as metoprolol * converted to normal sinus rhythm * 2D echo: EF of 55%, with moderate aortic stenosis and moderately severe tricuspid valve and eccentric mitral valve insufficiency, as well as RVSP of 97mmHg. * not anticoagulated o/a of anemia * cardiology on board * #shock, likely septic * resolved. NOw off levophed * on IV cefepime. Blood cultures negative. Will dc cefepime as no clear source of infecdtion * critical care on board * #C Diff * diarrhea has resolved. * on oral vancomycin; to complete a 10 day course * hasn't had any diarrhea since admission * #ELevated troponin * initial troponin was elevated, at 157; trended up to a peak of 164 * 2D echo as above * cardiology on board; conservative management for now * Anemia * Hb is 8.1 * reason for anemia is unclear * last Hb in record on 08/01/21 is 12.4 * iron profile showed iron of 69, with iron saturation of 22% and ferritin of 1974. This seems to be an anemia of chronic disease * on pantoprazole drip * #ESRD * nephrology on board for dialysis * on sevelamer * #Hypothyroidism: * on synthroid. TSH is 0.19. free T4 is 1.67 which is high * will repeat on outpatient basis once critical illness has resolved * #Hyperlipidemia: on statin DVT prophylaxis; SCDs Code status: full code Disposition: transfer out of ICU to PCU * Charges/Coding Visit Charges Inpatient E&M: 23375 Subs Hosp L2
[2021-12-12] MEDS: Ondansetron 4 MG/2 ML Vial IV (12:18)
--- NOTE | 2021-12-12 16:37 | CASEMGMT ---
RONLA spoke with patient's daughter Lorenza. RONAL let her know that [facility] is able to take patient clinically, but transportation to dialysis is the problem. [facility] cannot transport patient every time. RONAL told Lorenza that patient is weak right now so RONAL is not sure if she can get in and out of a car. Lorenza feels confident she can still transport patient. [facility] staff can help get her in the car and Rolly[facility] can help get patient out of the car. RONAL let her know RONAL will talk with [facility] about what transports they are able to do. Patient's daughter asked that RONAL keep her updated. RONAL will talk with [facility] tomorrow as admissions is gone for the day. Jacque Caballero TAX ASSESSOR MACKENZIE
[2021-12-12] MEDS: Acetaminophen 325 MG Tablet 650 MG PO (16:53)
[2021-12-12] MEDS: Atorvastatin Calcium 80 MG Tablet PO (21:31)
[2021-12-13] VITALS (11 sets, daily range): BP systolic 103–143; BP diastolic 48–91; PULSE 53–100; RESP 12–17; TEMP 36.3–36.7; O2SAT 94–99
[2021-12-13] MEDS: Vancomycin 125 MG/5 ML Susp PO.SYRINGE PO ×5 (00:13→23:36)
[2021-12-13] MEDS: Levothyroxine 112 MCG Tablet PO (05:59)
[2021-12-13] MEDS: Amiodarone 200 MG Tablet PO ×3 (05:59→20:34)
--- NOTE | 2021-12-13 07:07 | PCM.PN.INT ---
Assessment & Plan Assessment/Plan (1) Paroxysmal atrial fibrillation with RVR: PLAN: Plan RECOMMENDATIONS: 1. Continue p.o. vancomycin, given recent history of C. difficile colitis. 2. Rate/rhythm control strategy per cardiology. 3. Wean supplemental oxygen for saturations greater than 90%. 4. Ongoing dialysis support per nephrology recommendations. 5. Encourage incentive spirometer use. 6. Given the patient's lack of further ICU or pulmonary needs, will sign off. Please call with any additional questions. IMPRESSIONS: 1. Hypovolemic versus distributive shock Likely secondary to GI losses in the setting of C. difficile colitis. Fluid management has been conservative in light of her hypoalbuminemia and end-stage renal disease. Regardless, the patient has been weaned from vasopressor support and remains hemodynamically stable. Given negative blood cultures and lack of alternative infectious etiology, IV antibiotics were discontinued. Continue p.o. vancomycin to address previously established diagnosis of C. difficile colitis. 2. Anemia of unclear etiology The patient presented to the hospital with worsened anemia from baseline. However, her counts have remained stable without the need for transfusion of blood products. Plan to continue to monitor H&H daily and transfuse if hemoglobin drops below 7 g/dL. Continue PPI therapy as ordered. 3. Troponin elevation/atrial fibrillation Likely secondary to demand ischemia. Cardiology is currently following. Echocardiogram was unrevealing. Continue amiodarone per recommendations. 4. End-stage renal disease on hemodialysis Nephrology is following to assist with hemodialysis needs. 5. Advanced age/dementia/hypothyroidism/hyperlipidemia Complicates care, management, recovery and prognosis. Continue home medications as indicated. This note was generated with [employer] dictation software. It may contain incorrect words, spelling, and punctuation that were not noted in checking the note before signing. Subjective Subjective The patient was seen and examined at the bedside this morning. Events from the last 24 hours have been reviewed. The patient is currently afebrile and hemodynamically stable. She is documented to be overall net +6.8 L for the hospitalization. Objective Data Objective Data The patient's most recent lab work, culture data and imaging studies have all been personally reviewed. Surface echocardiogram demonstrated normal LV size with an ejection fraction of 55%. Moderately severe mitral valve insufficiency was noted along with moderately severe tricuspid valve insufficiency. Right ventricular systolic pressure was estimated to be 97 mmHg. Moderate aortic stenosis was also noted. Blood cultures have demonstrated no growth to date. Vital Signs: Vital Signs Temp Pulse Resp BP Pulse Ox O2 Del Method O2 Flow Rate 97.8 F 68 16 117/48 L 94 Nasal Cannula 3 12/13/21 04:00 12/13/21 04:00 12/13/21 04:00 12/13/21 04:00 12/13/21 04:00 12/13/21 04:00 12/13/21 04:00 Oxygen Flow Rate (L/min) 3 Oxygen Delivery Method Nasal Cannula Weight: 123 lb 14.397 oz Body Mass Index (BMI) 21.1 Intake & Output: Intake and Output for Last 24 Hours 12/11/21 12/12/21 12/13/21 23:59 23:59 23:59 Intake Total 1429.62 / 1429.62 1126.25 / 1176.25 160 / 160 Output Total 0 / 0 0 / 0 Balance 1429.62 / 1429.62 1126.25 / 1176.25 160 / 160 Lab / Micro Data Attestation: I reviewed the patient's lab results. Result Diagrams: 12/12/21 07:57 12/12/21 07:57 Labs: Laboratory Results - last 24 hr 12/12/21 07:57: WBC 16.8 H, RBC 2.21 L, Hgb 8.1 L, Hct 24.3 L, MCV 110.0 H D, MCH 36.7 H, MCHC 33.3 D, RDW Std Deviation 59.7 H, RDW Coeff of Keri 15.1 H, Plt Count 357, MPV 9.9, Immature Gran % (Auto) 0.400, Neut % (Auto) 87.0 H, Lymph % (Auto) 4.5 L, [place] % (Auto) 7.4, Eos % (Auto) 0.4, Baso % (Auto) 0.3, Absolute Neuts (auto) 14.6 H, Absolute Lymphs (auto) 0.75 L, Nucleated RBC % 0 12/12/21 07:57: Sodium 138, Potassium 3.8, Chloride 103, Carbon Dioxide 29.0, Anion Gap 6, BUN 24 H, Creatinine 3.39 H, Estim Creat Clear Calc 9.16, Est GFR (MDRD) Af Amer 17 L, Est GFR (MDRD) Non-Af 14 L, BUN/Creatinine Ratio 7.1 L, Glucose 159 H, Calcium 8.7, Total Bilirubin 0.80, AST 20, ALT 21, Alkaline Phosphatase 142 H, Total Protein 6.0 L, Albumin 1.7 L, Globulin 4.3 H, Albumin/Globulin Ratio 0.4 L Micro: Microbiology 12/10/21 11:10 Blood Culture (Wb) - Left Hand Blood Culture - Preliminary No growth in 48 hours. 12/10/21 10:50 Blood Culture (Wb) - Left Wrist Blood Culture - Preliminary No growth in 48 hours. Radiography Diagnostic Testing: Radiology Impression Echocardiogram 12/10/21 08:01 Interpretation Summary Left ventricular systolic function is normal. The estimated ejection fraction is 55 %. The left atrium is mildly enlarged. There is moderate mitral annular calcification. Extension of the mitral annular calcification on the base the posterior mitral valve leaflet. Anterior leaflet diffuse mitral valve thickening. Mild focal mitral valve calcification of the anterior leaflet. Moderately severe (3+) eccentric mitral valve insufficiency. Moderately severe (3+) tricuspid valve insufficiency. Moderate aortic stenosis. Trivial pulmonic valve insufficiency. Small to moderate pericardial effusion. There are no echocardiographic indications of cardiac tamponade. Right ventricular systolic pressure estimated to be 97 mmHg. Severe pulmonary hypertension. Unable to assess diastolic dysfunction. Ordering Physician: Salma Barrett Performed By: Bela Ruiz RCS Chest X-Ray 12/10/21 13:30 IMPRESSION: Small left pleural effusion with left basilar infiltration and/or atelectasis. Electronically Signed: Ridge Luciano MD at 14:00 EDT , Physical Exam Const alert and no apparent distress Orientation / Consciousness: confused and disoriented HEENT normocephalic and head/scalp atraumatic Eyes PERRL and EOMs intact bilaterally Neck supple General: trachea midline Chest inspection of chest normal Resp normal respiratory effort Auscultation: Negative for rales, rhonchi or wheezes Cardio regular rate, regular rhythm, S1 normal heart sound and S2 normal heart sound GI normal to inspection, nondistended, normoactive bowel sounds Extremity no clubbing, cyanosis or edema Skin no rashes or lesions noted Neuro moves all extremities and no focal motor deficits Psych cooperative Charges/Coding Visit Charges Inpatient E&M: 50991 Subs Hosp L2
[2021-12-13 07:20] LABS: Absolute Lymphocyte Count 0.78 X10^3/uL (0.83-4.51); Absolute Neutrophil Count 10.4 X10^3/uL (2.0-7.7); Basophil# 0.06 X10^3/uL; Basophil% 0.5 % (0-1); Eosinophil# 0.13 X10^3/uL; Hematocrit 22.6 % (37-47); Hemoglobin 7.1 g/dL (12.0-15.0); Lymphocyte # 0.78 X10^3/ul (0.83-4.51); Lymphocyte % 6.3 % (19-41); Mean Corp Hgb Conc 31.4 g/dL (32-36); Mean Corpuscular Hgb 35.9 pg (27.0-32.0); Mean Corpuscular Volume 114.1 fL (81-99); Mean Platelet Vol. 10.2 fl (6.2-12.0); Monocyte# 1.02 X10^3/uL; Monocyte% 8.2 % (0-10); NRBC Flagged by Analyzer 0 % (0-5); Neutrophil # 10.35 X10^3/uL (2.7-7.7); Neutrophil % 83.1 % (47-70); Platelet Count 333 K/mm3 (150-450); RBC Distribution Width CV 15.2 % (11.6-14.6); RBC Distribution Width SD 62.4 fl (35.1-43.9); Red Blood Count 1.98 M/mm3 (4.2-5.4); White Blood Count 12.5 K/mm3 (4.4-11.0)
[2021-12-13 07:46] LABS: ALB/GLOB Ratio 0.4 RATIO (0.9-2.4); AST(SGOT) 19 U/L (15-37); Alanine Aminotransfer ALT/SGPT 19 U/L (13-56); Albumin, Serum 1.5 g/dL (3.2-5.0); Alkaline Phosphatase 122 U/L (45-117); Anion Gap 5 (5-15); BUN 31 mg/dL (7-18); BUN/Creat Ratio 6.8 RATIO (10-20); Calcium,Total 8.6 mg/dL (8.5-10.1); Chloride 107 mmol/L (98-107); Creatinine, Serum 4.56 mg/dL (0.55-1.02); EST Glomerular Filtration Rate 10 mL/min (>60); Est Glom Filt Rate - Afr Amer 12 mL/min (>60); Estimated Creatinine Clearance 6.81 ml/min; Globulin 4.1 g/dL (2.2-4.2); Glucose 99 mg/dL (74-106); Potassium 4.2 mmol/L (3.5-5.1); Protein, Total 5.6 g/dL (6.4-8.2); Sodium Level 139 mmol/L (136-145)
[2021-12-13 09:17] LABS: Hematocrit 23.1 % (37-47); Hemoglobin 7.5 g/dL (12.0-15.0)
--- NOTE | 2021-12-13 09:27 | CASEMGMT ---
RONAL called Leatha at [facility] and let her know patient's daughter was still planning on taking patient to dialysis. However, patient would need picked up from dialysis. Leatha said it would be easier for them to take patient than it would to pick her up. RONAL said SW will talk with patient's daughter. RONAL called patient's daughter Lorenza and let her know this information. Lorenza said she and her family will figure it out. She doesn't want patient to not go to [facility] just because of the transportation issue. RONAL told Leatha that physician feels patient will likely be ready over the weekend. RONAL explained how the discharge would work. RONAL called Leatha at [facility], but she was in morning meeting. SW will call back. Patient has Medicaid which RONAL did not realize prior. RONAL called [facility] and spoke with Padma. Padma does not think that they would be able to help with transportation since she is at a long term. Padma will check on it and get back to . Jacque MANN
[2021-12-13] MEDS: Epoetin Alfa epbx 10,000 UNITS/ML 6000 UNIT IV (10:02)
[2021-12-13] MEDS: 0.9% Saline Lock 10 ML Syringe IV (10:02)
[2021-12-13] MEDS: Ondansetron 4 MG/2 ML Vial IV (10:02)
--- NOTE | 2021-12-13 10:48 | CASEMGMT ---
RONAL called Leatha at [facility] and let her know patient's daughter wants patient at [facility] so they will work out transportation however they have to. Leatha said that is fine. Patient can come over the weekend. RONAL called patient's daughter, Lorenza and let her know [facility] can take patient. RONAL told Lorenza that transport will start on Thursday. Someone from the family will need to pickling grader patient on Thursday. RONAL told her Leatha suggested she stop by on Thursday to see their schedule of what they can and can't do in regards to transportation. Lorenza said that is fine. Lorenza will talk with Leatha. RONAL did let Lorenza know that SW contacted [facility], but they are not sure they can help since patient is at a custodial. RONAL called [facility] in [place] and let Agosto know patient will be returning on Thursday. RONAL has faxed all clinicals to [facility] to obtain insurance authorization for [facility]. Plan: [facility] under skilled level of care. Jacque Caballero HAIR OR BEAUTY SALON ASSISTANT MACKENZIE
--- NOTE | 2021-12-13 11:12 | CASEMGMT ---
SW received a call from Kamala with [facility]. Patient is approved for residential facility. The authorization number is: [id number]. Green sheet on chart for d/c. Plan: d/c to [facility] under skilled level of care. Jacque MANN
--- NOTE | 2021-12-13 11:59 | PN.RENAL_ITS ---
Subjective Subjective cantankerous Objective Data Objective Data dialysis without incident Vital Signs: Vital Signs Temp Pulse Resp BP Pulse Ox O2 Del Method O2 Flow Rate 97.8 F 61 16 117/48 L 94 Nasal Cannula 3 12/13/21 04:00 12/13/21 07:00 12/13/21 04:00 12/13/21 04:00 12/13/21 08:06 12/13/21 08:06 12/13/21 08:06 Oxygen Flow Rate (L/min) 3 Oxygen Delivery Method Nasal Cannula Weight: 56.2 kg Body Mass Index (BMI) 21.1 Intake & Output: Intake and Output for Last 24 Hours 12/11/21 12/12/21 12/13/21 23:59 23:59 23:59 Intake Total 1429.62 / 1429.62 1126.25 / 1176.25 160 / 160 Output Total 0 / 0 0 / 0 Balance 1429.62 / 1429.62 1126.25 / 1176.25 160 / 160 Lab / Micro Data Result Diagrams: 12/13/21 09:00 12/13/21 06:35 Labs: Laboratory Results - last 24 hr 12/13/21 06:35: WBC 12.5 H, RBC 1.98 L, Hgb 7.1 L, Hct 22.6 L, MCV 114.1 H, MCH 35.9 H, MCHC 31.4 L D, RDW Std Deviation 62.4 H, RDW Coeff of Keri 15.2 H, Plt Count 333, MPV 10.2, Immature Gran % (Auto) 0.900, Neut % (Auto) 83.1 H, Lymph % (Auto) 6.3 L, [place] % (Auto) 8.2, Eos % (Auto) 1.0, Baso % (Auto) 0.5, Absolute Neuts (auto) 10.4 H, Absolute Lymphs (auto) 0.78 L, Nucleated RBC % 0 12/13/21 06:35: Sodium 139, Potassium 4.2, Chloride 107, Carbon Dioxide 27.0, Anion Gap 5, BUN 31 H, Creatinine 4.56 H, Estim Creat Clear Calc 6.81, Est GFR (MDRD) Af Amer 12 L, Est GFR (MDRD) Non-Af 10 L, BUN/Creatinine Ratio 6.8 L, Glucose 99, Calcium 8.6, Total Bilirubin 0.90, AST 19, ALT 19, Alkaline Phosphatase 122 H, Total Protein 5.6 L, Albumin 1.5 L, Globulin 4.1, Albumin/Globulin Ratio 0.4 L 12/13/21 09:00: Hgb 7.5 L, Hct 23.1 L Micro: Microbiology 12/10/21 11:10 Blood Culture (Wb) - Left Hand Blood Culture - Preliminary No growth in 48 hours. 12/10/21 10:50 Blood Culture (Wb) - Left Wrist Blood Culture - Preliminary No growth in 48 hours. Physical Exam Const Orientation / Consciousness: confused Resp clear to auscultation bilaterally Cardio regular rate GI non-tender and non-distended Palpation: soft Extremity General Extremity: AV fistula Assessment & Plan Assessment/Plan (1) ESRD (end stage renal disease) on dialysis: PLAN: dialysis MWF with AVF right upper arm. Currently on dialysis, proceeding w/o incident (2) Hypotension: PLAN: resolved (3) Atrial fibrillation: PLAN: rate controlled, cardio following (4) Clostridioides difficile diarrhea: PLAN: leukocytosis improving, vanco po (5) Diabetes: (6) HTN (hypertension): (7) Heart disease: (8) Dehydration: PLAN: run even today on dialysis (9) Anemia: PLAN: epo on dialysis 6000 today
--- NOTE | 2021-12-13 12:32 | PN.HOSP_ITS ---
Subjective Subjective Patient seen and examined. She complained of having pain all over. She denied any fever, chills, cough, chest pain, nausea, vomiting or diarrhea. Review of systems is otherwise negative. She was having dialysis at time of review. She did go back briefly into afib whilst on dialysis. Objective Data Objective Data Vital Signs: Vital Signs Temp Pulse Resp BP Pulse Ox O2 Del Method O2 Flow Rate 97.8 F 61 16 117/48 L 94 Nasal Cannula 3 12/13/21 04:00 12/13/21 07:00 12/13/21 04:00 12/13/21 04:00 12/13/21 08:06 12/13/21 08:06 12/13/21 08:06 Oxygen Flow Rate (L/min) 3 Oxygen Delivery Method Nasal Cannula Weight: 123 lb 14.397 oz Body Mass Index (BMI) 21.1 Intake & Output: Intake and Output for Last 24 Hours 12/11/21 12/12/21 12/13/21 23:59 23:59 23:59 Intake Total 1429.62 / 1429.62 1126.25 / 1176.25 160 / 160 Output Total 0 / 0 0 / 0 Balance 1429.62 / 1429.62 1126.25 / 1176.25 160 / 160 Lab / Micro Data Result Diagrams: 12/13/21 09:00 12/13/21 06:35 Labs: Laboratory Results - last 24 hr 12/13/21 06:35: WBC 12.5 H, RBC 1.98 L, Hgb 7.1 L, Hct 22.6 L, MCV 114.1 H, MCH 35.9 H, MCHC 31.4 L D, RDW Std Deviation 62.4 H, RDW Coeff of Keri 15.2 H, Plt Count 333, MPV 10.2, Immature Gran % (Auto) 0.900, Neut % (Auto) 83.1 H, Lymph % (Auto) 6.3 L, [place] % (Auto) 8.2, Eos % (Auto) 1.0, Baso % (Auto) 0.5, Absolute Neuts (auto) 10.4 H, Absolute Lymphs (auto) 0.78 L, Nucleated RBC % 0 12/13/21 06:35: Sodium 139, Potassium 4.2, Chloride 107, Carbon Dioxide 27.0, Anion Gap 5, BUN 31 H, Creatinine 4.56 H, Estim Creat Clear Calc 6.81, Est GFR (MDRD) Af Amer 12 L, Est GFR (MDRD) Non-Af 10 L, BUN/Creatinine Ratio 6.8 L, Glucose 99, Calcium 8.6, Total Bilirubin 0.90, AST 19, ALT 19, Alkaline Phosphatase 122 H, Total Protein 5.6 L, Albumin 1.5 L, Globulin 4.1, Albumin/Globulin Ratio 0.4 L 12/13/21 09:00: Hgb 7.5 L, Hct 23.1 L Micro: Microbiology 12/10/21 11:10 Blood Culture (Wb) - Left Hand Blood Culture - Preliminary No growth in 48 hours. 12/10/21 10:50 Blood Culture (Wb) - Left Wrist Blood Culture - Preliminary No growth in 48 hours. Physical Exam Const alert, oriented x3 and no apparent distress HEENT normocephalic, head/scalp atraumatic and moist oral mucous membranes Mouth: oral and palatal mucosa normal Eyes PERRL, EOMs intact bilaterally and conjunctivae normal Neck no lymphadenopathy and supple Resp normal respiratory effort, normal air movement, no retractions, no use of accessory muscles and clear to auscultation bilaterally Cardio regular rate, regular rhythm, S1 normal heart sound, S2 normal heart sound and no murmurs Cardio Narrative: converted to normal sinus rhythm GI normal to inspection, nondistended, normoactive bowel sounds, soft to palpation, non-tender and non-distended Extremity normal to inspection, full ROM and no clubbing, cyanosis or edema Skin General Skin Exam: no breakdown Neuro oriented x3, CN's II-XII intact bilaterally, moves all extremities, no focal motor deficits and no sensory deficits noted Sensorium / Orientation: awake, alert, oriented to person, oriented to place and oriented to time Coordination / Balance: [id number] test normal Motor Exam: strength 5/5 throughout Psych affect normal Assessment & Plan Assessment/Plan (1) Hypotension: (2) Paroxysmal atrial fibrillation with RVR: PLAN: Plan #Afib * off amiodarone drip and now on oral amiodarone as well as metoprolol * converted to normal sinus rhythm; did go back briefly into afib whilst undergoing dialysis, but converted to normal sinus rhythm * 2D echo: EF of 55%, with moderate aortic stenosis and moderately severe tricuspid valve and eccentric mitral valve insufficiency, as well as RVSP of 97mmHg. * not anticoagulated o/a of anemia * cardiology on board * #shock, * resolved. NOw off levophed * blood cultures negative. Cefepime discontinued. * critical care on board * #C Diff * diarrhea has resolved. * on oral vancomycin; to complete a 10 day course * hasn't had any diarrhea since admission * #Elevated troponin * initial troponin was elevated, at 157; trended up to a peak of 164 * 2D echo as above * cardiology on board; conservative management for now * Anemia of chornic disease * Hb is 7.5 * reason for anemia is unclear * last Hb in record on 08/01/21 is 12.4 * iron profile showed iron of 69, with iron saturation of 22% and ferritin of 1974. This seems to be an anemia of chronic disease * switch to PO pantoprazole * will get GI consult * #ESRD * nephrology on board for dialysis * on sevelamer * #Hypothyroidism: * on synthroid. TSH is 0.19. free T4 is 1.67 which is high * will repeat on outpatient basis once critical illness has resolved * #Hyperlipidemia: on statin DVT prophylaxis; SCDs Code status: full code Disposition: awaiting placement * Charges/Coding Visit Charges Inpatient E&M: 08862 Subs Hosp L3
[2021-12-13] MEDS: Metoprolol Tartrate 25 MG Tablet 12.5 MG PO ×2 (12:49→20:34)
[2021-12-13] MEDS: SEVELAMER CARBONATE 800 MG TABLET PO ×3 (12:50→18:59)
[2021-12-13] MEDS: Vitamin B Comp W-C Capsule 1 CAP PO (12:50)
[2021-12-13] MEDS: Acetaminophen 325 MG Tablet 650 MG PO ×2 (12:50→20:34)
--- NOTE | 2021-12-13 12:56 | DIALYSIS ---
Hd x 3.25 complete. Ran on 3k bath. No fluid removed. Tachycardia noted during tx. Dr Queen is aware. Used right arm access. [place] removed post tx and pressure applied x 10 minutes. Hemostasis achieved. Fresh gauze and tape applied. Report given to JORGE Mendoza.
[2021-12-13] MEDS: Pantoprazole Sodium 40 MG Tablet PO ×2 (15:36→20:24)
[2021-12-13] MEDS: Nepro with Carbsteady 237 ML Liquid 120 ML PO ×2 (15:37→18:59)
[2021-12-13] MEDS: Atorvastatin Calcium 80 MG Tablet PO (20:24)
[2021-12-13] MEDS: Menthol/Lanolin/Calamine/Znox 113 GM Tube 1 APPLIC TOPICAL (23:34)
[2021-12-14] VITALS (17 sets, daily range): BP systolic 74–124; BP diastolic 39–56; PULSE 40–84; RESP 13–23; TEMP 36.2–37.3; O2SAT 94–99; BMI 23.5
[2021-12-14] MEDS: 0.9% Saline Lock 10 ML Syringe IV ×2 (01:44→10:44)
[2021-12-14] MEDS: Ondansetron 4 MG/2 ML Vial IV (01:46)
--- NOTE | 2021-12-14 02:07 | PCM.HOSP.N ---
Hospitalist Note Patient BP notably decreased, small IVF bolus administered without effect. Will administer 1 L NS. From review of records guiac positive, Hgb 7.5 but in 07/2021 was 12.4, will order 2 u PRBC and administer IVF in the interim cautious given ESRD patient with no urine production. From discussion with RN the patient last HD had no fluid removal noted.
[2021-12-14] MEDS: 0.9% Normal Saline 1,000 ML 999 ML IV (02:12)
[2021-12-14] MEDS: Acetaminophen 325 MG Tablet 650 MG PO ×2 (05:01→21:46)
[2021-12-14] MEDS: Levothyroxine 112 MCG Tablet PO (05:01)
[2021-12-14] MEDS: Vancomycin 125 MG/5 ML Susp PO.SYRINGE PO ×3 (05:01→17:07)
--- NOTE | 2021-12-14 07:35 | NURSING ---
RN entered patient room, patient yelling and cursing at staff with any touch. Yelling Just let me . RN informed patient that she is a full code and we are just here to do our job and take care of her. RN told patient that if she did not want to be a full code anymore that she could discuss that with the doctor today.
[2021-12-14 09:00] LABS: Absolute Lymphocyte Count 0.75 X10^3/uL (0.83-4.51); Absolute Neutrophil Count 10.1 X10^3/uL (2.0-7.7); Basophil% 0.8 % (0-1); Eosinophil# 0.08 X10^3/uL; Eosinophils% 0.7 % (0-5); Hematocrit 26.6 % (37-47); Hemoglobin 8.6 g/dL (12.0-15.0); Lymphocyte # 0.75 X10^3/ul (0.83-4.51); Lymphocyte % 6.1 % (19-41); Mean Corp Hgb Conc 32.3 g/dL (32-36); Mean Corpuscular Hgb 35.1 pg (27.0-32.0); Mean Corpuscular Volume 108.6 fL (81-99); Mean Platelet Vol. 10.3 fl (6.2-12.0); Monocyte# 0.99 X10^3/uL; Monocyte% 8.1 % (0-10); NRBC Flagged by Analyzer 0.5 % (0-5); Neutrophil # 10.08 X10^3/uL (2.7-7.7); Neutrophil % 82.6 % (47-70); POSITIVE MORPHOLOGY YES; Platelet Count 367 K/mm3 (150-450); RBC Distribution Width CV 18.5 % (11.6-14.6); RBC Distribution Width SD 72.8 fl (35.1-43.9); Red Blood Count 2.45 M/mm3 (4.2-5.4); White Blood Count 12.2 K/mm3 (4.4-11.0)
[2021-12-14 09:07] LABS: Differential Indicated SCAN CRITERIA MET
[2021-12-14 09:24] LABS: ALB/GLOB Ratio 0.4 RATIO (0.9-2.4); AST(SGOT) 15 U/L (15-37); Alanine Aminotransfer ALT/SGPT 18 U/L (13-56); Albumin, Serum 1.5 g/dL (3.2-5.0); Alkaline Phosphatase 122 U/L (45-117); Anion Gap 3 (5-15); BUN 24 mg/dL (7-18); BUN/Creat Ratio 7.7 RATIO (10-20); Calcium,Total 8.8 mg/dL (8.5-10.1); Chloride 105 mmol/L (98-107); Creatinine, Serum 3.13 mg/dL (0.55-1.02); EST Glomerular Filtration Rate 15 mL/min (>60); Est Glom Filt Rate - Afr Amer 18 mL/min (>60); Estimated Creatinine Clearance 9.92 ml/min; Globulin 4.2 g/dL (2.2-4.2); Glucose 114 mg/dL (74-106); Potassium 4.4 mmol/L (3.5-5.1); Protein, Total 5.7 g/dL (6.4-8.2); Sodium Level 139 mmol/L (136-145)
[2021-12-14 10:10] LABS: Anisocytosis 2+; Platelet Estimate ADEQUATE (ADEQ); Red Cell Morphology N CHROM NORMAL (NORM C&C)
[2021-12-14] MEDS: Menthol/Lanolin/Calamine/Znox 113 GM Tube 1 APPLIC TOPICAL ×4 (10:43→21:47)
[2021-12-14] MEDS: Pantoprazole Sodium 40 MG Tablet PO ×2 (10:51→21:47)
[2021-12-14] MEDS: SEVELAMER CARBONATE 800 MG TABLET PO ×2 (10:51→17:15)
[2021-12-14] MEDS: Vitamin B Comp W-C Capsule 1 CAP PO (10:51)
--- NOTE | 2021-12-14 13:14 | PN.HOSP_ITS ---
Subjective Subjective Patient seen and examined. She complained of generalized pain today. She denied any fever, chills, nausea, vomiting or diarrhea. Patient has been bradycardic with heart rate down in the 40s. She is asymptomatic. Review of systems otherwise negative. Objective Data Objective Data Vital Signs: Vital Signs Temp Pulse Resp BP Pulse Ox O2 Del Method O2 Flow Rate 97.2 F L 47 L 19 H 101/43 L 95 Nasal Cannula 3 12/14/21 07:32 12/14/21 10:00 12/14/21 07:35 12/14/21 07:32 12/14/21 07:44 12/14/21 07:44 12/14/21 07:44 Oxygen Flow Rate (L/min) 3 Oxygen Delivery Method Nasal Cannula Weight: 124 lb 8.979 oz Body Mass Index (BMI) 21.1 Intake & Output: Intake and Output for Last 24 Hours 12/12/21 12/13/21 12/14/21 23:59 23:59 23:59 Intake Total 1126.25 / 1176.25 280 / 280 1730 / 1730 Output Total 0 / 0 Balance 1126.25 / 1176.25 280 / 280 1730 / 1730 Lab / Micro Data Result Diagrams: 12/14/21 08:31 12/14/21 08:31 Labs: Laboratory Results - last 24 hr 12/14/21 02:30: Blood Type A NEGATIVE, Antibody Screen NEGATIVE, Crossmatch See Detail 12/14/21 08:31: WBC 12.2 H, RBC 2.45 L, Hgb 8.6 L, Hct 26.6 L, MCV 108.6 H, MCH 35.1 H, MCHC 32.3, RDW Std Deviation 72.8 H, RDW Coeff of Keri 18.5 H, Plt Count 367, MPV 10.3, Immature Gran % (Auto) 1.700 H, Neut % (Auto) 82.6 H, Lymph % (Auto) 6.1 L, [place] % (Auto) 8.1, Eos % (Auto) 0.7, Baso % (Auto) 0.8, Absolute Neuts (auto) 10.1 H, Absolute Lymphs (auto) 0.75 L, Nucleated RBC % 0.5, Platelet Estimate ADEQUATE, RBC Morphology N CHROM, Anisocytosis 2+ 12/14/21 08:31: Sodium 139, Potassium 4.4, Chloride 105, Carbon Dioxide 31.0, Anion Gap 3 L, BUN 24 H, Creatinine 3.13 H, Estim Creat Clear Calc 9.92, Est GFR (MDRD) Af Amer 18 L, Est GFR (MDRD) Non-Af 15 L, BUN/Creatinine Ratio 7.7 L, Glucose 114 H, Calcium 8.8, Total Bilirubin 1.00, AST 15, ALT 18, Alkaline Phosphatase 122 H, Total Protein 5.7 L, Albumin 1.5 L, Globulin 4.2, Albumin/Globulin Ratio 0.4 L Micro: Microbiology 12/13/21 20:41 Stool Stool Occult Blood (DIAN) - Final Occult Blood Positive 12/10/21 11:10 Blood Culture (Wb) - Left Hand Blood Culture - Preliminary No growth in 48 hours. 12/10/21 10:50 Blood Culture (Wb) - Left Wrist Blood Culture - Preliminary No growth in 48 hours. Physical Exam Const alert, oriented x3 and no apparent distress HEENT normocephalic, head/scalp atraumatic and moist oral mucous membranes Eyes PERRL, EOMs intact bilaterally and conjunctivae normal Neck no lymphadenopathy and supple Resp normal respiratory effort, normal air movement, no retractions, no use of accessory muscles and clear to auscultation bilaterally Cardio regular rate, regular rhythm, S1 normal heart sound, S2 normal heart sound and no murmurs Cardio Narrative: converted to normal sinus rhythm GI normal to inspection, nondistended, normoactive bowel sounds, soft to palpation, non-tender and non-distended Extremity normal to inspection, full ROM and no clubbing, cyanosis or edema Skin General Skin Exam: no breakdown Neuro oriented x3, CN's II-XII intact bilaterally, moves all extremities, no focal motor deficits and no sensory deficits noted Sensorium / Orientation: awake, alert, oriented to person, oriented to place and oriented to time Coordination / Balance: [id number] test normal Motor Exam: strength 5/5 throughout Psych affect normal Assessment & Plan Assessment/Plan (1) Hypotension: (2) Paroxysmal atrial fibrillation with RVR: PLAN: Plan #Afib * off amiodarone drip and now on oral amiodarone as well as metoprolol * converted to normal sinus rhythm; did go back briefly into afib whilst undergoing dialysis, but converted to normal sinus rhythm * 2D echo: EF of 55%, with moderate aortic stenosis and moderately severe tricuspid valve and eccentric mitral valve insufficiency, as well as RVSP of 97mmHg. * not anticoagulated o/a of anemia * cardiology on board * #shock, * resolved. NOw off levophed * blood cultures negative. Cefepime discontinued. * critical care on board * #C Diff * diarrhea has resolved. * on oral vancomycin; to complete a 10 day course * hasn't had any diarrhea since admission * #Elevated troponin * initial troponin was elevated, at 157; trended up to a peak of 164 * 2D echo as above * cardiology on board; conservative management for now * Anemia of chornic disease * Hb was 7.5. Was transfused with one unit of PRBCs overnight. * Hb today is 8.6 * stool for occult blood positive * last Hb in record on 08/01/21 is 12.4 * iron profile showed iron of 69, with iron saturation of 22% and ferritin of 1974. This seems to be an anemia of chronic disease * switch to PO pantoprazole * GI consulted. * #ESRD * nephrology on board for dialysis * on sevelamer * #Hypothyroidism: * on synthroid. TSH is 0.19. free T4 is 1.67 which is high * will repeat on outpatient basis once critical illness has resolved * #Hyperlipidemia: on statin DVT prophylaxis; SCDs Code status: full code Disposition: awaiting placement * Charges/Coding Visit Charges Inpatient E&M: 72707 Subs Hosp L2
--- NOTE | 2021-12-14 14:11 | PN.CARD_ITS ---
Subjective Subjective Patient is a poor historian. Does not appear to be having any significant cardiac complaints. Objective Data Vital Signs: Vital Signs Temp Pulse Resp BP Pulse Ox O2 Del Method O2 Flow Rate 99.2 F H 81 19 H 152/58 H 92 Nasal Cannula 2 12/14/21 12:00 12/14/21 12:00 12/14/21 12:00 12/14/21 12:00 12/14/21 12:00 12/14/21 12:00 12/14/21 12:00 Oxygen Flow Rate (L/min) 2 Oxygen Delivery Method Nasal Cannula Weight: 124 lb 8.979 oz Body Mass Index (BMI) 21.1 Intake & Output: Intake and Output for Last 24 Hours 12/12/21 12/13/21 12/14/21 23:59 23:59 23:59 Intake Total 1126.25 / 1176.25 280 / 280 1730 / 1730 Output Total 0 / 0 Balance 1126.25 / 1176.25 280 / 280 1730 / 1730 Lab / Micro Data Result Diagrams: 12/14/21 08:31 12/14/21 08:31 Labs: Laboratory Results - last 24 hr 12/14/21 02:30: Blood Type A NEGATIVE, Antibody Screen NEGATIVE, Crossmatch See Detail 12/14/21 08:31: WBC 12.2 H, RBC 2.45 L, Hgb 8.6 L, Hct 26.6 L, MCV 108.6 H, MCH 35.1 H, MCHC 32.3, RDW Std Deviation 72.8 H, RDW Coeff of Keri 18.5 H, Plt Count 367, MPV 10.3, Immature Gran % (Auto) 1.700 H, Neut % (Auto) 82.6 H, Lymph % (Auto) 6.1 L, [place] % (Auto) 8.1, Eos % (Auto) 0.7, Baso % (Auto) 0.8, Absolute Neuts (auto) 10.1 H, Absolute Lymphs (auto) 0.75 L, Nucleated RBC % 0.5, Platelet Estimate ADEQUATE, RBC Morphology N CHROM, Anisocytosis 2+ 12/14/21 08:31: Sodium 139, Potassium 4.4, Chloride 105, Carbon Dioxide 31.0, Anion Gap 3 L, BUN 24 H, Creatinine 3.13 H, Estim Creat Clear Calc 9.92, Est GFR (MDRD) Af Amer 18 L, Est GFR (MDRD) Non-Af 15 L, BUN/Creatinine Ratio 7.7 L, Glucose 114 H, Calcium 8.8, Total Bilirubin 1.00, AST 15, ALT 18, Alkaline Phosphatase 122 H, Total Protein 5.7 L, Albumin 1.5 L, Globulin 4.2, Albumin/Globulin Ratio 0.4 L Micro: Microbiology 12/13/21 20:41 Stool Stool Occult Blood (DIAN) - Final Occult Blood Positive Cardiology Labs/Tests 12/14/21 08:31: WBC 12.2 H, RBC 2.45 L, Hgb 8.6 L, Hct 26.6 L, MCV 108.6 H, MCH 35.1 H, MCHC 32.3, Plt Count 367, MPV 10.3, Immature Gran % (Auto) 1.700 H, Neut % (Auto) 82.6 H, Lymph % (Auto) 6.1 L, [place] % (Auto) 8.1, Eos % (Auto) 0.7, Baso % (Auto) 0.8, Absolute Neuts (auto) 10.1 H, Nucleated RBC % 0.5 12/14/21 08:31: Sodium 139, Potassium 4.4, Chloride 105, Carbon Dioxide 31.0, Anion Gap 3 L, BUN 24 H, Creatinine 3.13 H, Est GFR (MDRD) Af Amer 18 L, Est GFR (MDRD) Non-Af 15 L, BUN/Creatinine Ratio 7.7 L, Glucose 114 H, Calcium 8.8, Total Bilirubin 1.00 Rhythm: EKG: ECHO: Stress Test: Cardiac Cath: PCI: CT Surgery: Holter monitor: EPS: PPM: CXR: Chest CT Scan: Assessment & Plan Assessment/Plan (1) Atrial fibrillation: PLAN: Patient is converted to sinus rhythm and is in sinus bradycardia at this time. Will be reasonable to discontinue beta-rosario and keep her on amiodarone alone.
--- NOTE | 2021-12-14 16:31 | PCM.CONS.GEN ---
Assessment & Plan Assessment/Plan (1) Clostridioides difficile diarrhea: PLAN: She currently is only having about 2-3 bowel movements per day. She is having some discomfort when going to the bathroom. I will order her hydrocortisone suppositories if she will allow the nurse to give it to her. If not we can use a hydrocortisone cream and cholestyramine to thicken up her stools. (2) Anemia: PLAN: Differential diagnosis for her would be AV malformation, chronic gastritis, less likely celiac disease, atrophic gastritis, peptic ulcer disease she should undergo an upper endoscopy and possible colonoscopy if permitted by her daughter in the future. Her daughter was explained alternatives, risk, benefits include not withstanding bleeding, infection, sepsis, perforation, need for emergent . She will have an ASA of 3. (3) Hypotension: PLAN: Currently she is not having any problems with hypotension at this time as her atrial fibrillation with RVR has resolved. (4) Atrial fibrillation: PLAN: She continues to remain in normal sinus rhythm on amiodarone therapy. She is being followed by cardiology. HPI Consult Data Date of Consult: 12/14/21 HPI Narrative Reason for Consultation: Anemia HPI Narrative: CARINE HODGE, is a 86 F who presented to the to the emergency room from dialysis where she had emesis x2 on 12/10/2021.? She became dizzy, confused after approximately 2 hours of dialysis.? Patient has been treated for C. difficile with oral vancomycin 125 mg 4 times daily since last and has had improvement in her symptoms and has had about 2 bowel movements that are still loose daily.? She has a history of dementia and her daughter is power of transactional attorney is here to give history and states that the patient wishes to be DNR Comfort Care at this time.? She was admitted to progressive care unit and managed for C. difficile colitis and consult nephrology for anticipated need for dialysis. After discussion the patient had a change in her DNR status to being a full code .? Thus plans were then made to have the patient transferred to the ICU for further evaluation care with consults to cardiology and pulmonology/critical care medicine.Cardiovascular consultation based upon concerns of the development of atrial fibrillation with RVR superimposed upon ongoing hypotension. back in normal sinus rhythm and out of the ICU in the progressive care unit. I was consulted due to the patient's worsening anemia since being in the hospital and she was also determined to be fecal occult positive. PFSH Medical History (Updated 12/11/21 @ 17:00 by Olamide Meza) Chronic renal failure, stage 5 Diabetes Heart disease HTN (hypertension) hypercholesterolemia Problem with dialysis access Renal failure Viabahn Stent to Right Subclavian Home Medications carvedilol 3.125 mg tablet 3.125 mg PO BID BP 03/30/18 [History Last Taken 12/09/21] ergocalciferol (vitamin D2) 1,250 mcg (50,000 unit) capsule 50,000 unit PO .QOWEEK Check with primary doctor 03/30/18 [History Last Taken 12/09/21] nateglinide 60 mg tablet 60 mg PO TID DIABETES 03/30/18 [History Last Taken 12/09/21] paroxetine HCl 40 mg tablet (Paxil) 40 mg PO DAILY Check with primary doctor 03/30/18 [History Last Taken 12/09/21] sevelamer carbonate 800 mg tablet 800 mg PO QPC Check with primary doctor 03/30/18 [History Last Taken 12/09/21] Cyanocobalamin (Vitamin B-12) [Cyanocobalamin Injection] 1,000 mcg IM QMONTH Check with primary doctor 04/06/18 [History Last Taken 11/14/21] rosuvastatin 40 mg tablet 40 mg PO QHS CHOLESTEROL 04/06/18 [History Last Taken 12/09/21] vitamin B complex-vitamin C-folic acid 0.8 mg tablet 0.8 mg PO DAILY 05/03/19 [History Last Taken Unknown] levothyroxine 112 mcg tablet (Synthroid) 112 mcg PO DAILY THYROID 12/10/21 [History Last Taken 12/09/21] Allergy/AdvReac Type Severity Reaction Status Date / Time Penicillins Allergy Mild Unknown Verified 08/01/21 10:52 Family History Brother Cancer Heart disease Mother Breast cancer Father CVA (cerebral vascular accident) Surgical History (Updated 12/11/21 @ 17:00 by Olamide Meza) dialysis cath placement S/P appendectomy S/P hysterectomy s/p right a-v fistula (~04/12/18) Social History (Updated 12/27/19 @ 15:[address] Francesco Quarles MD) Smoking Status: Never smoker alcohol intake: never substance use type: does not use ROS ROS Narrative poor historian, limited history, confused. Chart reviewed Constitutional Constitutional: Denies chills, fever(s) or weakness ENT HEENT: Reports dry mouth Respiratory/Chest Respiratory/Chest: Denies dyspnea on exertion Gastrointestinal Gastrointestinal: Denies abdominal pain or anorexia Psychiatric Psychiatric: Reports other Details: belligerent, agitated, confused Physical Exam Const alert, oriented x3 and no apparent distress HEENT normocephalic, head/scalp atraumatic and moist oral mucous membranes Eyes PERRL, EOMs intact bilaterally and conjunctivae normal Neck no lymphadenopathy and supple Resp normal respiratory effort, normal air movement, no retractions, no use of accessory muscles and clear to auscultation bilaterally Cardio regular rate, regular rhythm, S1 normal heart sound, S2 normal heart sound and no murmurs Cardio Narrative: converted to normal sinus rhythm GI normal to inspection, nondistended, normoactive bowel sounds, soft to palpation, non-tender and non-distended Extremity normal to inspection, full ROM and no clubbing, cyanosis or edema Skin General Skin Exam: no breakdown Neuro oriented x3, CN's II-XII intact bilaterally, moves all extremities, no focal motor deficits and no sensory deficits noted Sensorium / Orientation: awake, alert, oriented to person, oriented to place and oriented to time Coordination / Balance: [id number] test normal Motor Exam: strength 5/5 throughout Psych affect normal Lab / Micro Data Result Diagrams: 12/14/21 08:31 12/14/21 08:31 Labs: Laboratory Results - last 24 hr 12/14/21 02:30: Blood Type A NEGATIVE, Antibody Screen NEGATIVE, Crossmatch See Detail 12/14/21 08:31: WBC 12.2 H, RBC 2.45 L, Hgb 8.6 L, Hct 26.6 L, MCV 108.6 H, MCH 35.1 H, MCHC 32.3, RDW Std Deviation 72.8 H, RDW Coeff of Keri 18.5 H, Plt Count 367, MPV 10.3, Immature Gran % (Auto) 1.700 H, Neut % (Auto) 82.6 H, Lymph % (Auto) 6.1 L, [place] % (Auto) 8.1, Eos % (Auto) 0.7, Baso % (Auto) 0.8, Absolute Neuts (auto) 10.1 H, Absolute Lymphs (auto) 0.75 L, Nucleated RBC % 0.5, Platelet Estimate ADEQUATE, RBC Morphology N CHROM, Anisocytosis 2+ 12/14/21 08:31: Sodium 139, Potassium 4.4, Chloride 105, Carbon Dioxide 31.0, Anion Gap 3 L, BUN 24 H, Creatinine 3.13 H, Estim Creat Clear Calc 9.92, Est GFR (MDRD) Af Amer 18 L, Est GFR (MDRD) Non-Af 15 L, BUN/Creatinine Ratio 7.7 L, Glucose 114 H, Calcium 8.8, Total Bilirubin 1.00, AST 15, ALT 18, Alkaline Phosphatase 122 H, Total Protein 5.7 L, Albumin 1.5 L, Globulin 4.2, Albumin/Globulin Ratio 0.4 L Micro: Microbiology 12/13/21 20:41 Stool Stool Occult Blood (DIAN) - Final Occult Blood Positive Charges/Coding Visit Charges Inpatient E&M: 08333 Init Hosp L3
[2021-12-14] MEDS: Atorvastatin Calcium 80 MG Tablet PO (21:47)
[2021-12-15] VITALS (16 sets, daily range): BP systolic 84–144; BP diastolic 43–76; PULSE 59–77; RESP 17–20; TEMP 36.1–36.6; O2SAT 76–100
[2021-12-15] MEDS: Vancomycin 125 MG/5 ML Susp PO.SYRINGE PO ×4 (00:02→17:24)
--- NOTE | 2021-12-15 05:55 | EKG12_ITS ---
Test Reason : rhytm change Blood Pressure : / mmHG Vent. Rate : 051 BPM Atrial Rate : 051 BPM P-R Int : 140 ms QRS Dur : 092 ms QT Int : 478 ms P-R-T Axes : 063 048 077 degrees QTc Int : 440 ms Sinus bradycardia Nonspecific T wave abnormality Abnormal ECG When compared with ECG of 10-DEC-2021 14:20, MANUAL COMPARISON REQUIRED, DATA IS UNCONFIRMED Confirmed by CARYN RIZVI, SIN ([id number]), order editor NYA THAYER ([id number]) on 12/17/2021 10:15:59 AM Referred By: Confirmed By:SIN RUBIN MD
[2021-12-15] MEDS: Levothyroxine 112 MCG Tablet PO (06:24)
[2021-12-15 07:28] LABS: Absolute Lymphocyte Count 0.98 X10^3/uL (0.83-4.51); Absolute Neutrophil Count 12.8 X10^3/uL (2.0-7.7); Basophil% 0.6 % (0-1); Eosinophil# 0.14 X10^3/uL; Eosinophils% 0.9 % (0-5); Hematocrit 28.6 % (37-47); Lymphocyte # 0.98 X10^3/ul (0.83-4.51); Lymphocyte % 6.2 % (19-41); Mean Corp Hgb Conc 31.5 g/dL (32-36); Mean Corpuscular Hgb 33.8 pg (27.0-32.0); Mean Corpuscular Volume 107.5 fL (81-99); Mean Platelet Vol. 10.2 fl (6.2-12.0); Monocyte# 1.36 X10^3/uL; Monocyte% 8.6 % (0-10); NRBC Flagged by Analyzer 0.4 % (0-5); Neutrophil # 12.84 X10^3/uL (2.7-7.7); Neutrophil % 81.3 % (47-70); POSITIVE MORPHOLOGY YES; Platelet Count 450 K/mm3 (150-450); RBC Distribution Width CV 18.5 % (11.6-14.6); RBC Distribution Width SD 71.2 fl (35.1-43.9); Red Blood Count 2.66 M/mm3 (4.2-5.4); White Blood Count 15.8 K/mm3 (4.4-11.0)
[2021-12-15 07:29] LABS: Differential Indicated SCAN CRITERIA MET
[2021-12-15 07:43] LABS: International Normalized Ratio 1.4; Partial Thromboplast Time 37.7 Seconds (24.1-36.2); Prothrombin Time (Protime)PT. 16.8 SECONDS (11.7-14.9)
[2021-12-15 07:45] LABS: ALB/GLOB Ratio 0.4 RATIO (0.9-2.4); AST(SGOT) 13 U/L (15-37); Alanine Aminotransfer ALT/SGPT 16 U/L (13-56); Albumin, Serum 1.7 g/dL (3.2-5.0); Alkaline Phosphatase 120 U/L (45-117); Anion Gap 3 (5-15); BUN 32 mg/dL (7-18); BUN/Creat Ratio 7.3 RATIO (10-20); Calcium,Total 8.9 mg/dL (8.5-10.1); Chloride 108 mmol/L (98-107); Creatinine, Serum 4.38 mg/dL (0.55-1.02); EST Glomerular Filtration Rate 10 mL/min (>60); Est Glom Filt Rate - Afr Amer 12 mL/min (>60); Estimated Creatinine Clearance 7.09 ml/min; Globulin 4.3 g/dL (2.2-4.2); Glucose 124 mg/dL (74-106); Potassium 4.4 mmol/L (3.5-5.1); Sodium Level 140 mmol/L (136-145)
[2021-12-15 08:23] LABS: Anisocytosis 2+; Macrocytosis 1+
[2021-12-15] MEDS: Menthol/Lanolin/Calamine/Znox 113 GM Tube 1 APPLIC TOPICAL ×4 (10:15→21:39)
--- NOTE | 2021-12-15 10:35 | EGD_PTH ---
PATIENT: CARINE HODGE LOC: [facility] U#:[id number] AGE/SX: 86/F ROOM: [facility] RE12/10/[address]: Dr. Benny Rosado MD : 1935 BED: 1 DIS: 12/16/2021 SPEC #: [id number] RECD: 12/16/21 08:40 STATUS: KATHERYN REBogdan #: [id number] YAMINI: 12/15/21 10:[address]: Slim Russell DEPT: SURGICAL PATHOLOGY RECD BY: Radha Schumacher ENTERED: 12/16/21 09:59 SP TYPE: EGD BIOPSY OTHR DR: MD Dr. Warren Suarez MD Dr. Christine Lee, DO Dr. Lambert Pelayo, MD Dr. Benny Walls Dr., MD Dr. Paul Moodispaw, MD Dr. Paul Nielsen, MD Christina Muller, PRESTO LOG OPERATOR-C Tissues: Duodenum, NOS Procedures: Surgery Specimen Level IV Comments: @ Ordering doctor for SUIV edited from to @ by RGOOD at 12/16/21 1356 @ Submitting doctor edited from to @ by GILBERTOD at 12/16/21 1356 HEADER OPERATION: EGD with biopsy (MAC) PRE-OP DIAGNOSIS: Clostridioides difficile diarrhea, anemia TISSUE SUBMITTED: Duodenal ulcer biopsy MICROSCOPIC DIAGNOSIS Duodenal ulcer, biopsy: Minimal chronic inflammation. AM:roopa 12/17/2021 MICROSCOPIC DESCRIPTION Slides are reviewed. GROSS DESCRIPTION Received in fixative is one container labeled with the patient's name and designated duodenal ulcer biopsy. The specimen consists of multiple irregular fragments of light moreno soft tissue that in aggregate measure 0.8 x 0.2 x 0.1 cm. The specimen is totally submitted in one cassette. / GÓMEZ:roopa 12/16/2021 TC:3 CPT: 24812
--- NOTE | 2021-12-15 10:58 | OP.EGD_ITS ---
Patient Name: Jemima Layton Procedure Date: 12/15/2021 10:36 AM Date of : 1935 Age: 86 Procedure: Upper GI endoscopy Indications: Iron deficiency anemia Providers: Slim Russell DO Medicines: Monitored Anesthesia Care Complications: No immediate complications. Procedure: Pre-Anesthesia Assessment: - Prior to the procedure, a History and Physical was performed, and patient medications and allergies were reviewed. The patient is competent. The risks and benefits of the procedure and the sedation options and risks were discussed with the patient. All questions were answered and informed consent was obtained. Patient identification and proposed procedure were verified by the physician in the pre-procedure area. Mental Status Examination: alert and oriented. Airway Examination: normal oropharyngeal airway and neck mobility. Respiratory Examination: clear to auscultation. CV Examination: normal. Prophylactic Antibiotics: The patient does not require prophylactic antibiotics. Prior Anticoagulants: The patient has taken no previous anticoagulant or antiplatelet agents. ASA Grade Assessment: II - A patient with mild systemic disease. After reviewing the risks and benefits, the patient was deemed in satisfactory condition to undergo the procedure. The anesthesia plan was to use moderate sedation / analgesia (conscious sedation). Immediately prior to administration of medications, the patient was re-assessed for adequacy to receive sedatives. The heart rate, respiratory rate, oxygen saturations, blood pressure, adequacy of pulmonary ventilation, and response to care were monitored throughout the procedure. The physical status of the patient was re-assessed after the procedure. After obtaining informed consent, the endoscope was passed under direct vision. Throughout the procedure, the patient's blood pressure, pulse, and oxygen saturations were monitored continuously. The Endoscope was introduced through the mouth, and advanced to the second part of duodenum. The upper GI endoscopy was accomplished without difficulty. The patient tolerated the procedure well. Scope In: 10:47:51 AM Scope Out: 10:50:51 AM Total Procedure Duration Time 0 hours 3 minutes 0 seconds Findings: LA Grade A (one or more mucosal breaks less than 5 mm, not extending between tops of 2 mucosal folds) esophagitis with no bleeding was found 36 to 38 cm from the incisors. The entire examined stomach was normal. One non-bleeding cratered duodenal ulcer with no stigmata of bleeding was found in the duodenal bulb. The lesion was 6 mm in largest dimension. Biopsies were taken with a cold forceps for histology. Verification of patient identification for the specimen was done. Estimated blood loss was minimal. Impression: - LA Grade A reflux esophagitis. - Normal stomach. - One non-bleeding duodenal ulcer with no stigmata of bleeding. Biopsied. Recommendation: - Discharge patient to home. - Resume previous diet. - Continue present medications. - Await pathology results. - Use Protonix (pantoprazole) 40 mg PO BID for 4 weeks. Procedure Code(s): --- Professional --- 13992, Esophagogastroduodenoscopy, flexible, transoral; with biopsy, single or multiple CPT copyright 2017 [employer]. All rights reserved. The codes documented in this report are preliminary and upon magazine editor review may be revised to meet current compliance requirements. Slim Russell DO 12/15/2021 10:57:29 AM This report has been signed electronically. Number of Addenda: 1 Note Initiated On: 12/15/2021 10:36 AM Addendum Number: 1 Addendum Date: 02/19/2022 6:02:40 AM MAC was used as sedation for this procedure. Slim Russell DO 02/19/2022 6:02:47 AM This report has been signed electronically.
--- NOTE | 2021-12-15 10:58 | OP.CCLET_ITS ---
02/19/2022 Warren Cisse Re : Upper GI endoscopy procedure for Jemima Layton Dear [place] This procedure was performed on Wednesday, December 15, 2021. My impressions and recommendations are as follows: Impressions : - LA Grade A reflux esophagitis. - Normal stomach. - One non-bleeding duodenal ulcer with no stigmata of bleeding. Biopsied. Recommendations : - Discharge patient to home. - Resume previous diet. - Continue present medications. - Await pathology results. - Use Protonix (pantoprazole) 40 mg PO BID for 4 weeks. My findings are described in the full procedure note, which is enclosed. If I can be of further assistance, please feel free to contact me at . Sincerely, Slim Russell, 12/15/2021 10:57:29 AM This report has been signed electronically.
[2021-12-15] MEDS: Amiodarone 200 MG Tablet PO (11:56)
[2021-12-15] MEDS: Vitamin B Comp W-C Capsule 1 CAP PO (11:56)
[2021-12-15] MEDS: Pantoprazole Sodium 40 MG Tablet PO ×2 (11:56→21:38)
[2021-12-15] MEDS: SEVELAMER CARBONATE 800 MG TABLET PO ×2 (11:56→17:24)
--- NOTE | 2021-12-15 12:07 | PN.HOSP_ITS ---
Subjective Subjective Patient seen and examined. She was resting calmly. She had no active complaints and denied any fever, chills, chest pain, palpitations, dizziness, nausea or vomiting. Review of systems is otherwise negative. Objective Data Objective Data Vital Signs: Vital Signs Temp Pulse Resp BP Pulse Ox O2 Del Method O2 Flow Rate 97.7 F L 76 17 137/61 H 100 Nasal Cannula 2 12/15/21 11:54 12/15/21 11:54 12/15/21 11:54 12/15/21 11:54 12/15/21 11:54 12/15/21 11:54 12/15/21 11:54 Oxygen Flow Rate (L/min) 2 Oxygen Delivery Method Nasal Cannula Weight: 124 lb 8.979 oz Body Mass Index (BMI) 23.5 Intake & Output: Intake and Output for Last 24 Hours 12/13/21 12/14/21 12/15/21 23:59 23:59 23:59 Intake Total 280 / 280 2090 / 2090 330 / 330 Output Total 0 / 0 Balance 280 / 280 2090 / 2090 330 / 330 Lab / Micro Data Result Diagrams: 12/15/21 07:03 12/15/21 07:03 Labs: Laboratory Results - last 24 hr 12/15/21 07:03: WBC 15.8 H, RBC 2.66 L, Hgb 9.0 L, Hct 28.6 L, MCV 107.5 H, MCH 33.8 H, MCHC 31.5 L, RDW Std Deviation 71.2 H, RDW Coeff of Keri 18.5 H, Plt Count 450, MPV 10.2, Immature Gran % (Auto) 2.400 H, Neut % (Auto) 81.3 H, Lymph % (Auto) 6.2 L, [place] % (Auto) 8.6, Eos % (Auto) 0.9, Baso % (Auto) 0.6, Absolute Neuts (auto) 12.8 H, Absolute Lymphs (auto) 0.98, Nucleated RBC % 0.4, Anisocytosis 2+, Macrocytosis 1+ 12/15/21 07:03: Sodium 140, Potassium 4.4, Chloride 108 H, Carbon Dioxide 29.0, Anion Gap 3 L, BUN 32 H, Creatinine 4.38 H, Estim Creat Clear Calc 7.09, Est GFR (MDRD) Af Amer 12 L, Est GFR (MDRD) Non-Af 10 L, BUN/Creatinine Ratio 7.3 L, Glucose 124 H, Calcium 8.9, Total Bilirubin 0.90, AST 13 L, ALT 16, Alkaline Phosphatase 120 H, Total Protein 6.0 L, Albumin 1.7 L, Globulin 4.3 H, Albumin/Globulin Ratio 0.4 L 12/15/21 07:03: PT 16.8 H, INR 1.4, APTT 37.7 H Micro: Microbiology 12/13/21 20:41 Stool Stool Occult Blood (DIAN) - Final Occult Blood Positive 12/10/21 11:10 Blood Culture (Wb) - Left Hand Blood Culture - Preliminary No growth in 48 hours. 12/10/21 10:50 Blood Culture (Wb) - Left Wrist Blood Culture - Preliminary No growth in 48 hours. Physical Exam Const alert, oriented x3 and no apparent distress Orientation / Consciousness: confused HEENT normocephalic, head/scalp atraumatic and moist oral mucous membranes Eyes PERRL, EOMs intact bilaterally and conjunctivae normal Neck no lymphadenopathy and supple Resp normal respiratory effort, normal air movement, no retractions, no use of accessory muscles and clear to auscultation bilaterally Cardio regular rate, regular rhythm, S1 normal heart sound, S2 normal heart sound and no murmurs Cardio Narrative: converted to normal sinus rhythm GI normal to inspection, nondistended, normoactive bowel sounds, soft to palpation, non-tender and non-distended Extremity normal to inspection, full ROM and no clubbing, cyanosis or edema Skin General Skin Exam: no breakdown Neuro oriented x3, CN's II-XII intact bilaterally, moves all extremities, no focal motor deficits and no sensory deficits noted Sensorium / Orientation: awake, alert, oriented to person, oriented to place and oriented to time Coordination / Balance: [id number] test normal Motor Exam: strength 5/5 throughout Psych affect normal Assessment & Plan Assessment/Plan (1) Hypotension: (2) Paroxysmal atrial fibrillation with RVR: PLAN: Plan #Afib * off amiodarone drip and now on oral amiodarone as well as metoprolol * converted to normal sinus rhythm; did go back briefly into afib whilst underg oing dialysis, but converted to normal sinus rhythm * 2D echo: EF of 55%, with moderate aortic stenosis and moderately severe tricuspid valve and eccentric mitral valve insufficiency, as well as RVSP of 97mmHg. * not anticoagulated o/a of anemia * cardiology on board * #shock, * resolved. NOw off levophed * blood cultures negative. Cefepime discontinued. * critical care on board * #C Diff * diarrhea has resolved. * on oral vancomycin; to complete a 10 day course * hasn't had any diarrhea since admission * #Elevated troponin * initial troponin was elevated, at 157; trended up to a peak of 164 * 2D echo as above * cardiology on board; conservative management for now * Anemia of chornic disease * Hb was 7.5. Was transfused with one unit of PRBCs * Hb today is 9 * stool for occult blood positive * last Hb in record on 08/01/21 is 12.4 * iron profile showed iron of 69, with iron saturation of 22% and ferritin of 1974. This seems to be an anemia of chronic disease * switch to PO pantoprazole * GI on board: recommends an upper and lower endoscopy if permitted by her daughter in the future. * #ESRD * nephrology on board for dialysis * on sevelamer * #Hypothyroidism: * on synthroid. TSH is 0.19. free T4 is 1.67 which is high * will repeat on outpatient basis once critical illness has resolved * #Hyperlipidemia: on statin DVT prophylaxis; SCDs Code status: full code Disposition: awaiting placement * Charges/Coding Visit Charges Inpatient E&M: 46984 Subs Hosp L2
--- NOTE | 2021-12-15 16:25 | PCM.PN.CARD ---
Subjective Subjective Patient is a poor historian due to dementia. She appears to be comfortable in no distress Objective Data Vital Signs: Vital Signs Temp Pulse Resp BP Pulse Ox O2 Del Method O2 Flow Rate 97.8 F 72 17 135/76 H 94 Nasal Cannula 2 12/15/21 15:06 12/15/21 15:06 12/15/21 15:06 12/15/21 15:06 12/15/21 15:06 12/15/21 15:06 12/15/21 15:06 Oxygen Flow Rate (L/min) 2 Oxygen Delivery Method Nasal Cannula Weight: 124 lb 8.979 oz Body Mass Index (BMI) 23.5 Intake & Output: Intake and Output for Last 24 Hours 12/13/21 12/14/21 12/15/21 23:59 23:59 23:59 Intake Total 280 / 280 2089 / 2089 380 / 380 Output Total 0 / 0 Balance 280 / 280 2089 / 2089 380 / 380 Lab / Micro Data Result Diagrams: 12/15/21 07:03 12/15/21 07:03 Labs: Laboratory Results - last 24 hr 12/15/21 07:03: WBC 15.8 H, RBC 2.66 L, Hgb 9.0 L, Hct 28.6 L, MCV 107.5 H, MCH 33.8 H, MCHC 31.5 L, RDW Std Deviation 71.2 H, RDW Coeff of Keri 18.5 H, Plt Count 450, MPV 10.2, Immature Gran % (Auto) 2.400 H, Neut % (Auto) 81.3 H, Lymph % (Auto) 6.2 L, [place] % (Auto) 8.6, Eos % (Auto) 0.9, Baso % (Auto) 0.6, Absolute Neuts (auto) 12.8 H, Absolute Lymphs (auto) 0.98, Nucleated RBC % 0.4, Anisocytosis 2+, Macrocytosis 1+ 12/15/21 07:03: Sodium 140, Potassium 4.4, Chloride 108 H, Carbon Dioxide 29.0, Anion Gap 3 L, BUN 32 H, Creatinine 4.38 H, Estim Creat Clear Calc 7.09, Est GFR (MDRD) Af Amer 12 L, Est GFR (MDRD) Non-Af 10 L, BUN/Creatinine Ratio 7.3 L, Glucose 124 H, Calcium 8.9, Total Bilirubin 0.90, AST 13 L, ALT 16, Alkaline Phosphatase 120 H, Total Protein 6.0 L, Albumin 1.7 L, Globulin 4.3 H, Albumin/Globulin Ratio 0.4 L 12/15/21 07:03: PT 16.8 H, INR 1.4, APTT 37.7 H Micro: Microbiology 12/10/21 11:10 Blood Culture (Wb) - Left Hand Blood Culture - Final No growth in 5 days. 12/10/21 10:50 Blood Culture (Wb) - Left Wrist Blood Culture - Final No growth in 5 days. Cardiology Labs/Tests 12/15/21 07:03: WBC 15.8 H, RBC 2.66 L, Hgb 9.0 L, Hct 28.6 L, MCV 107.5 H, MCH 33.8 H, MCHC 31.5 L, Plt Count 450, MPV 10.2, Immature Gran % (Auto) 2.400 H, Neut % (Auto) 81.3 H, Lymph % (Auto) 6.2 L, [place] % (Auto) 8.6, Eos % (Auto) 0.9, Baso % (Auto) 0.6, Absolute Neuts (auto) 12.8 H, Nucleated RBC % 0.4 12/15/21 07:03: Sodium 140, Potassium 4.4, Chloride 108 H, Carbon Dioxide 29.0, Anion Gap 3 L, BUN 32 H, Creatinine 4.38 H, Est GFR (MDRD) Af Amer 12 L, Est GFR (MDRD) Non-Af 10 L, BUN/Creatinine Ratio 7.3 L, Glucose 124 H, Calcium 8.9, Total Bilirubin 0.90 12/15/21 07:03: PT 16.8 H, INR 1.4, APTT 37.7 H Rhythm: EKG: ECHO: Stress Test: Cardiac Cath: PCI: CT Surgery: Holter monitor: EPS: PPM: CXR: Chest CT Scan: Assessment & Plan Assessment/Plan (1) Atrial fibrillation: PLAN: Appears to be in sinus rhythm. Continue amiodarone. We will sign off at this time. Please let us know if we can be of any further assistance. Charges/Coding Visit Charges Inpatient E&M: 90308 Init Hosp L1
[2021-12-15] MEDS: Atorvastatin Calcium 80 MG Tablet PO (21:38)
[2021-12-16] VITALS (8 sets, daily range): BP systolic 138–141; BP diastolic 60–73; PULSE 61–90; RESP 18–20; TEMP 36.3–36.6; O2SAT 93–100
[2021-12-16] MEDS: Vancomycin 125 MG/5 ML Susp PO.SYRINGE PO ×3 (00:55→17:17)
[2021-12-16] MEDS: Levothyroxine 112 MCG Tablet PO (05:09)
[2021-12-16 06:25] LABS: Absolute Lymphocyte Count 0.84 X10^3/uL (0.83-4.51); Absolute Neutrophil Count 14.4 X10^3/uL (2.0-7.7); Basophil# 0.09 X10^3/uL; Basophil% 0.5 % (0-1); Eosinophil# 0.18 X10^3/uL; Eosinophils% 1.1 % (0-5); Hematocrit 29.5 % (37-47); Hemoglobin 9.3 g/dL (12.0-15.0); Lymphocyte # 0.84 X10^3/ul (0.83-4.51); Lymphocyte % 4.9 % (19-41); Mean Corp Hgb Conc 31.5 g/dL (32-36); Mean Corpuscular Hgb 34.7 pg (27.0-32.0); Mean Corpuscular Volume 110.1 fL (81-99); Mean Platelet Vol. 10.5 fl (6.2-12.0); Monocyte# 1.19 X10^3/uL; NRBC Flagged by Analyzer 0.5 % (0-5); Neutrophil # 14.43 X10^3/uL (2.7-7.7); Neutrophil % 84.7 % (47-70); POSITIVE MORPHOLOGY YES; Platelet Count 463 K/mm3 (150-450); RBC Distribution Width CV 17.6 % (11.6-14.6); RBC Distribution Width SD 70.3 fl (35.1-43.9); Red Blood Count 2.68 M/mm3 (4.2-5.4)
[2021-12-16 06:27] LABS: Differential Indicated SCAN CRITERIA MET
[2021-12-16 06:59] LABS: Anisocytosis 2+; Macrocytosis 2+
[2021-12-16 07:00] LABS: Polychromasia 1+
[2021-12-16] MEDS: Menthol/Lanolin/Calamine/Znox 113 GM Tube 1 APPLIC TOPICAL ×3 (09:00→17:17)
--- NOTE | 2021-12-16 09:24 | CASEMGMT ---
Addendum entered by Arlyn Mello 12/16/21 10:05: RONAL faxed updated clinicals to [facility] so pre-cert can be resubmitted. RONAL placed a call to Leatha at [facility] and updated her that if pre-cert is obtained today, pt will discharge to [facility] today after dialysis. Leatha states understanding. Plan: Payton Garcia pending pre-cert Original Note: Social Work Note RONAL placed a call to [facility] and spoke with Kamala. Kamala states that pre-cert is not good anymore, it was only good 12/13-12/15 so pre-cert will need to be resubmitted. RONAL to fax updated clinicals so pre-cert can be resubmitted. Plan: Payton Garcia pending pre-cert Arlyn Mello FILM SPLICER, CRANBERRY GROWER
--- NOTE | 2021-12-16 11:07 | PN.RENAL_ITS ---
Subjective Subjective seen on dialysis, proceeding without incident Objective Data Objective Data Vital Signs: Vital Signs Temp Pulse Resp BP Pulse Ox O2 Del Method O2 Flow Rate 97.4 F L 61 18 138/60 H 98 Nasal Cannula 3 12/16/21 09:06 12/16/21 09:06 12/16/21 09:06 12/16/21 09:06 12/16/21 09:06 12/16/21 09:06 12/16/21 09:06 Oxygen Flow Rate (L/min) 3 Oxygen Delivery Method Nasal Cannula Weight: 58.4 kg Body Mass Index (BMI) 23.5 Intake & Output: Intake and Output for Last 24 Hours 12/14/21 12/15/21 12/16/21 23:59 23:59 23:59 Intake Total 2089 430 / 630 260 / 260 Balance 2089 430 / 630 260 / 260 Lab / Micro Data Result Diagrams: 12/16/21 05:30 12/15/21 07:03 Labs: Laboratory Results - last 24 hr 12/14/21 02:30: Crossmatch See Detail 12/16/21 05:30: WBC 17.0 H, RBC 2.68 L, Hgb 9.3 L, Hct 29.5 L, MCV 110.1 H, MCH 34.7 H, MCHC 31.5 L, RDW Std Deviation 70.3 H, RDW Coeff of Keri 17.6 H, Plt Count 463 H, MPV 10.5, Immature Gran % (Auto) 1.800 H, Neut % (Auto) 84.7 H, Lymph % (Auto) 4.9 L, [place] % (Auto) 7.0, Eos % (Auto) 1.1, Baso % (Auto) 0.5, Absolute Neuts (auto) 14.4 H, Absolute Lymphs (auto) 0.84, Nucleated RBC % 0.5, Polychromasia 1+, Anisocytosis 2+, Macrocytosis 2+ Micro: Microbiology 12/10/21 11:10 Blood Culture (Wb) - Left Hand Blood Culture - Final No growth in 5 days. 12/10/21 10:50 Blood Culture (Wb) - Left Wrist Blood Culture - Final No growth in 5 days. 12/13/21 20:41 Stool Stool Occult Blood (DIAN) - Final Occult Blood Positive Physical Exam Const Orientation / Consciousness: confused Cardio Cardio Narrative: afib Extremity no clubbing, cyanosis or edema Assessment & Plan Assessment/Plan (1) ESRD (end stage renal disease) on dialysis: PLAN: dialysis MWF with AVF right upper arm. Currently on dialysis, proceeding w/o incident (2) Hypotension: PLAN: resolved (3) Atrial fibrillation: PLAN: rate controlled, cardio following (4) Clostridioides difficile diarrhea: PLAN: leukocytosis improving, vanco po (5) Diabetes: (6) HTN (hypertension): PLAN: stable (7) Heart disease: (8) Anemia: PLAN: epo on dialysis
--- NOTE | 2021-12-16 11:31 | DIALYSIS ---
Hemodialysis completed 3 hours and 15 min. Patient tolerated well. Fluid removed was 500 ml.
[2021-12-16] MEDS: Epoetin Alfa epbx 10,000 UNITS/ML 3000 UNIT IV (11:43)
--- NOTE | 2021-12-16 12:50 | CASEMGMT ---
Addendum entered by Arlyn Mello 12/16/21 14:44: RONAL placed a call to Leatha at [facility] and updated her that pt has been approved for SNF again and will discharge today. Leatha states understanding. Addendum entered by Arlyn Mello 12/16/21 14:20: RONAL received call from Kamala at [facility] stating pt still meets criteria for SNF and pt has been approved for SNF, can discharge to SNF today. RONAL updated Kamala that pt will discharge to [facility] today. Kamala states understanding. RONAL updated physician. Plan: Payton Garcia skilled today. Original Note: Social Work Note RONAL placed a call to [facility] and asked to speak to Kamala. [facility] states they sent a message to Kamala to call this worker back regarding pre-cert. RONAL waiting for call back. Plan: Payton Garcia pending pre-cert Arlyn Mello CALIBRATION SPECIALIST, ROLLER DIE CUTTING MACHINE OPERATOR
--- NOTE | 2021-12-16 14:17 | TREXTCAR_ITS ---
Diet Diet Order/Speech Therapy: 12/15/21 11:46 Diet: Regular - General Is pt able to select menu?: No Routine Orders/Code Status Routine Lab Work: CBC and BMP Code Status: Full Code Problem/Diagnosis (1) ESRD (end stage renal disease) on dialysis: Status: Acute Code(s): N18.6 - End stage renal disease; Z99.2 - Dependence on renal dialysis (2) Hypotension: Status: Acute Code(s): I95.9 - Hypotension, unspecified (3) Atrial fibrillation: Status: Acute Code(s): I48.91 - Unspecified atrial fibrillation (4) Clostridioides difficile diarrhea: Status: Acute Code(s): A04.72 - Enterocolitis due to Clostridium difficile, not specified as recurrent (5) Diabetes: Status: Acute Code(s): E11.9 - Type 2 diabetes mellitus without complications (6) HTN (hypertension): Status: Chronic Code(s): I10 - Essential (primary) hypertension (7) Heart disease: Status: Acute Code(s): I51.9 - Heart disease, unspecified (8) Anemia: Status: Acute Code(s): D64.9 - Anemia, unspecified Allergies/Procedures Done in Hospital Allergies Penicillins Allergy (Mild, Verified 08/01/21 10:52) Unknown Procedures: EGD Type of Care/Length of Stay Estimated LOS: Convalescent Care Less Than 30 days Type of Care Needed: Skilled Rehab Potential: Good Prognosis: Good Additional Orders/Day of Discharge Day of Discharge: 12/16/21 Dietary and Speech Recommendations Dietitian Recommendations/Changes: Will advance diet to regular diet as tolerated when medically able Will reorder 120mL Nepro ONS 4x/day w/ medpass for additional calories/protein if consumed when medically able. Will adjust diet/ONS pending PO intake, labs, and acceptance of ONS. Discharge Plan Admission Admit Date/Time: 12/10/21 01:14 Attending Provider: Benny Rosado Primary Care Provider: Warren Cisse Consulting Providers: Braden Green ; Braden Armas ; Gilmar Luis ; Lambert Pelayo ; Karmen Diaz NP ; Kelsi Queen ; Salma Barrett Discharge Orders/Prescriptions Prescriptions: New amiodarone 200 mg Tablet 200 mg PO DAILY Qty: 0 0RF menthol-zinc oxide [Calmoseptine] 0.44-20.6 % Ointment 1 applic topical 4X/DAY Qty: 0 0RF Protocol: *Topical Application Instructions APPLICATION INSTRUCTIONS: apply to buttocks Nepro Carb Steady 0.08 gram-1.8 kcal/mL Liquid 120 ml PO 4X/DAY Qty: 0 0RF pantoprazole 40 mg Tablet,Delayed Release (Dr/Ec) 40 mg PO BID Qty: 0 0RF Firvanq 25 mg/mL Recon Soln 125 mg PO Q6 Qty: 0 0RF Continued carvedilol 3.125 mg tablet 3.125 mg PO BID paroxetine HCl [Paxil] 40 mg tablet 40 mg PO DAILY sevelamer carbonate 800 mg tablet 800 mg PO QPC nateglinide 60 mg tablet 60 mg PO TID ergocalciferol (vitamin D2) 50,000 unit capsule 50,000 unit PO .QOWEEK Label Comments: TAKES EVERY OTHER WEEK rosuvastatin 40 MG tablet 40 mg PO QHS Cyanocobalamin (Vitamin B-12) [Cyanocobalamin Injection] 1,000 MCG/ML Vial 1,000 mcg IM QMONTH B complex-vitamin C-folic acid 0.8 MG tablet 0.8 mg PO DAILY levothyroxine [Synthroid] 112 mcg Tablet 112 mcg PO DAILY Referrals / Follow Up: Warren Cisse MD [Primary Care Provider] - Disposition Disposition (needs filled in before D/C Order can be placed): Intermediate Facility
--- NOTE | 2021-12-16 14:34 | PCM.DC.SUM ---
Providers Date of Admission: 12/10/21 Primary Care Physician: Dr. Warren Cisse MD Consultations 12/10/21 01:10 Consult: Nephrology Routine Consulting Provider: Kelsi Queen Reason for Consult: dialsis EMERGENT Consult: No Notified: Yes Date Notified: 12/10/21 Time Notified: 01:13 Method of Notification: Text 12/10/21 08:07 Consult: Track Equipment Operator / Pulmonary Medicine Routine Consulting Provider: Pulmonary Medicine [facility] Reason for Consult: hypotension, afib EMERGENT Consult: No MD Notified: Yes Date Notified: 12/10/21 Time Notified: 08:07 Method of Notification: Text 12/10/21 08:09 Consult: Cardiology Routine Consulting Provider: Braden Armas Reason for Consult: afib with RVR EMERGENT Consult: No Notified: Yes Date Notified: 12/10/21 Time Notified: 08:09 Method of Notification: Text 12/14/21 07:33 Consult: Gastroenterology Routine Consulting Provider: [facility] Reason for Consult: acute anemia, positive stool occult blood EMERGENT Consult: No Notified: Yes Date Notified: 12/14/21 Time Notified: 07:33 Method of Notification: Text Reason For Visit: C-DIFF, ESRD, ELEVATED TROP Diagnosis Discharge Diagnosis (1) ESRD (end stage renal disease) on dialysis: Status: Acute Code(s): N18.6 - End stage renal disease; Z99.2 - Dependence on renal dialysis (2) Hypotension: Status: Acute Code(s): I95.9 - Hypotension, unspecified (3) Atrial fibrillation: Status: Acute Code(s): I48.91 - Unspecified atrial fibrillation (4) Clostridioides difficile diarrhea: Status: Acute Code(s): A04.72 - Enterocolitis due to Clostridium difficile, not specified as recurrent (5) Diabetes: Status: Acute Code(s): E11.9 - Type 2 diabetes mellitus without complications (6) HTN (hypertension): Status: Chronic Code(s): I10 - Essential (primary) hypertension (7) Heart disease: Status: Acute Code(s): I51.9 - Heart disease, unspecified (8) Anemia: Status: Acute Code(s): D64.9 - Anemia, unspecified Medications at Discharge Home Medications carvedilol 3.125 mg tablet 3.125 mg PO BID BP 03/30/18 ergocalciferol (vitamin D2) 1,250 mcg (50,000 unit) capsule 50,000 unit PO .QOWEEK Check with primary doctor 03/30/18 nateglinide 60 mg tablet 60 mg PO TID DIABETES 03/30/18 paroxetine HCl 40 mg tablet (Paxil) 40 mg PO DAILY Check with primary doctor 03/30/18 sevelamer carbonate 800 mg tablet 800 mg PO QPC Check with primary doctor 03/30/18 Cyanocobalamin (Vitamin B-12) [Cyanocobalamin Injection] 1,000 mcg IM QMONTH Check with primary doctor 04/06/18 rosuvastatin 40 mg tablet 40 mg PO QHS CHOLESTEROL 04/06/18 vitamin B complex-vitamin C-folic acid 0.8 mg tablet 0.8 mg PO DAILY 05/03/19 levothyroxine 112 mcg tablet (Synthroid) 112 mcg PO DAILY THYROID 12/10/21 amiodarone 200 mg tablet 200 mg PO DAILY #0 tabs 12/16/21 menthol 0.44 %-zinc oxide 20.6 % topical ointment (Calmoseptine) 1 applic topical 4X/DAY #0 grams 12/16/21 nut.tx.imp.renal fxn,lac-reduc 0.08 gram-1.8 kcal/mL oral liquid (Nepro Carb Steady) 120 ml PO 4X/DAY #0 mL 12/16/21 pantoprazole 40 mg tablet,delayed release 40 mg PO BID #0 tabs 12/16/21 vancomycin 25 mg/mL oral solution (Firvanq) 125 mg (5 mL) PO Q6 #0 mL 12/16/21 Hospital Course Operations None Procedures 2-D Echocardiogram and EGD Summary of Care Provided Minutes Spent on Discharge: 45 Hospital Course: Per HPI: CARINE HODGE, is a 86 F who presents to the emergency room from dialysis where she had emesis x2.? She became dizzy, confused after approximately 2 hours of dialysis.? Patient has been treated for C. difficile with oral vancomycin 125 mg 4 times daily since last and has had improvement in her symptoms and has had about 2 bowel movements that are still loose daily.? She has a history of dementia and her daughter is power of batting machine operator insulation is here to give history and states that the patient wishes to be DNR Comfort Care at this time.? She will be admitted to progressive care unit and managed for C. difficile colitis and consult nephrology for anticipated need for dialysis. Hospital Course: 1. A. fib with hypovolemic shock versus distributive shock/elevated troponin with moderate aortic stenosis and severe pulmonary hypertension?86-year-old female presented to the hospital 2 hours after dialysis and was feeling dizzy. She had recently started treatment for C. difficile. She had to be admitted to the ICU and was placed on Levophed. She does have end-stage renal disease and is on dialysis Thursday. She is also noted to have an elevated troponin so cardiology was consulted and did not have any further recommendations other than continuing with amiodarone. They did not recommend any type of invasive intervention at this time. Her shock has completely resolved and her A. fib is stabilized on the amiodarone though she did have to come down from twice daily dosing to daily dosing secondary to heart rate. She did have an echo which demonstrated normal EF however she has moderate aortic stenosis and an RVSP of 97 mmHg consistent with very severe pulmonary hypertension. She does not qualify for anticoagulation secondary to her anemia, she did have an EGD during her hospitalization which demonstrated duodenal ulcer that was not actively bleeding at that time. I discussed the plan with her daughter who is also her POA who expressed understanding of the risk and benefits of discharge and is okay with her going to SNF today. I did also have a 25-minute advance care planning discussion with the daughter in regard to prognosis. 2. Anemia of chronic disease as well as acute blood loss anemia?she does have history of renal disease which can explain for some of her low hemoglobin and she did receive EPO while in the hospital. She was also transfused 1 unit of PRBCs and had an EGD secondary to positive occult blood in her stool. She was found to have duodenal ulcer that was not actively bleeding. Biopsy was obtained and will continue with PPI twice daily. 3. C. difficile?she was diagnosed on 12/05/2021 and started on p.o. vancomycin, she should discontinue her vancomycin on 12/20/2021 to complete her course. 4. End-stage renal disease on dialysis, hypothyroidism, hyperlipidemia, hypertension, dementia are all chronic medical conditions which complicate her care. Her home medications were continued where appropriate Physical Exam Narrative General: Alert, confused, no apparent distress, little bit irritated this morning she felt my questions were dumb HEENT: Atraumatic, PERRLA, EOMI, Normocephalic Oral: Moist Mucosa Neck: Supple, No JVD Lungs: Clear to auscultation, Normal air movement, No rhonchi, No wheeze, No rales Cardiovascular: Regular rate, Regular Rhythm, Normal S1, Normal S2, No murmurs Abdomen: Soft, Non Tender, Non-Distended, No Hepato-splenomegaly Extremities: No edema, Capillary Refill Less than 3 Seconds Skin: No rashes, No breakdown Musculoskeletal: No Tenderness to Palpation of Joints or Extremities Neurological: Cranial nerves II-XII grossly intact, Motor Exam 5/5 strength throughout, Sensory exam intact to light touch and pain Psych/Mental Status: Flat affect, Appropriate Weight / BMI Weight Weight: 128 lb 11.999 oz Body Mass Index (BMI) 23.5 ABG / Lab / Microbiology Data Result Diagrams: 12/16/21 05:30 12/15/21 07:03 Laboratory: Laboratory Results - last 24 hr 12/14/21 02:30: Crossmatch See Detail 12/16/21 05:30: WBC 17.0 H, RBC 2.68 L, Hgb 9.3 L, Hct 29.5 L, MCV 110.1 H, MCH 34.7 H, MCHC 31.5 L, RDW Std Deviation 70.3 H, RDW Coeff of Keri 17.6 H, Plt Count 463 H, MPV 10.5, Immature Gran % (Auto) 1.800 H, Neut % (Auto) 84.7 H, Lymph % (Auto) 4.9 L, [place] % (Auto) 7.0, Eos % (Auto) 1.1, Baso % (Auto) 0.5, Absolute Neuts (auto) 14.4 H, Absolute Lymphs (auto) 0.84, Nucleated RBC % 0.5, Polychromasia 1+, Anisocytosis 2+, Macrocytosis 2+ Microbiology: Microbiology 12/10/21 11:10 Blood Culture (Wb) - Left Hand Blood Culture - Final No growth in 5 days. 12/10/21 10:50 Blood Culture (Wb) - Left Wrist Blood Culture - Final No growth in 5 days. 12/13/21 20:41 Stool Stool Occult Blood (DIAN) - Final Occult Blood Positive Meaningful Use Info Meaningful Use Diagnoses (Choose all that apply): None applicable Discharge Plan Admission Admit Date/Time: 12/10/21 01:14 Attending Provider: Benny Rosado Primary Care Provider: Warren Cisse Consulting Providers: Braden Green ; Braden Armas ; Gilmar Luis ; Lambert Pelayo ; Karmen Diaz NP ; Kelsi Queen ; Salma Barrett Discharge Orders/Prescriptions Prescriptions: New amiodarone 200 mg Tablet 200 mg PO DAILY Qty: 0 0RF menthol-zinc oxide [Calmoseptine] 0.44-20.6 % Ointment 1 applic topical 4X/DAY Qty: 0 0RF Protocol: *Topical Application Instructions APPLICATION INSTRUCTIONS: apply to buttocks Nepro Carb Steady 0.08 gram-1.8 kcal/mL Liquid 120 ml PO 4X/DAY Qty: 0 0RF pantoprazole 40 mg Tablet,Delayed Release (Dr/Ec) 40 mg PO BID Qty: 0 0RF Firvanq 25 mg/mL Recon Soln 125 mg PO Q6 Qty: 0 0RF Continued carvedilol 3.125 mg tablet 3.125 mg PO BID paroxetine HCl [Paxil] 40 mg tablet 40 mg PO DAILY sevelamer carbonate 800 mg tablet 800 mg PO QPC nateglinide 60 mg tablet 60 mg PO TID ergocalciferol (vitamin D2) 50,000 unit capsule 50,000 unit PO .QOWEEK Label Comments: TAKES EVERY OTHER WEEK rosuvastatin 40 MG tablet 40 mg PO QHS Cyanocobalamin (Vitamin B-12) [Cyanocobalamin Injection] 1,000 MCG/ML Vial 1,000 mcg IM QMONTH B complex-vitamin C-folic acid 0.8 MG tablet 0.8 mg PO DAILY levothyroxine [Synthroid] 112 mcg Tablet 112 mcg PO DAILY Referrals / Follow Up: Warren Cisse MD [Primary Care Provider] - Disposition Disposition (needs filled in before D/C Order can be placed): Shelter Facility Charges/Coding Visit Charges Inpatient E&M: 96792 Disch Hosp Procedures Hospitalists Procedures: 06254 Advncd Care Plan 30 Min
--- NOTE | 2021-12-16 15:13 | CASEMGMT ---
Addendum entered by Arlyn Mello 12/16/21 16:30: RONAL faxed COVID test/tool to [facility]. RONAL put originals in SNF folder. RONAL updated RN. RONAL placed a call to pt's daughter Lorenza and updated her on transportation time. Lorenza states she will likely come to [facility] as she has time and wants to get pt's things. RONAL placed a call to Leatha at [facility] and updated her on transportation time. Plan: [facility] skilled under convalescent stay with Physician's transporting pt via cot at 5:30pm Arlyn MONTELONGO, [employer] Original Note: Social Work Note SW in to speak with pt. SW introduced self and role at [facility]. SW informed pt that she will discharge to [facility] today and that this worker will call her daughter to update. Pt states understanding, agreeable to this worker calling her daughter. RONAL reviewed chart and noticed that the other day pt stated that she just wanted to . Pt states I sometimes feel like that. Pt denied any plans to harm self. Pt denied any current thoughts/plans to harm self. Pt states that she is just ready when the [facility] her [facility]. RONAL then received call from pt's daughter Lorenza. Lorenza states that she spoke with the physician who stated pt was going to discharge to [facility] today and asked if someone will let her know the time that pt leaves. RONAL informed Lorenza that this worker will call her once transportation is arranged to let he know the time. Lorenza states she wants to make sure pt's bag, pt's glasses, and pt's container with plate goes with her. RONAL faxed completed discharge paperwork to [facility] including transfer to extended care facility, signed medication list, any scripts, and PAS/RR. Original in SNF folder and copy on pt's chart. RONAL spoke with RN, pt to transport via cot. SW to arrange transportation once pt's COVID test returns. Plan: [facility] skilled today Arlyn Mello RETOUCHING OPERATOR, [employer]
[2021-12-16] MEDS: SEVELAMER CARBONATE 800 MG TABLET PO (17:16)
== END 2021-12-16 19:30 | disposition skilled nursing facility (03) | DRG 371 ==
LOC: PCU 07:40 → ICU 09:28 → PCU 12-12 13:22
PROVIDERS: Internal Medicine Critical Care Medicine; Internal Medicine Gastroenterology; Internal Medicine Nephrology; Student in an Organized Health Care Education/Training Program; Admitting Provider Family Medicine; PCP Internal Medicine; Visit Provider Family Medicine
PROC: 0DJ08ZZ Inspection of Upper Intestinal Tract, Via Natural or Artificial Opening Endoscopic (ICD-10-PCS; CPT 43235; principal; 2021-12-15 10:30)
DX: A04.72 Enterocolitis due to Clostridium difficile, not specified as recurrent (principal); N18.6 End stage renal disease; R57.1 Hypovolemic shock; R57.8 Other shock; I12.0 Hypertensive chronic kidney disease with stage 5 chronic kidney disease or end stage renal disease; D62 Acute posthemorrhagic anemia; I24.8 Other forms of acute ischemic heart disease; E88.09 Other disorders of plasma-protein metabolism, not elsewhere classified; D63.8 Anemia in other chronic diseases classified elsewhere; I95.9 Hypotension, unspecified; I27.20 Pulmonary hypertension, unspecified; E11.22 Type 2 diabetes mellitus with diabetic chronic kidney disease; I48.0 Paroxysmal atrial fibrillation; F03.90 Unspecified dementia, unspecified severity, without behavioral disturbance, psychotic disturbance, mood disturbance, and anxiety; Z99.2 Dependence on renal dialysis; E78.00 Pure hypercholesterolemia, unspecified; E03.9 Hypothyroidism, unspecified; I08.3 Combined rheumatic disorders of mitral, aortic and tricuspid valves; K21.00 Gastro-esophageal reflux disease with esophagitis, without bleeding; K29.50 Unspecified chronic gastritis without bleeding; E86.0 Dehydration; R01.1 Cardiac murmur, unspecified; K26.9 Duodenal ulcer, unspecified as acute or chronic, without hemorrhage or perforation; Z79.84 Long term (current) use of oral hypoglycemic drugs; Z79.899 Other long term (current) drug therapy
CPT/HCPCS: 36415; 71045; 80048; 80053; 82274; 82728; 82962; 83540; 83550; 83605; 83735; 84100; 84439; 84443; 84484; 85014; 85018; 85025; 85610; 85730; 86850; 86900; 86901; 86920; 86922; 87040; 87426; 88305; 90937; 93005; 93306; 97162; 97166; 97530; 97535; 97802; 97803; J7030; J7040; J7050; P9016; A4216; G0257; J2405; Q5106